=== PATIENT | female | born 1985 | race American Indian/Alaskan Native ===

== ENCOUNTER 2017-02-22 19:34 | Inpatient (IN) | payer OTHER ==
--- NOTE | 2017-02-22 19:57 | C.PDOC ---
History Of Present Illness A 31 y/o female c/o lower abdominal pain for 3 days. Pain went away, but then returned today. Patient has a hx of with her LMP on December 31. Reports dysuria, but denies fever, chills, nausea, vomiting, or diarrhea. Time Seen by Provider: 02/22/17 19:50 Chief Complaint (Nursing): Abdominal Pain History Per: Patient History/Exam Limitations: no limitations Onset/Duration Of Symptoms: Days (3) Current Symptoms Are (Timing): Still Present Severity: Mild Location Of Pain/Discomfort: RLQ, LLQ Radiation Of Pain To:: None Quality Of Discomfort: "Pain" Associated Symptoms: Urinary Symptoms (Dysuria). denies: Fever, Chills, Nausea , Vomiting, Diarrhea Exacerbating Factors: None Alleviating Factors: None Recent travel outside of the [place]: No Additional History Per: Patient Abnormal Vaginal Bleeding: No Past Medical History Reviewed: Historical Data, Nursing Documentation, Vital Signs Vital Signs: Last Vital Signs Temp 98.7 F 02/22/17 22:30 Pulse 67 02/22/17 22:30 Resp 18 02/22/17 22:30 BP 184/115 H 02/22/17 22:30 Pulse Ox 100 02/22/17 22:30 Family History: States: Unknown Family Hx Review Of Systems Except As Marked, All Systems Reviewed And Found Negative. Constitutional: Negative for: Fever, Chills Gastrointestinal: Positive for: Abdominal Pain. Negative for: Nausea, Vomiting , Diarrhea Genitourinary: Positive for: Dysuria Physical Exam - Physical Exam Appears: Non-toxic, In Acute Distress (Mild distress due to pain) Skin: Warm, Dry Head: Atraumatic, Normacephalic Oral Mucosa: Moist Cardiovascular: Rhythm Regular Respiratory: Normal Breath Sounds, No Rales, No Rhonchi, No Wheezing Gastrointestinal/Abdominal: Soft, Tenderness (Bilateral lower abdomen), No Guarding, No Rebound Back: Normal Inspection, No CVA Tenderness Pelvic: Normal External Exam, Adnexal Tenderness (left sided) Neurological/Psych: Oriented x3, Normal Speech, Normal Cognition ED Course And Treatment - Laboratory Results Result Diagrams: 02/22/17 20:34 02/22/17 20:34 Pulse Ox Interpretation: Normal Medical Decision Making Medical Decision Making: Impression: A 31 y/o female c/o lower abdominal pain for 3 days. Plans: * US pelvic * US transvaginal * Blood work up * UA * IV fluids 22:30. Spoke with Dr. 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 Disposition Discussed With .: Leonid Wakefield Doctor Will See Patient In The: Hospital Counseled Patient/Family Regarding: Diagnosis - Disposition Disposition: HOSPITALIZED Disposition Time: 22:56 Condition: STABLE Forms: [facility] (German) - Clinical Impression Clinical Impression: Abdominal pain, Ectopic - Scribe Statement The provider has reviewed the documentation as recorded by the Scribe Errol butts All medical record entries made by the Scribe were at my direction and personally dictated by me. I have reviewed the chart and agree that the record accurately reflects my personal performance of the history, physical exam, medical decision making, and the department course for this patient. I have also personally directed, reviewed, and agree with the discharge instructions and disposition.
[2017-02-22] MEDS ORDERED: Sodium Chloride 0.9% 1,000 ML IV ONE (19:58)
[2017-02-22 20:43] LABS: BASO # 0.1 K/uL (0.0-0.2); BASO % 0.6 % (0.0-2.0); HEMATOCRIT 37.9 % (34.0-47.0); LYMPH # 0.4 K/uL (1.0-4.3); LYMPH % 4.4 % (20.0-40.0); MEAN CELL VOLUME 84.1 fL (81.0-99.0); MEAN CORPUSCULAR HEMOGLOBIN 28.3 pg (27.0-31.0); MEAN CORPUSCULAR HGB CONC 33.6 g/dL (33.0-37.0); MEAN PLATELET VOLUME 9.5 fL (7.2-11.7); MONO # 0.2 K/uL (0.0-0.8); MONO % 2.4 % (0.0-10.0); PLATELET COUNT 151 K/uL (130-400); RED CELL DISTRIBUTION WIDTH 18.7 % (11.5-14.5); WHITE BLOOD COUNT 10.1 K/uL (4.8-10.8)
[2017-02-22] MEDS ORDERED: Sodium Chloride 0.9% 1,000 ML ONE (20:43)
[2017-02-22 20:49] LABS: RBC URINE 18 /hpf (0-3); URINE BACTERIA OCC (<OCC); URINE BILIRUBIN NEGATIVE (NEGATIVE); URINE COLOR Yellow (YELLOW); URINE GLUCOSE (UA) 1+ mg/dL (Normal); URINE KETONE NEGATIVE (NEGATIVE); URINE LEUKOCYTE ESTERASE TRACE Leu/uL (Negative); URINE PROTEIN 1+ mg/dL (NEGATIVE); URINE UROBILINOGEN NORMAL mg/dL (0.2-1.0); WBC URINE 3 /hpf (0-5)
[2017-02-22 20:51] LABS: URINE BLOOD 1+ (NEGATIVE)
[2017-02-22 20:53] LABS: CHLORIDE 101 mmol/L (98-107); POTASSIUM 3.6 mmol/L (3.6-5.2); SODIUM 136 mmol/L (132-148)
[2017-02-22 20:54] LABS: INR 1.1
[2017-02-22 20:55] LABS: BILIRUBIN,TOTAL 0.6 mg/dL (0.2-1.3); CARBON DIOXIDE 24 mmol/L (22-30); GFR AFRICAN-AMERICAN > 60
[2017-02-22 20:56] LABS: ALB/GLOB RATIO 1.1 (1.0-2.1); ALKALINE PHOSPHATASE 72 U/L (38-126); ALT/SGPT 29 U/L (9-52); AST/SGOT 21 U/L (14-36); BLOOD UREA NITROGEN 9 mg/dL (7-17); CALCIUM 9.6 mg/dl (8.6-10.4); GLUCOSE,RANDOM 119 mg/dL (65-105); TOTAL PROTEIN 7.4 g/dL (6.3-8.3)
[2017-02-22 21:47] LABS: NEUTROPHIL 93 % (50-75); TOTAL CELLS COUNTED 100
[2017-02-22 21:48] LABS: LARGE PLATELETS PRESENT
--- NOTE | 2017-02-22 22:11 | US ---
EXAM: US Pelvis, Transabdominal US Pelvis, Transvaginal CLINICAL HISTORY: 31 years old, female; Pain; Abdominal pain; Lower abdomen; Additional info: Lower abf pain/ spotting TECHNIQUE: Real-time transabdominal and transvaginal pelvic ultrasound (complete) with image documentation. Transvaginal imaging was used for better evaluation of the endometrium and adnexa. COMPARISON: No relevant prior studies available. FINDINGS: Uterus/cervix: Measured at 9 x 5 x 5.8 cm. Endometrial stripe measured at 1.6 cm. 3.7 cm fundal fibroid. Right ovary: Measured at 3.1 x 2.2 x 3.4 cm. Follicles. Doppler blood flow. Left ovary: 1.5 cm complex focus in the left ovary. Follicles. Doppler blood flow. Free fluid: Large amount of complex free fluid. IMPRESSION: 1.5 cm complex focus in the left ovary. Thickened endometrial stripe measuring 1.6 cm. Large amount of complex free fluid. 3.7 cm fundal fibroid. No intrauterine is identified. Appearance may represent ectopic . Differential diagnosis includes spontaneous , very early intrauterine , and ectopic . Correlate with history. Followup beta-hCG and ultrasound recommended.
--- NOTE | 2017-02-22 23:01 | CP.PCM.HP ---
History of Present Illness - History of Present Illness History of Present Illness: 31 yr lmp 01/02/17 came with c/o abdominal pain started 3 days ago , got worse today, no n/v. pt has not sen an obgyn in 1 year. preg test 1 week ago. obhhx 1 x c/s pmh htn /// psh c/s soch den sono left complex cyst. large amount of complex fluid bhcg 3800 abd soft, +tenderness on left side Present on Admission - Present on Admission Any Indicators Present on Admission: No History of DVT/PE: No History of Uncontrolled Diabetes: No Urinary Catheter: No Decubitus Ulcer Present: No Review of Systems - Gastrointestinal Gastrointestinal: Abdominal Pain Past Patient History - Infectious Disease Hx of Infectious Diseases: None - Past Social History Smoking Status: Light Smoker < 10 Cigarettes Daily - PSYCHIATRIC Hx Substance Use: No - SURGICAL HISTORY Hx Surgeries: No Meds Allergies/Adverse Reactions: Allergies Allergy/AdvReac Type Severity Reaction Status Date / Time No Known Allergies Allergy Unverified 02/22/17 19:55 Physical Exam - Constitutional Appears: Well - Respiratory Exam Respiratory Exam: Clear to Auscultation Bilateral - Cardiovascular Exam Cardiovascular Exam: REGULAR RHYTHM - Exam Speculum exam: NORMAL SPECULUM EXAM Bimanual exam: Adenexal Mass (adenxal ten), Uterine Tenderness - Extremities Exam Extremities exam: Positive for: normal inspection Results - Vital Signs Recent Vital Signs: Last Vital Signs Temp 98.7 F 02/22/17 22:30 Pulse 67 02/22/17 22:30 Resp 18 02/22/17 22:30 BP 184/115 H 02/22/17 22:30 Pulse Ox 100 02/22/17 22:30 - Labs Result Diagrams: 02/22/17 20:34 02/22/17 20:34 Labs: Laboratory Results - last 24 hr 02/22/17 02/22/17 02/22/17 20:34 20:34 20:34 WBC 10.1 RBC 4.51 Hgb 12.7 Hct 37.9 MCV 84.1 MCH 28.3 MCHC 33.6 RDW 18.7 H Plt Count 151 MPV 9.5 Neut % (Auto) 92.6 H Lymph % (Auto) 4.4 L [place] % (Auto) 2.4 Eos % (Auto) 0.0 Baso % (Auto) 0.6 Neut # 9.3 H Lymph # 0.4 L [place] # 0.2 Eos # 0.0 Baso # 0.1 Neutrophils % (Manual) 93 H Lymphocytes % (Manual) 5 L Monocytes % (Manual) 2 Platelet Estimate Normal Large Platelets Present Hypochromasia (manual) Slight Microcytosis (manual) Slight PT 11.8 INR 1.1 APTT 28 Sodium Potassium Chloride Carbon Dioxide Anion Gap BUN Creatinine Est GFR ( Amer) Est GFR (Non-Af Amer) Random Glucose Calcium Total Bilirubin AST ALT Alkaline Phosphatase Total Protein Albumin Globulin Albumin/Globulin Ratio Beta HCG, Quant Urine Color Yellow Urine Clarity Hazy Urine pH 5.0 Ur Specific [place] 1.019 Urine Protein 1+ H Urine Glucose (UA) 1+ Urine Ketones Negative Urine Blood 1+ H Urine Nitrate Negative Urine Bilirubin Negative Urine Urobilinogen Normal Ur Leukocyte Esterase Trace Urine WBC (Auto) 3 Urine RBC (Auto) 18 H Ur Squamous Epith Cells 15 H Urine Bacteria Occ H Urine HCG, Qual Positive Blood Type Antibody Screen 02/22/17 02/22/17 20:34 20:39 WBC RBC Hgb Hct MCV MCH MCHC RDW Plt Count MPV Neut % (Auto) Lymph % (Auto) [place] % (Auto) Eos % (Auto) Baso % (Auto) Neut # Lymph # [place] # Eos # Baso # Neutrophils % (Manual) Lymphocytes % (Manual) Monocytes % (Manual) Platelet Estimate Large Platelets Hypochromasia (manual) Microcytosis (manual) PT INR APTT Sodium 136 Potassium 3.6 Chloride 101 Carbon Dioxide 24 Anion Gap 15 BUN 9 Creatinine 0.8 Est GFR ( Amer) > 60 Est GFR (Non-Af Amer) > 60 Random Glucose 119 H Calcium 9.6 Total Bilirubin 0.6 AST 21 ALT 29 Alkaline Phosphatase 72 Total Protein 7.4 Albumin 3.9 Globulin 3.5 Albumin/Globulin Ratio 1.1 Beta HCG, Quant 3815.30 Urine Color Urine Clarity Urine pH Ur Specific [place] Urine Protein Urine Glucose (UA) Urine Ketones Urine Blood Urine Nitrate Urine Bilirubin Urine Urobilinogen Ur Leukocyte Esterase Urine WBC (Auto) Urine RBC (Auto) Ur Squamous Epith Cells Urine Bacteria Urine HCG, Qual Blood Type AB POSITIVE Antibody Screen Negative Assessment & Plan - Assessment and Plan (Free Text) Assessment: 31 yr at 6weeks ruptured ectopic preg Plan: plan 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
[2017-02-22] MEDS ORDERED: Midazolam 2 MG/2 ML VIAL ONE (23:49)
[2017-02-22] MEDS ORDERED: Propofol 10 mg/ml Inj (20 ML) ONE (23:49)
--- NOTE | 2017-02-22 23:49 | PCM.SURG1 ---
Surgeon's Initial Post Op Note - Surgeon's Notes Surgeon: dr cannon Paper Goods Machine Operator: DR TERAN Type of Anesthesia: General Endo Anesthesia Administered By: DR MEANS Pre-Operative Diagnosis: 31 YR WITH ABDOMINAL PAIN R/O RUPTURED ECTOPIC PREG Operative Findings: see the op report Post-Operative Diagnosis: same with right cornual preg ruptured Operation Performed: ex lap right removal of cornual preg/right slpingectomy Specimen/Specimens Removed: tube right. ectopic preg Estimated Blood Loss: EBL {In ML}: 500 Blood Products Given: N/A Drains Used: No Drains Post-Op Condition: Good Date of Surgery/Procedure: 02/23/17 Time of Surgery/Procedure: 01:00
[2017-02-22] MEDS ORDERED: Rocuronium 10 mg/ml (5 ml) ONE (23:51)
[2017-02-22] MEDS ORDERED: Succinylcholine Chloride 20 mg/ml Syr (5 ml) IV ONE (23:51)
[2017-02-22] MEDS ORDERED: ceFAZolin IV 2 gm in Dextrose 1 GM/50 ML BAG IVPB ONE (23:59)
[2017-02-23] MEDS ORDERED: Neostigmine Methylsulfate 3mg/3ml Syringe IV ONE (00:55)
[2017-02-23] MEDS: HYDROmorphone 0.5 mg/0.5 ml ISec IVP PRN ×3 (01:05→01:25)
[2017-02-23] MEDS ORDERED: Lactated Ringer's 1,000 ML IV ONE ×2 (01:05)
[2017-02-23] MEDS ORDERED: HYDROmorphone 0.5 mg/0.5 ml ISec ONE (01:08)
[2017-02-23] MEDS ORDERED: Lactated Ringer's 1,000 ML IV SCH (01:15)
[2017-02-23] MEDS: Labetalol 25mg/5ml Syringe IVP PRN ×3 (01:50→02:09)
[2017-02-23] MEDS ORDERED: DiphenhydrAMINE 50 mg/ml Inj IVP STA (06:11)
[2017-02-23 07:54] LABS: HEMATOCRIT 35.5 % (34.0-47.0); MEAN CELL VOLUME 84.6 fL (81.0-99.0); MEAN CORPUSCULAR HEMOGLOBIN 27.6 pg (27.0-31.0); MEAN CORPUSCULAR HGB CONC 32.6 g/dL (33.0-37.0); MEAN PLATELET VOLUME 9.9 fL (7.2-11.7); RED CELL DISTRIBUTION WIDTH 18.9 % (11.5-14.5); WHITE BLOOD COUNT 10.2 K/uL (4.8-10.8)
--- NOTE | 2017-02-23 09:04 | CP.PCM.PN ---
<KADI DEXTER - Last Filed: 02/23/17 09:20> Subjective - Date & Time of Evaluation Date of Evaluation: 02/23/17 Time of Evaluation: 08:45 - Subjective Subjective: Kadi Dexter PGY1 Senior Product Designer Note for Dr. Wagner Patient was seen and examined bedside. States that she is in pain but trying not to take too much pain meds. pt asking about future conceptions and the risk of further loss. Pt states that she had 3 prior abortions, and Dr. Wagner explained that she is at increased risk for future ectopics and that she should f/u with a PMD since she doesn't have one and an Ob MD as soon as she misses her period or thinks she's . Pt also states that she was on medication for htn 6 years ago but finished her course and per MD recs, has not been on meds since then. But also states she currently doesn't have PMD. Objective - Vital Signs/Intake and Output Vital Signs (last 24 hours): Temp Pulse Resp BP Pulse Ox 97.9 F 76 20 148/69 99 02/23/17 08:00 02/23/17 08:00 02/23/17 08:00 02/23/17 08:00 02/23/17 08:00 Intake and Output: 02/23/17 02/23/17 06:59 18:59 Intake Total 650 Output Total 380 Balance 270 - Medications Medications: Current Medications Docusate Sodium (Colace) 100 mg PO BID [facility] Hydralazine HCl (Apresoline) 10 mg IVP STAT [facility] Hydromorphone/Sodium Chloride (Dilaudid Associate Product Integrity Engineer) 6 mg IV Q4H PRN; Protocol PRN Reason: Pain, severe (8-10) Last Admin: 02/23/17 01:44 Dose: 6 mg Lactated Ringer's (Lactated Ringer's) 1,000 mls @ 100 mls/hr IV .Q10H [facility] Ibuprofen (Motrin Tab) 600 mg PO Q4 PRN PRN Reason: Pain, Mild (1-3) Labetalol HCl (Trandate) 5 mg IVP Q5MIN PRN PRN Reason: Systolic Blood Pressure Last Admin: 02/23/17 02:09 Dose: 5 mg Ondansetron HCl (Zofran Inj) 4 mg IVP PRN PRN PRN Reason: Nausea/Vomiting Oxycodone/Acetaminophen (Percocet 5/325 Mg Tab) 1 tab PO Q4H PRN PRN Reason: Pain, moderate (4-7) Stop: 02/25/17 23:47 Oxycodone/Acetaminophen (Percocet 5/325 Mg Tab) 2 tab PO Q4H PRN PRN Reason: Pain, severe (8-10) Stop: 02/25/17 23:47 Simethicone (Mylicon Chew Tab) 80 mg PO QID [facility] - Labs Labs: 02/23/17 07:41 PT 11.8 SECONDS (9.7-12.2) 02/22/17 20:34 INR 1.1 02/22/17 20:34 APTT 28 SECONDS (21-34) 02/22/17 20:34 - Constitutional Appears: Well - Head Exam Head Exam: ATRAUMATIC, NORMAL INSPECTION, NORMOCEPHALIC - Eye Exam Eye Exam: EOMI, Normal appearance, PERRL - ENT Exam ENT Exam: Mucous Membranes Moist - Respiratory Exam Respiratory Exam: Clear to Ausculation Bilateral, NORMAL BREATHING PATTERN. absent: Accessory Muscle Use, Rales, Rhonchi, Wheezes, Respiratory Distress - Cardiovascular Exam Cardiovascular Exam: RRR, +S1, +S2. absent: Gallop, JVD, Rubs, Murmur - GI/Abdominal Exam GI & Abdominal Exam: Soft, Tenderness (around incision site), Hypoactive Bowel Sounds Additional comments: incision site dressed and clean, dry, intact. - Exam Additional comments: Steen catheter in place - Extremities Exam Extremities Exam: absent: Calf Tenderness, Pedal Edema - Neurological Exam Neurological Exam: Alert, Awake, Oriented x3 - Psychiatric Exam Psychiatric exam: Anxious, Normal Mood - Skin Skin Exam: Normal Color, Warm Assessment and Plan - Assessment and Plan (Free Text) Assessment: 31yo LMP 01/02/17 presented with abdominal pain, s/p ex lap removal of cornual and R splingectomy on 02/22/17 for ruptured ectopic POD1 Plan: 1. Ruptured Ectopic s/p ex lap - pain mgmt: Dilaudid Pc pump, Motrin, Percocet - incision site dressed c/d/i - educated to f/u ObMelissa PEREZ at discharge for continued mgmt - LR @100 - Zofran PRN - Liquid diet tolerated 2. HTN - pt has had htn in the past and was medicated (6yrs ago) but currently doesn't take meds or f/u PMD - Labetalol PRN - medicine consulted - educated to f/u PMD at discharge for mgmt Patient was seen, discussed and evaluated with attending, Dr. Bernard Dexter PGY1 <Zyoa Wagner - Last Filed: 02/23/17 18:27> Objective - Vital Signs/Intake and Output Vital Signs (last 24 hours): Temp Pulse Resp BP Pulse Ox 97.9 F 76 18 180/100 H 99 02/23/17 09:12 02/23/17 09:12 02/23/17 09:12 02/23/17 13:29 02/23/17 09:12 Intake and Output: 02/23/17 02/23/17 06:59 18:59 Intake Total 650 Output Total 380 Balance 270 - Medications Medications: Current Medications Docusate Sodium (Colace) 100 mg PO BID [facility] Last Admin: 02/23/17 09:33 Dose: 100 mg Hydralazine HCl (Apresoline) 10 mg IVP STAT STEPHANE Hydromorphone/Sodium Chloride (Dilaudid Associate Product Integrity Engineer) 6 mg IV Q4H PRN; Protocol PRN Reason: Pain, severe (8-10) Last Admin: 02/23/17 01:44 Dose: 6 mg Lactated Ringer's (Lactated Ringer's) 1,000 mls @ 100 mls/hr IV .Q10H [facility] Ibuprofen (Motrin Tab) 600 mg PO Q4 PRN PRN Reason: Pain, Mild (1-3) Labetalol HCl (Trandate) 5 mg IVP Q5MIN PRN PRN Reason: Systolic Blood Pressure Last Admin: 02/23/17 02:09 Dose: 5 mg Metoprolol Tartrate (Lopressor) 25 mg PO BID [facility] Last Admin: 02/23/17 13:29 Dose: 25 mg Ondansetron HCl (Zofran Inj) 4 mg IVP PRN PRN PRN Reason: Nausea/Vomiting Oxycodone/Acetaminophen (Percocet 5/325 Mg Tab) 1 tab PO Q4H PRN PRN Reason: Pain, moderate (4-7) Stop: 02/25/17 23:47 Oxycodone/Acetaminophen (Percocet 5/325 Mg Tab) 2 tab PO Q4H PRN PRN Reason: Pain, severe (8-10) Stop: 02/25/17 23:47 Simethicone (Mylicon Chew Tab) 80 mg PO QID [facility] Last Admin: 02/23/17 13:40 Dose: 80 mg - Labs Labs: 02/23/17 07:41 PT 11.8 SECONDS (9.7-12.2) 02/22/17 20:34 INR 1.1 02/22/17 20:34 APTT 28 SECONDS (21-34) 02/22/17 20:34 Attending/Attestation - Attestation I have personally seen and examined this patient.: Yes I have fully participated in the care of the patient.: Yes I have reviewed all pertinent clinical information, including history, physical exam and plan: Yes Notes (Text): 02/23/17 1820: I agree with the above as documented: - 31 y.o. P1041 POD#0, S/P right salpingectomy for ruptured right (cornual) ectopic . Afebrile, vital signs noted for elevated BP. Patient with h/o BP - first diagnosed 6 years; not on any meds. Not had a complete/extensive medical evaluation in "years". As noted above. patient's questions answered as per future fertility. It was emphasized to patient, at the first sign of her menses being late, she needs to contact her electronic systems technician provider for appropriate evaluation based on increased risk of another ectopic, and the possibility of medical treatment. Patient expressed an understanding; questions answered. Patient is clinically stable. All else as above F/U Medicine consult
[2017-02-23] MEDS ORDERED: DiphenhydrAMINE 50 mg/ml Inj IVP ONE (12:00)
[2017-02-23] MEDS: Simethicone 80 mg Chewtab PO SCH ×4 (12:29→21:27)
[2017-02-23] MEDS ORDERED: HYDROmorphone 0.2 mg/ml PCA 6 MG/30 ML SOL IV ONE (17:27)
[2017-02-23] MEDS: NIFEdipine 60 mg ER Tab PO SCH (21:26)
--- NOTE | 2017-02-23 22:35 | CP.PCM.CON ---
<Emily LOPEZLa - Last Filed: 02/24/17 00:59> History of Present Illness - History of Present Illness History of Present Illness: Medicine consult for HTN Patient is a 31 year old female with PMHx of gestational HTN who presented to the hospital with complaint of abdominal pain. Patient was admitted for ruptured ectopic and is s/p ex lap removal cornual and right salpingectomy POD#1. Medicine team is consulted for HTN. Patient had elevated blood pressure of 158/110 at time of admission to the ED. Patient does report history of hypertension 7 years ago with her prior . Patient states that she did not have HTN prior to that . Patient was placed on medication during her but does not recall the name of the medication. Patient states that after delivery of her son 7 years ago she followed up with her OBGYN who slowly tapered her blood pressure medication and eventually discontinued it. Patient states that her last visit with her OBGYN was 1.5 years ago and that she did not have hypertension at that time. Patient is currently asymptomatic of hypertension. Patient denies chest pain, palpitations. Patient does report recent travel to [place] by car and reports bilateral leg swelling while she was there but it has since resolved. PMD: none OBGYN: Dr. Person PMHX:gestational HTN PSHx: 7 years ago, termination of , unilateral salpingectomy for ectopic last night FamHx: mother with HTN, diabetes, unknown bone disease SocialHx: one pack/ week smoker for 15 years- quit while with son, occasional alcohol use, denies drugs, exercises 5x/ week, currently unemployed Review of Systems - Constitutional Constitutional: absent: Chills, Fever - EENT Eyes: absent: Blurred Vision - Cardiovascular Cardiovascular: absent: Chest Pain, Diaphoresis, Dyspnea - Respiratory Respiratory: absent: Cough, Dyspnea - Gastrointestinal Gastrointestinal: Abdominal Pain - Genitourinary Genitourinary: absent: Difficulty Urinating, Dysuria - Musculoskeletal Musculoskeletal: absent: Back Pain - Neurological Neurological: absent: Dizziness, Weakness - Psychiatric Psychiatric: absent: Anxiety, Depression Past Patient History - Infectious Disease Hx of Infectious Diseases: None - Past Social History Smoking Status: Light Smoker < 10 Cigarettes Daily - PSYCHIATRIC Hx Substance Use: No - SURGICAL HISTORY Hx Surgeries: No Meds Allergies/Adverse Reactions: Allergies Allergy/AdvReac Type Severity Reaction Status Date / Time No Known Allergies Allergy Unverified 02/22/17 19:55 - Medications Medications: Current Medications Diphenhydramine HCl (Benadryl) 25 mg PO Q6 PRN PRN Reason: Itching / Pruritus Last Admin: 02/23/17 18:02 Dose: 25 mg Docusate Sodium (Colace) 100 mg PO BID [facility] Last Admin: 02/23/17 17:38 Dose: 100 mg Hydromorphone/Sodium Chloride (Dilaudid Water Supply Engineer) 6 mg IV Q4H PRN; Protocol PRN Reason: Pain, severe (8-10) Last Admin: 02/23/17 17:36 Dose: 6 mg Lactated Ringer's (Lactated Ringer's) 1,000 mls @ 100 mls/hr IV .Q10H [facility] Ibuprofen (Motrin Tab) 600 mg PO Q4 PRN PRN Reason: Pain, Mild (1-3) Metoprolol Tartrate (Lopressor) 25 mg PO BID [facility] Last Admin: 02/23/17 17:48 Dose: 25 mg Nifedipine (Procardia Xl) 60 mg PO DAILY [facility] Last Admin: 02/23/17 21:26 Dose: 60 mg Ondansetron HCl (Zofran Inj) 4 mg IVP PRN PRN PRN Reason: Nausea/Vomiting Oxycodone/Acetaminophen (Percocet 5/325 Mg Tab) 1 tab PO Q4H PRN PRN Reason: Pain, moderate (4-7) Stop: 02/25/17 23:47 Oxycodone/Acetaminophen (Percocet 5/325 Mg Tab) 2 tab PO Q4H PRN PRN Reason: Pain, severe (8-10) Stop: 02/25/17 23:47 Simethicone (Mylicon Chew Tab) 80 mg PO QID [facility] Last Admin: 02/23/17 21:27 Dose: 80 mg Physical Exam - Constitutional Appears: Non-toxic, No Acute Distress - Head Exam Head Exam: ATRAUMATIC, NORMOCEPHALIC - Eye Exam Eye Exam: EOMI - ENT Exam ENT Exam: Mucous Membranes Moist - Respiratory Exam Respiratory Exam: Clear to Auscultation Bilateral, NORMAL BREATHING PATTERN. absent: Rales, Rhonchi, Wheezes - Cardiovascular Exam Cardiovascular Exam: +S1, +S2, Systolic Murmur (radiates to left carotid) - GI/Abdominal Exam GI & Abdominal Exam: Normal Bowel Sounds, Soft, Tenderness (around surgical site ) - Extremities Exam Extremities exam: Positive for: normal inspection. Negative for: calf tenderness, pedal edema - Neurological Exam Neurological exam: Alert, Oriented x3 - Psychiatric Exam Psychiatric exam: Normal Affect - Skin Skin Exam: Dry, Warm Results - Vital Signs Recent Vital Signs: Last Vital Signs Temp 98.3 F 02/23/17 16:28 Pulse 71 02/23/17 16:28 Resp 18 02/23/17 16:28 BP 182/95 H 02/23/17 17:48 Pulse Ox 99 02/23/17 16:28 - Labs Result Diagrams: 02/23/17 07:41 02/22/17 20:34 Labs: Laboratory Results - last 24 hr 02/23/17 07:41 WBC 10.2 RBC 4.20 Hgb 11.6 Hct 35.5 MCV 84.6 MCH 27.6 MCHC 32.6 L RDW 18.9 H Plt Count 142 MPV 9.9 Assessment & Plan - Assessment and Plan (Free Text) Assessment: HTN patient's prior history of gestational HTN raises concern for preeclampsia patient's UA contaminated with epithelial cells, will get repeat, assess for proteinuria patient received IV hydralazine and labetalol, started on metoprolol 25 BID will also start nifedipine ER 60mg will repeat AM labs- CBC, CMP, coags Leg Swelling venous dopplers will reassess for proteinuria in light of concern for preeclampsia Systolic murmur will check 2D echo, carotid doppler Ectopic pt s/p unilateral salpingectomy management as per OBGYN team Plan D/W Dr. Rhodes We will continue to follow patient <Gonzalo Rhodes - Last Filed: 02/24/17 06:32> Meds - Medications Medications: Current Medications Diphenhydramine HCl (Benadryl) 25 mg PO Q6 PRN PRN Reason: Itching / Pruritus Last Admin: 02/23/17 18:02 Dose: 25 mg Docusate Sodium (Colace) 100 mg PO BID [facility] Last Admin: 02/23/17 17:38 Dose: 100 mg Lactated Ringer's (Lactated Ringer's) 1,000 mls @ 100 mls/hr IV .Q10H [facility] Ibuprofen (Motrin Tab) 600 mg PO Q4 PRN PRN Reason: Pain, Mild (1-3) Metoprolol Tartrate (Lopressor) 25 mg PO BID [facility] Last Admin: 02/23/17 17:48 Dose: 25 mg Nifedipine (Procardia Xl) 60 mg PO DAILY [facility] Last Admin: 02/23/17 21:26 Dose: 60 mg Ondansetron HCl (Zofran Inj) 4 mg IVP PRN PRN PRN Reason: Nausea/Vomiting Oxycodone/Acetaminophen (Percocet 5/325 Mg Tab) 1 tab PO Q4H PRN PRN Reason: Pain, moderate (4-7) Stop: 02/25/17 23:47 Oxycodone/Acetaminophen (Percocet 5/325 Mg Tab) 2 tab PO Q4H PRN PRN Reason: Pain, severe (8-10) Stop: 02/25/17 23:47 Last Admin: 02/24/17 05:03 Dose: 2 tab Simethicone (Mylicon Chew Tab) 80 mg PO QID [facility] Last Admin: 02/23/17 21:27 Dose: 80 mg Results - Vital Signs Recent Vital Signs: Last Vital Signs Temp 98.3 F 02/23/17 16:28 Pulse 71 02/23/17 16:28 Resp 18 02/23/17 16:28 BP 182/95 H 02/23/17 17:48 Pulse Ox 99 02/23/17 16:28 - Labs Result Diagrams: 02/23/17 07:41 02/22/17 20:34 Labs: Laboratory Results - last 24 hr 02/23/17 07:41 WBC 10.2 RBC 4.20 Hgb 11.6 Hct 35.5 MCV 84.6 MCH 27.6 MCHC 32.6 L RDW 18.9 H Plt Count 142 MPV 9.9 Assessment & Plan - Date & Time Date: 02/24/17 (I have seen and examined the patient. I agree with the findings and plan of care as documented by Dr. Diaz. Patient with hypertension. Along with leg swelling, concern for preeclampsia. Hydralazine, Labetolol, and Metoprolol ordered. Still hypertensive. Start Nifedipine and reevaluate other BP meds. Venous dopplers for LE due to recent travel history and smoking history. 2D Echo and Carotid dopplers due to auscultation of murmur and possible bruit. Monitor for acute changes.) Time: 06:30 Attending/Attestation - Attestation I have personally seen and examined this patient.: Yes I have fully participated in the care of the patient.: Yes I have reviewed all pertinent clinical information: Yes
[2017-02-23] MEDS: Oxycodone/Acetaminophen 5/325 mg Tab PO PRN (23:23)
--- NOTE | 2017-02-24 02:42 | OP ---
PROCEDURE DATE: 02/23/2017 PREOPERATIVE DIAGNOSIS: A 31-year-old, 2, para 1, at 7 weeks, rule out ruptured ectopic. POSTOPERATIVE DIAGNOSIS: A 31-year-old, 2, para 1, at 7 weeks, right cornual ruptured ectopic. PROCEDURE PERFORMED: Exploratory laparotomy; right, removal of the cornual ectopic , and right salpingectomy. SURGEON: Leonid Wakefield MD PERFORMANCE TEST ENGINEER SURGEON: Dr. Nixon who was present throughout the surgery for retraction, exposure, and helping to remove the ectopic. ANESTHESIA: General anesthesia. ANESTHESIOLOGIST: Dr. Sales. COMPLICATIONS: None. ESTIMATED BLOOD LOSS: 400 mL in the peritoneum and 100 mL blood loss. PROCEDURE IN DETAIL: After informed consent was obtained, the patient was brought to the operating room, placed on the table where general anesthesia was given. When anesthesia was found to be sufficient, she was prepped and draped in normal sterile fashion. A Steen catheter was then inserted under sterile condition. At the site of the skin incision, an incision was made with a knife, the subcutaneous cut with a Bovie. The fascia was then excised and extended on both the sides using curved Downing scissors. The fascia was first from the site of the umbilicus and then at the rectus muscle. The rectus muscle was lift up with 2 Allis and then it was cut with a knife, and the peritoneum was lifted up with Allis, which was cut with Metzenbaum scissors and went to the abdominal cavity. Too much blood started coming out. The bowel was coming. So it was packed with wet lap . Pool suction was used to suction the blood. After that, the ectopy was visualized on the right cornual. It was ruptured and bleeding. It was lift up and decision was to use the LigaSure. LigaSure was used to remove the ectopic. Then again it was held up with Allis and the ectopy was removed. The tube was removed, then lot of irrigation was done. It was found to be static. All the irrigation in the peritoneum was done to remove the blood and the blood was removed. All the laps were removed. The Surgicel was placed. After that uterus was placed inside. It was hemostatic. No bleeding. The left side ovary and tube was removed. The peritoneum was closed with 2-0 Vicryl running nonlocking fashion, muscle with 2-0 Vicryl running nonlocking fashion, and the fascia was closed with #1 Vicryl running nonlocking fashion. Subcutaneous tissue was closed with 0 Vicryl in interrupted fashion. Skin was closed using manuel. The patient tolerated the procedure well. Lap, sponge, and instrument counts were correct x2. Leonid Wakefield MD
[2017-02-24] MEDS: Oxycodone/Acetaminophen 5/325 mg Tab PO PRN ×3 (05:03→22:01)
[2017-02-24 07:40] LABS: BASO # 0.1 K/uL (0.0-0.2); BASO % 1.1 % (0.0-2.0); EOS # 0.1 K/uL (0.0-0.7); EOS % 1.4 % (0.0-4.0); LYMPH # 1.5 K/uL (1.0-4.3); LYMPH % 29.3 % (20.0-40.0); MEAN CELL VOLUME 84.9 fL (81.0-99.0); MEAN CORPUSCULAR HEMOGLOBIN 27.9 pg (27.0-31.0); MEAN CORPUSCULAR HGB CONC 32.9 g/dL (33.0-37.0); MEAN PLATELET VOLUME 9.9 fL (7.2-11.7); MONO # 0.5 K/uL (0.0-0.8); MONO % 9.5 % (0.0-10.0); RED CELL DISTRIBUTION WIDTH 18.7 % (11.5-14.5); WHITE BLOOD COUNT 5.2 K/uL (4.8-10.8)
[2017-02-24 07:46] LABS: INR 1.1
[2017-02-24 08:18] LABS: CHLORIDE 102 mmol/L (98-107); POTASSIUM 3.2 mmol/L (3.6-5.2); SODIUM 135 mmol/L (132-148)
[2017-02-24 08:20] LABS: AST/SGOT 34 U/L (14-36); BILIRUBIN,TOTAL 0.6 mg/dL (0.2-1.3); CARBON DIOXIDE 26 mmol/L (22-30); GFR AFRICAN-AMERICAN > 60; TOTAL PROTEIN 5.9 g/dL (6.3-8.3)
[2017-02-24 08:21] LABS: ALKALINE PHOSPHATASE 63 U/L (38-126); ALT/SGPT 30 U/L (9-52); BLOOD UREA NITROGEN 6 mg/dL (7-17); CALCIUM 8.7 mg/dl (8.6-10.4); GLUCOSE,RANDOM 79 mg/dL (65-105); MAGNESIUM 1.6 mg/dL (1.6-2.3); PHOSPHOROUS 3.4 mg/dL (2.5-4.5)
[2017-02-24 08:43] LABS: THYROID STIMULATING HORMONE 3.16 mIU/L (0.46-4.68)
[2017-02-24] MEDS: NIFEdipine 60 mg ER Tab PO SCH (10:24)
[2017-02-24] MEDS: Simethicone 80 mg Chewtab PO SCH ×4 (11:00→21:17)
--- NOTE | 2017-02-24 11:53 | CP.PCM.PN ---
Subjective - Date & Time of Evaluation Date of Evaluation: 02/24/17 Time of Evaluation: 08:05 - Subjective Subjective: Delayed entry: Pt seen and examined and denies any headache, blurry vision, epigsair pain, cp, sob, dizzyness, lightheandd, abodminal pain, heavy bleeding. pt reports ambulating out of bed, tolerating regular diet wihtout nause and vomiting. Pt denies any fatigue and feels fine despite blood pressure being signifacnlty elevated Objective - Vital Signs/Intake and Output Vital Signs (last 24 hours): Temp Pulse Resp BP Pulse Ox 97.7 F 71 20 205/125 H 98 02/24/17 07:23 02/24/17 07:23 02/24/17 07:23 02/24/17 09:51 02/24/17 07:23 - Medications Medications: Current Medications Diphenhydramine HCl (Benadryl) 25 mg PO Q6 PRN PRN Reason: Itching / Pruritus Last Admin: 02/23/17 18:02 Dose: 25 mg Docusate Sodium (Colace) 100 mg PO BID [facility] Last Admin: 02/24/17 10:24 Dose: 100 mg Hydralazine HCl (Apresoline) 100 mg PO BID [facility] Last Admin: 02/24/17 11:00 Dose: 100 mg Ibuprofen (Motrin Tab) 600 mg PO Q4 PRN PRN Reason: Pain, Mild (1-3) Metoprolol Tartrate (Lopressor) 25 mg PO BID [facility] Last Admin: 02/24/17 09:51 Dose: 25 mg Nifedipine (Procardia Xl) 60 mg PO DAILY [facility] Last Admin: 02/24/17 10:24 Dose: 60 mg Ondansetron HCl (Zofran Inj) 4 mg IVP PRN PRN PRN Reason: Nausea/Vomiting Oxycodone/Acetaminophen (Percocet 5/325 Mg Tab) 1 tab PO Q4H PRN PRN Reason: Pain, moderate (4-7) Stop: 02/25/17 23:47 Oxycodone/Acetaminophen (Percocet 5/325 Mg Tab) 2 tab PO Q4H PRN PRN Reason: Pain, severe (8-10) Stop: 02/25/17 23:47 Last Admin: 02/24/17 10:23 Dose: 2 tab Simethicone (Mylicon Chew Tab) 80 mg PO QID [facility] Last Admin: 02/24/17 11:00 Dose: 80 mg - Labs Labs: 02/24/17 07:33 02/24/17 07:33 PT 12.4 SECONDS (9.7-12.2) H 02/24/17 07:33 INR 1.1 02/24/17 07:33 APTT 29 SECONDS (21-34) 02/24/17 07:33 - Head Exam Head Exam: ATRAUMATIC, NORMAL INSPECTION - Eye Exam Eye Exam: EOMI, Normal appearance, PERRL Pupil Exam: NORMAL ACCOMODATION - ENT Exam ENT Exam: Mucous Membranes Moist - Neck Exam Neck Exam: Full ROM, Normal Inspection - Respiratory Exam Respiratory Exam: Clear to Ausculation Bilateral - Cardiovascular Exam Cardiovascular Exam: REGULAR RHYTHM, +S1, +S2 - GI/Abdominal Exam GI & Abdominal Exam: Soft, Normal Bowel Sounds Additional comments: NT/ND, no guarding , no rebound tenderness, no rigidity INcsion C?D/I healing well no vaignal bleeding - Back Exam Back Exam: NORMAL INSPECTION - Neurological Exam Neurological Exam: Awake, CN II-XII Intact, Oriented x3 - Psychiatric Exam Psychiatric exam: Normal Affect, Normal Mood - Skin Skin Exam: Dry, Intact, Normal Color Assessment and Plan (1) Ectopic Assessment & Plan: s/p Ex Lap for ruptured ectopic POD #1 with htn urgency , currently asympomatic 1. Elevated BPS : Medicine Dr Gregg consulted. possible transfer to telemetry 2. Pain manamgnet; percocet/ motrin 3. AM labs 4. Regular diet 5. Encouarge ambuation Status: Acute
[2017-02-24] MEDS ORDERED: Potassium Chloride 20 mEq ER Tab PO ONE (12:15)
--- NOTE | 2017-02-24 13:20 | CARD ---
APPROVED REPORT EXAM: Two-dimensional and M-mode echocardiogram with Doppler and color Doppler. Other Information Quality : GoodRhythm : NSR INDICATION Murmur Ruptured Ectopic RISK FACTORS Hypertension 2D DIMENSIONS IVSd1.6 (0.7-1.1cm)LVDd5.5 (3.9-5.9cm) PWd1.5 (0.7-1.1cm)LVDs3.7 (2.5-4.0cm) FS (%) 31.9 %LVEF (%)59.4 (>50%) M-Mode DIMENSIONS Left Atrium (MM)4.23 (2.5-4.0cm)Aortic Root3.39 (2.2-3.7cm) Aortic Cusp Exc.2.02 (1.5-2.0cm) Aortic Valve AI P 1/2 [id number] Mitral Valve MV E Tdkhjnuq78.8cm/sMV A Iyngpsjv10.0cm/sE/A ratio1.1 TDI E/Lateral E'0.0E/Medial E'0.0 Tricuspid Valve TR Peak [id number]/sTR Peak Gr.[id number] LEFT VENTRICLE The left ventricle is normal size. There is moderate concentric left ventricular hypertrophy. The left ventricular function is normal. The left ventricular ejection fraction is within the normal range. There is normal LV segmental wall motion. The left ventricular diastolic function is normal. No left ventricle thrombus noted on this study. There is no ventricular septal defect visualized. There is no left ventricular aneurysm. There is no mass noted in the left ventricle. RIGHT VENTRICLE The right ventricle is normal size. There is normal right ventricular wall thickness. The right ventricular systolic function is normal. ATRIA The left atrium is mildly dilated. The right atrium size is normal. The interatrial septum is intact with no evidence for an atrial septal defect. AORTIC VALVE The aortic valve is normal in structure. There is mild to moderate aortic regurgitation. There is no aortic valvular stenosis. There is no aortic valvular vegetation. MITRAL VALVE The mitral valve is normal in structure. There is no mitral valve stenosis. Mitral regurgitation is trace. TRICUSPID VALVE The tricuspid valve is normal in structure. There is no tricuspid valve regurgitation noted. PULMONIC VALVE The pulmonary valve is normal in structure. There is no pulmonic valvular regurgitation. GREAT VESSELS The aortic root is normal in size. The ascending aorta is normal in size. The pulmonary artery is normal. The IVC is normal in size and collapses >50% with inspiration. PERICARDIAL EFFUSION There is no pericardial effusion. <Conclusion> There is moderate concentric left ventricular hypertrophy. The left atrium is mildly dilated. There is mild to moderate aortic regurgitation. LVEF IS 60%.
--- NOTE | 2017-02-24 14:36 | CP.PCM.PN ---
<Chandler Mills - Last Filed: 02/24/17 14:31> Subjective - Date & Time of Evaluation Date of Evaluation: 02/24/17 Time of Evaluation: 14:31 - Subjective Subjective: PGY1 Note for Dr. Gregg HPI: Patient seen and examined at bedside. Multiple family members present. Doing well with no complaints at this time. Patient states she has had the abdominal binder in place all day and the dressing was changed this am. No CAMPBELL or change in vision. She denies chest pain, palpitations, syncope or dizziness. Objective - Vital Signs/Intake and Output Vital Signs (last 24 hours): Temp Pulse Resp BP Pulse Ox 97.7 F 78 18 138/79 97 02/24/17 07:23 02/24/17 11:59 02/24/17 11:59 02/24/17 11:59 02/24/17 11:59 - Medications Medications: Current Medications Diphenhydramine HCl (Benadryl) 25 mg PO Q6 PRN PRN Reason: Itching / Pruritus Last Admin: 02/23/17 18:02 Dose: 25 mg Docusate Sodium (Colace) 100 mg PO BID [facility] Last Admin: 02/24/17 10:24 Dose: 100 mg Hydralazine HCl (Apresoline) 100 mg PO BID [facility] Last Admin: 02/24/17 11:00 Dose: 100 mg Ibuprofen (Motrin Tab) 600 mg PO Q4 PRN PRN Reason: Pain, Mild (1-3) Metoprolol Tartrate (Lopressor) 25 mg PO BID [facility] Last Admin: 02/24/17 09:51 Dose: 25 mg Nifedipine (Procardia Xl) 60 mg PO DAILY [facility] Last Admin: 02/24/17 10:24 Dose: 60 mg Ondansetron HCl (Zofran Inj) 4 mg IVP PRN PRN PRN Reason: Nausea/Vomiting Oxycodone/Acetaminophen (Percocet 5/325 Mg Tab) 1 tab PO Q4H PRN PRN Reason: Pain, moderate (4-7) Stop: 02/25/17 23:47 Oxycodone/Acetaminophen (Percocet 5/325 Mg Tab) 2 tab PO Q4H PRN PRN Reason: Pain, severe (8-10) Stop: 02/25/17 23:47 Last Admin: 02/24/17 10:23 Dose: 2 tab Simethicone (Mylicon Chew Tab) 80 mg PO QID [facility] Last Admin: 02/24/17 13:08 Dose: 80 mg - Labs Labs: 02/24/17 07:33 02/24/17 07:33 PT 12.4 SECONDS (9.7-12.2) H 02/24/17 07:33 INR 1.1 02/24/17 07:33 APTT 29 SECONDS (21-34) 02/24/17 07:33 - Constitutional Appears: Well, Non-toxic, No Acute Distress - Head Exam Head Exam: ATRAUMATIC, NORMAL INSPECTION, NORMOCEPHALIC - Eye Exam Eye Exam: EOMI Pupil Exam: NORMAL ACCOMODATION - ENT Exam ENT Exam: Mucous Membranes Moist - Respiratory Exam Respiratory Exam: Clear to Ausculation Bilateral, NORMAL BREATHING PATTERN - Cardiovascular Exam Cardiovascular Exam: Murmur (systolic) - GI/Abdominal Exam GI & Abdominal Exam: Soft, Tenderness (moderate tenderness at incision site, abdominal binder in place, dressing c/d/i), Normal Bowel Sounds. absent: Distended - Neurological Exam Neurological Exam: Alert, Awake, Oriented x3 - Psychiatric Exam Psychiatric exam: Normal Affect, Normal Mood - Skin Skin Exam: Dry, Intact, Normal Color, Warm Assessment and Plan - Assessment and Plan (Free Text) Assessment: HTN * Metoprolol 25mg BID * Hydralazine 100mg BID * Nicardipine 60mg QD * BP controlled today, if stable tomorrow will sign off Leg Swelling * venous dopplers negative for DVT Systolic murmur * Echo - concentric hypertrophy 2/2 murmur since childhood * EKG - LVH Ectopic * unilateral salpingectomy POD 1 <Sidney Gregg - Last Filed: 02/24/17 18:41> Objective - Vital Signs/Intake and Output Vital Signs (last 24 hours): Temp Pulse Resp BP Pulse Ox 98.1 F 88 20 147/95 H 97 02/24/17 15:41 02/24/17 16:00 02/24/17 15:41 02/24/17 18:00 02/24/17 15:41 Intake and Output: 02/24/17 02/24/17 06:59 18:59 Intake Total 300 Balance 300 - Medications Medications: Current Medications Diphenhydramine HCl (Benadryl) 25 mg PO Q6 PRN PRN Reason: Itching / Pruritus Last Admin: 02/23/17 18:02 Dose: 25 mg Docusate Sodium (Colace) 100 mg PO BID [facility] Last Admin: 02/24/17 18:00 Dose: 100 mg Hydralazine HCl (Apresoline) 100 mg PO BID [facility] Last Admin: 02/24/17 18:01 Dose: 100 mg Ibuprofen (Motrin Tab) 600 mg PO Q4 PRN PRN Reason: Pain, Mild (1-3) Metoprolol Tartrate (Lopressor) 25 mg PO BID [facility] Last Admin: 02/24/17 18:00 Dose: 25 mg Nifedipine (Procardia Xl) 60 mg PO DAILY [facility] Last Admin: 02/24/17 10:24 Dose: 60 mg Ondansetron HCl (Zofran Inj) 4 mg IVP PRN PRN PRN Reason: Nausea/Vomiting Oxycodone/Acetaminophen (Percocet 5/325 Mg Tab) 1 tab PO Q4H PRN PRN Reason: Pain, moderate (4-7) Stop: 02/25/17 23:47 Oxycodone/Acetaminophen (Percocet 5/325 Mg Tab) 2 tab PO Q4H PRN PRN Reason: Pain, severe (8-10) Stop: 02/25/17 23:47 Last Admin: 02/24/17 10:23 Dose: 2 tab Simethicone (Mylicon Chew Tab) 80 mg PO QID [facility] Last Admin: 02/24/17 18:00 Dose: 80 mg - Labs Labs: 02/24/17 07:33 02/24/17 07:33 PT 12.4 SECONDS (9.7-12.2) H 02/24/17 07:33 INR 1.1 02/24/17 07:33 APTT 29 SECONDS (21-34) 02/24/17 07:33 Attending/Attestation - Attestation I have personally seen and examined this patient.: Yes I have fully participated in the care of the patient.: Yes I have reviewed all pertinent clinical information, including history, physical exam and plan: Yes Notes (Text): 02/24/17 18:41 Patient was seen and examined at 1 PM 02/24/17 Exam, assessment and plan were thoroughly gone over with the resident. Sidney Gregg D.O.
[2017-02-24 15:42] VITALS: RESP 20
[2017-02-25] MEDS: Oxycodone/Acetaminophen 5/325 mg Tab PO PRN ×2 (03:16→05:37)
[2017-02-25 08:02] VITALS: TEMP 98.2; O2SAT 100
--- NOTE | 2017-02-25 08:11 | CP.PCM.CON ---
History of Present Illness - History of Present Illness History of Present Illness: Hospitalist Consult Note Patient was seen and examined at 7:40 AM 02/25/17 563 B Very pleasant 31 year old female who is s/p ex lap removal cornual and right salpingectomy POD#3. Hospitalist Medicine Team was consulted for control of her blood pressure. Currently upon FULL ROS: Has not moved her bowels since her admission although there has been no nausea/ vomiting and she has been tolerating her meals. Soreness at abdominal surgical site. NO chest pain/palpitations NO SOB/cough/wheezing NO headaches NO visual changes NO paresthesias NO other complaints upon FULL ROS Exam: HEENT: NCA, EOMI, PERRLA, NO pharygeal erythema/exudate, NO cervical/ supraclavicular/submandibular lymphadenopathy, NO thyromegaly Cardio: Systolic Ejection Murmur heard in all of the auscultatory nicole Resp: CTA B/L, NO R/R/W GI: BSx4, Soft, Liver and Spleen could not be palpated, NO guarding/rebound tenderness Ext: NO edema, Capillary refill is 2 seconds, NO cyanosis, Warm, Pulses are strong and equal Neuro: CN II through XII are grossly intact Assessment and Plan: 1). HTN Better controlled on Metoprolol, Nifedipine ER, and Hydralazine 2). Bilateral leg edema s/p ex lap removal cornual and right salpingectomy Resolved Venous Dopplers of legs negative for DVT 3). Systolic Ejection Murmur 2D Echocardiogram and EKG showed evidence of left ventricular hypertrophy Carotid Dopplers were negative for significant stenosis Recommendations that were explained to patient this morning and should be again provided to her upon discharge by the primary Florist Designer Team: 1). Have the following prescriptions filled at your pharmacy and use as directed : Metoprolol 25 mg, 1 tablet by mouth 2x/day (9AM and 9 PM), Disp: #60, NO refills Nifedipine ER 60 mg, 1 tablet by mouth 1x/day (7 AM), Disp #30, NO refills Hydralazine 100 mg, 1 tablet by mouth 2x/day (9 AM and 9 PM), Disp #60, NO refills Colace 100 mg, 1 tablet by mouth 2x/day until bowel movement, Disp #15, NO refills These prescriptions were left in the front of the patient's chart to be given to her when she is ready for discharge from Florist Designer Team perspective 2). You have an enlarged heart and this likely due to the high blood pressure and the long history of the heart murmur. You will need to have close monitoring of your blood pressure. As you do not have a primary care physician, please make sure to schedule follow up with [facility] located on [address] of [address] in [place], [place]. Please call [phone] on Monday02/27/17 after 9 AM to schedule an appointment to take place in the next 7 to 10 days. They will be your primary care physicians and help to coordinate your care. They will also be the ones to provide you with refills on your prescriptions. Medicine Team will be signing off on this very pleasant patient. If Florist Designer Team has any questions please page the hospitalist service. Sidney Gregg D.O. Past Patient History - Infectious Disease Hx of Infectious Diseases: None - Past Social History Smoking Status: Light Smoker < 10 Cigarettes Daily - PSYCHIATRIC Hx Substance Use: No - SURGICAL HISTORY Hx Surgeries: No Meds Allergies/Adverse Reactions: Allergies Allergy/AdvReac Type Severity Reaction Status Date / Time No Known Allergies Allergy Unverified 02/22/17 19:55 - Medications Medications: Current Medications Diphenhydramine HCl (Benadryl) 25 mg PO Q6 PRN PRN Reason: Itching / Pruritus Last Admin: 02/23/17 18:02 Dose: 25 mg Docusate Sodium (Colace) 100 mg PO BID [facility] Last Admin: 02/24/17 18:00 Dose: 100 mg Hydralazine HCl (Apresoline) 100 mg PO BID [facility] Last Admin: 02/24/17 18:01 Dose: 100 mg Ibuprofen (Motrin Tab) 600 mg PO Q4 PRN PRN Reason: Pain, Mild (1-3) Metoprolol Tartrate (Lopressor) 25 mg PO BID [facility] Last Admin: 02/24/17 18:00 Dose: 25 mg Nifedipine (Procardia Xl) 60 mg PO DAILY [facility] Last Admin: 02/24/17 10:24 Dose: 60 mg Ondansetron HCl (Zofran Inj) 4 mg IVP PRN PRN PRN Reason: Nausea/Vomiting Oxycodone/Acetaminophen (Percocet 5/325 Mg Tab) 1 tab PO Q4H PRN PRN Reason: Pain, moderate (4-7) Stop: 02/25/17 23:47 Last Admin: 02/25/17 05:37 Dose: 1 tab Oxycodone/Acetaminophen (Percocet 5/325 Mg Tab) 2 tab PO Q4H PRN PRN Reason: Pain, severe (8-10) Stop: 02/25/17 23:47 Last Admin: 02/24/17 22:01 Dose: 2 tab Simethicone (Mylicon Chew Tab) 80 mg PO QID [facility] Last Admin: 02/24/17 21:17 Dose: 80 mg Results - Vital Signs Recent Vital Signs: Last Vital Signs Temp 98.4 F 02/24/17 23:15 Pulse 76 02/24/17 23:40 Resp 20 02/24/17 23:15 BP 143/89 02/24/17 23:15 Pulse Ox 96 02/24/17 23:15 - Labs Result Diagrams: 02/24/17 07:33 02/24/17 07:33 Labs: Laboratory Results - last 24 hr 02/24/17 02/24/17 02/24/17 07:33 07:33 07:33 Differential Comment Sodium 135 Potassium 3.2 L Chloride 102 Carbon Dioxide 26 Anion Gap 10 BUN 6 L Creatinine 0.7 Est GFR ( Amer) > 60 Est GFR (Non-Af Amer) > 60 Random Glucose 79 Hemoglobin A1c 5.1 Calcium 8.7 Phosphorus 3.4 Magnesium 1.6 Total Bilirubin 0.6 AST 34 ALT 30 Alkaline Phosphatase 63 Total Protein 5.9 L Albumin 2.9 L D Globulin 2.9 Albumin/Globulin Ratio 1.0 TSH 3rd Generation 3.16
[2017-02-25 08:34] VITALS: PULSE 73
[2017-02-25 09:30] VITALS: BP 157/95
[2017-02-25] MEDS: Simethicone 80 mg Chewtab PO SCH (09:30)
[2017-02-25] MEDS: NIFEdipine 60 mg ER Tab PO SCH (09:30)
--- NOTE | 2017-02-25 10:54 | CP.PCM.PN ---
Subjective - Date & Time of Evaluation Date of Evaluation: 02/25/17 Time of Evaluation: 10:25 - Subjective Subjective: Patient received in bed, room 563B, in very good spirits. (+) incisional pain, relieved with pain medications. Denies nausea, vomiting, lightheadedness or dizziness. Ambulating and voiding without difficulty. (+) flatus; (-) BM Objective - Vital Signs/Intake and Output Vital Signs (last 24 hours): Temp Pulse Resp BP Pulse Ox 98.2 F 73 20 157/95 H 100 02/25/17 07:56 02/25/17 08:34 02/25/17 07:56 02/25/17 09:30 02/25/17 07:56 Intake and Output: 02/25/17 02/25/17 06:59 18:59 Intake Total 500 Balance 500 - Medications Medications: Current Medications Diphenhydramine HCl (Benadryl) 25 mg PO Q6 PRN PRN Reason: Itching / Pruritus Last Admin: 02/23/17 18:02 Dose: 25 mg Docusate Sodium (Colace) 100 mg PO BID [facility] Last Admin: 02/25/17 09:30 Dose: 100 mg Hydralazine HCl (Apresoline) 100 mg PO BID [facility] Last Admin: 02/25/17 09:29 Dose: 100 mg Ibuprofen (Motrin Tab) 600 mg PO Q4 PRN PRN Reason: Pain, Mild (1-3) Metoprolol Tartrate (Lopressor) 25 mg PO BID [facility] Last Admin: 02/25/17 09:30 Dose: 25 mg Nifedipine (Procardia Xl) 60 mg PO DAILY [facility] Last Admin: 02/25/17 09:30 Dose: 60 mg Ondansetron HCl (Zofran Inj) 4 mg IVP PRN PRN PRN Reason: Nausea/Vomiting Oxycodone/Acetaminophen (Percocet 5/325 Mg Tab) 1 tab PO Q4H PRN PRN Reason: Pain, moderate (4-7) Stop: 02/25/17 23:47 Last Admin: 02/25/17 05:37 Dose: 1 tab Oxycodone/Acetaminophen (Percocet 5/325 Mg Tab) 2 tab PO Q4H PRN PRN Reason: Pain, severe (8-10) Stop: 02/25/17 23:47 Last Admin: 02/24/17 22:01 Dose: 2 tab Simethicone (Mylicon Chew Tab) 80 mg PO QID [facility] Last Admin: 02/25/17 09:30 Dose: 80 mg - Labs Labs: 02/24/17 07:33 02/24/17 07:33 PT 12.4 SECONDS (9.7-12.2) H 02/24/17 07:33 INR 1.1 02/24/17 07:33 APTT 29 SECONDS (21-34) 02/24/17 07:33 - Constitutional Appears: Well, No Acute Distress - Head Exam Head Exam: NORMAL INSPECTION - Eye Exam Eye Exam: Normal appearance - ENT Exam ENT Exam: Mucous Membranes Moist - Neck Exam Neck Exam: Full ROM - Respiratory Exam Respiratory Exam: NORMAL BREATHING PATTERN - Cardiovascular Exam Cardiovascular Exam: REGULAR RHYTHM - GI/Abdominal Exam GI & Abdominal Exam: Normal Bowel Sounds Additional comments: Soft, non distended, non tender. Low transverse incision with manuel, clean, dry and intact. - Exam Additional comments: deferred - Neurological Exam Neurological Exam: Alert, Awake, Oriented x3 - Psychiatric Exam Psychiatric exam: Normal Affect, Normal Mood - Skin Skin Exam: Dry, Intact, Normal Color, Warm Assessment and Plan (1) Ruptured ectopic Assessment & Plan: S/P expl lap with right salpingectomy - stable. Returning GI and functions - contraception discussed with patient: especially in light of recent exacerbation of elevated blood pressures, and newly prescribed and taking of anti-hypertensives - patient expressed an understanding and agrees. Patient is a smoker; OCs not recommended. Other options were discussed oincluding but not limted to Nexplanon, depoProvera and the IUD (Mirena versus Paragard). Patient is clinically stable. Status: Resolved (2) Chronic hypertension Assessment & Plan: Progress notes read and appreciated; today's note in particular noted - all recommendations noted and very much appreciated I have reviewed with patient all of the recommendations. Patient expressed an understanding and agrees to comply with medications and follow-up and all recommendations. Patient is clinically stable. Status: Chronic (3) Post-operative pain Assessment & Plan: Well controlled with narcotics Explained to patient, also taking NSAIs can perpetuate and hence improve pain relief for a longer duration with this synergistic approach Status: Chronic - Assessment and Plan (Free Text) Assessment: POD#2, 31 y.o. P1041, S/P expl lap with right salpingectomy for ruptured ( cornual) ectopic . Afebrile; vital signs stable; returned GI and functions. Chronic HTN exacerbation - work up performed and noted; BP now well controlled. Patient is clinically stable. Plan: 1) Discharge home 2) F/U, [facility], 02/27 8:30 am 3) F/U, [facility] - 7 to 10 days (patient to call for appointment: see today's consult note from Medicine Consult) 4) Rx: Percocet (5/325 mg) 1 tab p.o. every 4 hours, PRN (Severe pain) #12 5) Rx: Motrin 600 mg 1 tab p.o. every 6 hours, PRN ( Modereate pain) #30 5) Rx: Yola-Sequels (100-150mg) 1 tab by p.o. daily #30
--- NOTE | 2017-02-25 13:06 | CP.PCM.DIS ---
Provider - Provider Date of Admission: 02/22/17 23:04 Attending physician: Sidney Gregg MD Consults: Frank Genao Time Spent in preparation of Discharge (in minutes): 25 Diagnosis - Discharge Diagnosis (1) Ruptured ectopic Status: Resolved Priority: High Onset Date: ~02/22/17 (2) Chronic hypertension Status: Chronic Priority: High Onset Date: 2010 (3) Post-operative pain Status: Chronic Priority: Medium Hospital Course - Lab Results Lab Results: Most Recent Lab Values WBC 5.2 K/uL (4.8-10.8) 02/24/17 07:33 RBC 3.77 Mil/uL (3.80-5.20) L 02/24/17 07:33 Hgb 10.5 g/dL (11.0-16.0) L 02/24/17 07:33 Hct 32.0 % (34.0-47.0) L 02/24/17 07:33 MCV 84.9 fL (81.0-99.0) 02/24/17 07:33 MCH 27.9 pg (27.0-31.0) 02/24/17 07:33 MCHC 32.9 g/dL (33.0-37.0) L 02/24/17 07:33 RDW 18.7 % (11.5-14.5) H 02/24/17 07:33 Plt Count 122 K/uL (130-400) L D 02/24/17 07:33 MPV 9.9 fL (7.2-11.7) 02/24/17 07:33 Neut % (Auto) 58.7 % (50.0-75.0) 02/24/17 07:33 Lymph % (Auto) 29.3 % (20.0-40.0) 02/24/17 07:33 Brown % (Auto) 9.5 % (0.0-10.0) 02/24/17 07:33 Eos % (Auto) 1.4 % (0.0-4.0) 02/24/17 07:33 Baso % (Auto) 1.1 % (0.0-2.0) 02/24/17 07:33 Neut # 3.0 K/uL (1.8-7.0) 02/24/17 07:33 Lymph # 1.5 K/uL (1.0-4.3) 02/24/17 07:33 Brown # 0.5 K/uL (0.0-0.8) 02/24/17 07:33 Eos # 0.1 K/uL (0.0-0.7) 02/24/17 07:33 Baso # 0.1 K/uL (0.0-0.2) 02/24/17 07:33 Neutrophils % (Manual) 93 % (50-75) H 02/22/17 20:34 Lymphocytes % (Manual) 5 % (20-40) L 02/22/17 20:34 Monocytes % (Manual) 2 % (0-10) 02/22/17 20:34 Differential Comment 02/24/17 07:33 Platelet Estimate Normal (NORMAL) 02/22/17 20:34 Large Platelets Present 02/22/17 20:34 Hypochromasia (manual) Slight 02/22/17 20:34 Microcytosis (manual) Slight 02/22/17 20:34 PT 12.4 SECONDS (9.7-12.2) H 02/24/17 07:33 INR 1.1 02/24/17 07:33 APTT 29 SECONDS (21-34) 02/24/17 07:33 Sodium 135 mmol/L (132-148) 02/24/17 07:33 Potassium 3.2 mmol/L (3.6-5.2) L 02/24/17 07:33 Chloride 102 mmol/L (98-107) 02/24/17 07:33 Carbon Dioxide 26 mmol/L (22-30) 02/24/17 07:33 Anion Gap 10 (10-20) 02/24/17 07:33 BUN 6 mg/dL (7-17) L 02/24/17 07:33 Creatinine 0.7 MG/DL (0.7-1.2) 02/24/17 07:33 Est GFR ( Amer) > 60 02/24/17 07:33 Est GFR (Non-Af Amer) > 60 02/24/17 07:33 Random Glucose 79 mg/dL (65-105) 02/24/17 07:33 Hemoglobin A1c 5.1 % (4.2-6.5) 02/24/17 07:33 Calcium 8.7 mg/dl (8.6-10.4) 02/24/17 07:33 Phosphorus 3.4 mg/dL (2.5-4.5) 02/24/17 07:33 Magnesium 1.6 mg/dL (1.6-2.3) 02/24/17 07:33 Total Bilirubin 0.6 mg/dL (0.2-1.3) 02/24/17 07:33 AST 34 U/L (14-36) 02/24/17 07:33 ALT 30 U/L (9-52) 02/24/17 07:33 Alkaline Phosphatase 63 U/L (38-126) 02/24/17 07:33 Total Protein 5.9 g/dL (6.3-8.3) L 02/24/17 07:33 Albumin 2.9 g/dL (3.5-5.0) L D 02/24/17 07:33 Globulin 2.9 gm/dL (2.2-3.9) 02/24/17 07:33 Albumin/Globulin Ratio 1.0 (1.0-2.1) 02/24/17 07:33 TSH 3rd Generation 3.16 mIU/L (0.46-4.68) 02/24/17 07:33 Beta HCG, Quant 3815.30 mIU/ML 02/22/17 20:34 Urine Color Yellow (YELLOW) 02/22/17 20:34 Urine Clarity Hazy (Clear) 02/22/17 20:34 Urine pH 5.0 (5.0-8.0) 02/22/17 20:34 Ur Specific [place] 1.019 (1.003-1.030) 02/22/17 20:34 Urine Protein 1+ mg/dL (NEGATIVE) H 02/22/17 20:34 Urine Glucose (UA) 1+ mg/dL (Normal) 02/22/17 20:34 Urine Ketones Negative mg/dL (NEGATIVE) 02/22/17 20:34 Urine Blood 1+ (NEGATIVE) H 02/22/17 20:34 Urine Nitrate Negative (NEGATIVE) 02/22/17 20:34 Urine Bilirubin Negative (NEGATIVE) 02/22/17 20:34 Urine Urobilinogen Normal mg/dL (0.2-1.0) 02/22/17 20:34 Ur Leukocyte Esterase Trace Terry/uL (Negative) 02/22/17 20:34 Urine WBC (Auto) 3 /hpf (0-5) 02/22/17 20:34 Urine RBC (Auto) 18 /hpf (0-3) H 02/22/17 20:34 Ur Squamous Epith Cells 15 /hpf (0-5) H 02/22/17 20:34 Urine Bacteria Occ (<OCC) H 02/22/17 20:34 Urine HCG, Qual Positive (NEGATIVE) 02/22/17 20:34 Blood Type A POSITIVE 02/22/17 20:39 Blood Type Confirm A POSITIVE 02/22/17 20:39 Antibody Screen Negative 02/22/17 20:39 - Hospital Course Hospital Course: See progress note, 02/25/17 - Date & Time of H&P Date of H&P: 02/22/17 Time of H&P: 22:59 Discharge Exam - Head Exam Head Exam: NORMAL INSPECTION Discharge Plan - Follow Up Plan Condition: STABLE Disposition: HOME/ ROUTINE Instructions: Metoprolol (By mouth), Nifedipine (By mouth), Laxative, Stool Softeners (By mouth), Hydralazine (By mouth), Ectopic (GEN), Salpingectomy (GEN) Additional Instructions: Patient stable for discharged, cleared by medicine & [facility]. Please follow up in the medical clinic, as recommended by medical team. Take antihypertensive medications are instructed. Pain medications should be taken only when needed and as ordered. Please follow up at [facility] clinic on Tuesday 02/27 at 830AM. Motrin 600mg 1 tab by mouth every 6 hours for MODERATE pain. Percocet 1 tab by mouth every 4 hours for SEVERE pain. If symptoms return or worsen please visit the ER immediately. [address] [phone]
--- NOTE | 2017-02-28 10:38 | VASCLAB ---
PROCEDURE: HISTORY: carotid bruit COMPARISON: None available. TECHNIQUE: Grayscale and duplex Doppler evaluation of the cervical carotid and vertebral arteries were performed. The common carotid, carotid bifurcations and cervical Internal Carotid Artery (ICA) and proximal External Carotid Artery (ECA) were evaluated. The vertebral arteries were evaluated for gross patency and flow direction. Report prepared by Cam Dale, BS, RVT FINDINGS: RIGHT CAROTID ARTERIES: 1. Common Carotid Artery: No significant focal plaque formation of the right common carotid artery. Maximum Peak Systolic velocity: 72 cm/sec: End-diastolic velocity 23 cm/sec. 2. Carotid Bifurcation: plaque formation. Maximum Peak Systolic velocity: 74 cm/sec: End-diastolic velocity 19 cm/sec. 3. Internal Carotid Artery: Plaque description: 3.1. Proximal Segment: Peak systolic velocity 90 cm/sec: End-diastolic velocity 34 cm/sec - % stenosis 0-15% 3.2. Middle Segment: Peak systolic velocity 90 cm/sec: End-diastolic velocity 37 cm/sec - % stenosis 0-15% 3.3. Distal Segment: Peak systolic velocity 82 cm/sec: End-diastolic velocity 31 cm/sec - % stenosis 0-15% 4. External Carotid Artery: No significant focal plaque formation. Peak systolic velocity 130 cm/sec 5. ICA/CCA Ratio: 1.2 LEFT CAROTID ARTERIES: 1. Common Carotid Artery: No significant focal plaque formation of the left common carotid artery. Maximum Peak Systolic velocity: 83 cm/sec: End-diastolic velocity 20 cm/sec. 2. Carotid Bifurcation: plaque formation. Maximum Peak Systolic velocity: 82 cm/sec: End-diastolic velocity 17 cm/sec. 3. Internal Carotid Artery: Plaque description: 3.1. Proximal Segment: Peak systolic velocity 73 cm/sec: End-diastolic velocity 34 cm/sec - % stenosis 0-15% 3.2. Middle Segment: Peak systolic velocity 59 cm/sec: End-diastolic velocity 32 cm/sec - % stenosis 0-15% 3.3. Distal Segment: Peak systolic velocity 103 cm/sec: End-diastolic velocity 37 cm/sec - % stenosis 0-15% 4. External Carotid Artery: No significant focal plaque formation. Peak systolic velocity 125 cm/sec 5. ICA/CCA Ratio: 1.2 VERTEBRAL ARTERIES: 1. Right Vertebral Artery: The right vertebral artery flow direction is antegrade. 2. Left Vertebral Artery: The left vertebral artery flow direction is antegrade. OTHER FINDINGS: 1. Right Brachial Blood pressure: 196 mmHg. 2. Left Brachial Blood pressure: 190 mmHg. IMPRESSION: RIGHT: Duplex scan does not suggest hemodynamically significant stenosis of the right extracranial carotid arteries. LEFT: Duplex scan does not suggest hemodynamically significant stenosis of the left extracranial carotid arteries.
--- NOTE | 2017-02-28 10:41 | VASCLAB ---
PROCEDURE: Lower Extremity Venous Duplex Exam. HISTORY: leg swelling s/p long car trip PRIORS: None. TECHNIQUE: Bilateral common femoral, femoral, popliteal and posterior tibial, peroneal and great saphenous veins were evaluated. Flow was assessed with color Doppler, compressibility, assessment of phasic flow and augmentation response. Report prepared by KARLI Arevalo, RVT FINDINGS: RIGHT: 1. Common Femoral Vein: 1.1. Compressibility - Fully compressible: Thrombus - None : Flow - Phasic: Augmentation -Normal: Reflux - None. 2. Femoral Vein: 2.1. Compressibility - Fully compressible: Thrombus - None : Flow - Phasic: Augmentation -Normal: Reflux - None. 3. Popliteal Vein: 3.1. Compressibility - Fully compressible: Thrombus - None : Flow - Phasic: Augmentation -Normal: Reflux - None. 4. Posterior Tibial Vein: 4.1. Compressibility - Fully compressible: Thrombus - None: Flow - Phasic: Augmentation -Normal: Reflux - None. 5. Peroneal Vein: 5.1. Compressibility - Fully compressible: Thrombus - None: Flow - Phasic: Augmentation -Normal: Reflux - None. 6. Great Saphenous Vein: 6.1. Compressibility - Fully compressible: Thrombus - None: Flow - Phasic: Augmentation - Normal: Reflux - None. LEFT: 1. Common Femoral Vein: 1.1. Compressibility - Fully compressible: Thrombus - None: Flow - Phasic: Augmentation -Normal: Reflux - None. 2. Femoral Vein: 2.1. Compressibility - Fully compressible: Thrombus - None: Flow - Phasic: Augmentation -Normal: Reflux - None. 3. Popliteal Vein: 3.1. Compressibility - Fully compressible: Thrombus - None : Flow - Phasic: Augmentation -Normal: Reflux - None. 4. Posterior Tibial Vein: 4.1. Compressibility - Fully compressible: Thrombus - None: Flow - Phasic: Augmentation -Normal: Reflux - None. 5. Peroneal Vein: 5.1. Compressibility - Fully compressible: Thrombus - None: Flow - Phasic: Augmentation -Normal: Reflux - None. 6. Great Saphenous Vein: 6.1. Compressibility - Fully compressible: Thrombus - None: Flow - Phasic: Augmentation - Normal: Reflux - None. OTHER FINDINGS: Right: None significant. Left: None significant. IMPRESSION: Right: No evidence of deep or superficial vein thrombosis of the right lower extremity. Normal valve function noted of the right side. Left: No evidence of deep or superficial vein thrombosis of the left lower extremity. Normal valve function noted of the left side.
--- NOTE | 2017-03-08 00:46 | CARD ---
APPROVED REPORT EKG Measurement Heart [id number] <Conclusion> Normal sinus rhythm Voltage criteria for left ventricular hypertrophy Nonspecific T wave abnormality Abnormal ECG
== END 2017-02-25 14:02 | disposition home or self-care (01) | DRG 378 ==
LOC: C.ER 19:34 → C.4M 23:04 → C.5T 02-24 10:02
PROVIDERS: ADMIT Family Medicine; ATTEND Family Medicine
PROC: 10T20ZZ Resection of Products of Conception, Ectopic, Open Approach (ICD-10-PCS; principal; 2017-02-22)
PROC: 0UT50ZZ Resection of Right Fallopian Tube, Open Approach (ICD-10-PCS; 2017-02-22)
DX: O00.10 Tubal pregnancy without intrauterine pregnancy (principal); I11.9 Hypertensive heart disease without heart failure; F17.210 Nicotine dependence, cigarettes, uncomplicated; O99.331 Smoking (tobacco) complicating pregnancy, first trimester; O16.5 Unspecified maternal hypertension, complicating the puerperium; Z82.49 Family history of ischemic heart disease and other diseases of the circulatory system; Z83.3 Family history of diabetes mellitus; Z79.899 Other long term (current) drug therapy; Z3A.00 Weeks of gestation of pregnancy not specified

== ENCOUNTER 2017-03-01 09:27 | Emergency (ER) | payer OTHER ==
[2017-03-01 09:49] VITALS: TEMP 98
--- NOTE | 2017-03-01 10:22 | C.PDOC ---
History Of Present Illness 31 yo female , hx of 3 abortions and recent hx of ectopic , sent to ER from the OB clinic this morning after she was found to have elevated blood pressure at triage. Patient was admitted on 02/22/17 to OB floor for ruptured ectopic and is s/p ex lap removal cornual and right salpingectomy and went to the clinic today as scheduled for staple removal today. Pt reports, Medicine team was consulted her inpatient for HTN. Pt admits, was discharged from hospital with RX: metoprolol, hydralazine, and nifedipine. Patient reports she took her blood pressure medications this morning. At present, patient denies any active physical complaints. Denies headache, fever, chills, chest pain, palpitations, shortness of breath, nausea, vomiting, extremity swelling, or other associated symptoms. FYI Info from previous pt's visits: Patient had elevated blood pressure during Hospital stay 02/22-02/24/17. Patient does report history of hypertension 7 years ago with her prior . Patient states that she did not have HTN prior to that . Patient was placed on medication during her but does not recall the name of the medication. Patient states that after delivery of her son 7 years ago she followed up with her OBGYN who slowly tapered her blood pressure medication and eventually discontinued it. Time Seen by Provider: 03/01/17 09:50 Chief Complaint (Nursing): High Blood Pressure History Per: Patient History/Exam Limitations: no limitations Onset/Duration Of Symptoms: Hrs Current Symptoms Are (Timing): Gone Associated Symptoms: denies: Chest Pain, Blurred Vision, Focal Weakness, Headache Quality Of Symptoms: Asymptomatic Recent travel outside of the [place]: No Past Medical History Reviewed: Historical Data, Nursing Documentation, Vital Signs Vital Signs: Last Vital Signs Temp 98.0 F 03/01/17 12:32 Pulse 72 03/01/17 12:32 Resp 16 03/01/17 12:32 BP 178/107 H 03/01/17 12:32 Pulse Ox 100 03/01/17 12:32 - Medical History PMH: HTN (Gestational Hypertension) - [facility] Procedures RESECTION OF PRODUCTS OF CONCEPTION, ECTOPIC, OPEN APPROACH (02/22/17) RESECTION OF RIGHT FALLOPIAN TUBE, OPEN APPROACH (02/22/17) Family History: States: Unknown Family Hx - Social History Hx Alcohol Use: Yes Hx Substance Use: No - Immunization History Hx Tetanus Toxoid Vaccination: No Hx Influenza Vaccination: No Hx Pneumococcal Vaccination: No Review Of Systems Except As Marked, All Systems Reviewed And Found Negative. Constitutional: Negative for: Fever, Chills Cardiovascular: Negative for: Chest Pain, Palpitations, Edema Respiratory: Negative for: Shortness of Breath Gastrointestinal: Negative for: Nausea, Vomiting Skin: Negative for: Rash Neurological: Negative for: Headache, Dizziness Physical Exam - Physical Exam Appears: Well, Non-toxic, No Acute Distress Skin: Normal Color, Warm, Dry, No Rash, No Ecchymosis Head: Atraumatic, Normacephalic Eye(s): bilateral: PERRL Nose: No Discharge Oral Mucosa: Moist, No Drooling Tongue: Normal Appearing Lips: Normal Appearing Throat: No Erythema, No Exudate Neck: Trachea Midline, No Midline Cervical Tenderness, No Paracervical Tenderness, No Step Off Deformity, Supple Chest: Symmetrical Cardiovascular: Rhythm Regular, No Edema, No Friction Rub, No Murmur, No JVD Respiratory: No Rales, No Rhonchi, No Stridor, No Wheezing, Other ((-) carotid bruits) Gastrointestinal/Abdominal: Soft, No Tenderness, No Guarding, No Rebound, Other (manuel intact suprapubic area, no signs of infection) Back: No CVA Tenderness Extremity: No Tenderness, No Pedal Edema, Capillary Refill (< 2 sec.), No Deformity, No Swelling, Other (no peripheral edema) Neurological/Psych: Oriented x3, Normal Speech, Normal Cognition, Normal Motor, Normal Sensation, Normal Reflexes ED Course And Treatment - Laboratory Results Result Diagrams: 03/01/17 10:21 03/01/17 10:21 Lab Interpretation: No Acute Changes ECG: Interpreted By Me ECG Rhythm: Sinus Rhythm ECG Interpretation: No Changes From Prior Interpretation Of ECG: left axis, T wave inversion aVL, no specific ST changes Rate From EC (bpm) O2 Sat by Pulse Oximetry: 99 (RA) Pulse Ox Interpretation: Normal - Other Rad CXR X-Ray: Read By Radiologist Interpretation: COMPARISON: None available. TECHNIQUE: Chest PA and lateral. FINDINGS: Examination limited by habitus. LUNGS: No focal consolidation. Please note that chest x-ray has limited sensitivity for the detection of pulmonary masses. PLEURA: No significant pleural effusion identified. No definite pneumothorax . CARDIOVASCULAR: Cardiomegaly. OSSEOUS STRUCTURES: No acute osseous abnormality identified. VISUALIZED UPPER ABDOMEN: Unremarkable. OTHER FINDINGS: None. IMPRESSION: Cardiomegaly. Progress Note: EKG, CXR, labs ordered and reviewed. Pt was OBS in ED for 2 hours and remianed asymptomatic. On re-evaluation, pt is afebrile, hemodynamicaly stable. Non-toxic. PulsEOx 100% RA. neck: Supple, (-) JVD, (- ) carotid bruits. ENT: no acute findings. Lungs: CTA B/L, BS equal B/L. CVS: (+)S1S2, reg., (-) murmur. Abd: benign, (-) guarding, (-) rebound. Back: (-) CVA tenderness. Neuorlogicaly intact. Skin: lower abdominal isicion site cleaned, manuel removed without difficulty, no cellulitis, no wound draining. Diagnostics review and appears without acute abormalities. Pt has clinical findings c/w HTN, chronic, under clinic care. Pt ompliant with HTNmedictaion. Pt has next PMD re-eval at clinic next week. Case discussed with ED attending, diagnostics review. Discharge with outpt f/u recommend at present time. Pt advised. ref. to f/u with PMD in 1-2 days for re-eavl. Return to ED at any time if any worsening or new changes. Pt udnerstand, stable for discharge now. Disposition Counseled Patient/Family Regarding: Diagnosis, Need For Followup - Disposition Referrals: [facility] [Outside] Disposition: HOME/ ROUTINE Disposition Time: 11:36 Condition: STABLE Additional Instructions: TAKE BLOOD PRESSURE MEDICATION PRESCRIBED FOLLOW UP WITH PMD, CARDIOLOGY IN 1-2 DAYS FOR RE-EVALUATION. RETURN TO ED IF ANY WORSENING OR NEW CHANGES. 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 - Scribe Statement The provider has reviewed the documentation as recorded by the Scribe SM All medical record entries made by the Scribe were at my direction and personally dictated by me. I have reviewed the chart and agree that the record accurately reflects my personal performance of the history, physical exam, medical decision making, and the department course for this patient. I have also personally directed, reviewed, and agree with the discharge instructions and disposition.
[2017-03-01 10:30] LABS: BASO # 0.1 K/uL (0.0-0.2); BASO % 1.4 % (0.0-2.0); EOS # 0.2 K/uL (0.0-0.7); EOS % 3.3 % (0.0-4.0); HEMATOCRIT 34.7 % (34.0-47.0); LYMPH # 1.2 K/uL (1.0-4.3); MEAN CELL VOLUME 86.6 fL (81.0-99.0); MEAN CORPUSCULAR HEMOGLOBIN 28.3 pg (27.0-31.0); MEAN CORPUSCULAR HGB CONC 32.7 g/dL (33.0-37.0); MEAN PLATELET VOLUME 9.1 fL (7.2-11.7); MONO # 0.4 K/uL (0.0-0.8); MONO % 7.5 % (0.0-10.0); NRBC % 0.1 % (0.0-2.0); RED CELL DISTRIBUTION WIDTH 17.6 % (11.5-14.5); WHITE BLOOD COUNT 5.3 K/uL (4.8-10.8)
[2017-03-01 10:36] LABS: CHLORIDE 103 mmol/L (98-107)
[2017-03-01 10:37] LABS: POTASSIUM 3.8 mmol/L (3.6-5.2); SODIUM 138 mmol/L (132-148)
[2017-03-01 10:39] LABS: GFR AFRICAN-AMERICAN > 60
[2017-03-01 10:40] LABS: BLOOD UREA NITROGEN 11 mg/dL (7-17); CALCIUM 9.4 mg/dl (8.6-10.4); CARBON DIOXIDE 21 mmol/L (22-30); GLUCOSE,RANDOM 77 mg/dL (65-105)
[2017-03-01 10:46] LABS: INR 1.1
--- NOTE | 2017-03-01 10:46 | RAD ---
HISTORY: SOB COMPARISON: None available. TECHNIQUE: Chest PA and lateral FINDINGS: Examination limited by habitus. LUNGS: No focal consolidation. Please note that chest x-ray has limited sensitivity for the detection of pulmonary masses. PLEURA: No significant pleural effusion identified. No definite pneumothorax . CARDIOVASCULAR: Cardiomegaly. OSSEOUS STRUCTURES: No acute osseous abnormality identified. VISUALIZED UPPER ABDOMEN: Unremarkable. OTHER FINDINGS: None. IMPRESSION: Cardiomegaly.
[2017-03-01 11:11] LABS: THYROID STIMULATING HORMONE 0.12 mIU/L (0.46-4.68)
[2017-03-01 12:33] VITALS: BP 178/107; PULSE 72; RESP 16
--- NOTE | 2017-03-01 20:18 | CARD ---
APPROVED REPORT EKG Measurement Heart [id number] <Conclusion> Normal sinus rhythm Voltage criteria for left ventricular hypertrophy T wave abnormality, consider lateral ischemia Abnormal ECG
[2017-03-02 10:09] VITALS: O2SAT 99
== END 2017-03-01 12:33 | disposition home or self-care (01) ==
LOC: C.ER 09:27
DX: O16.9 Unspecified maternal hypertension, unspecified trimester (principal)
CPT/HCPCS: 71020; 80048; 84443; 84484; 84702; 85025; 85610; 85730; 93005; 96374; 99284; J0360

== ENCOUNTER 2017-07-21 23:41 | Emergency (ER) | payer OTHER ==
[2017-07-21 23:42] VITALS: BMI 27.3
--- NOTE | 2017-07-22 00:26 | C.PDOC ---
History Of Present Illness patient presents with 2 days of nausea, vomiting and some abdominal pain. Has had 3-5 episodes of emesis today. Not tolerating po. Ate some fish today and had vomited the food. Time Seen by Provider: 07/22/17 00:26 Chief Complaint (Nursing): Abdominal Pain History Per: Patient History/Exam Limitations: no limitations Onset/Duration Of Symptoms: Days (2) Current Symptoms Are (Timing): Still Present Context: Food Severity: Moderate Pain Scale Rating Of: 4 Location Of Pain/Discomfort: Diffuse Radiation Of Pain To:: None Quality Of Discomfort: Dull, Cramping Associated Symptoms: Nausea, Vomiting. denies: Fever, Chills Exacerbating Factors: Food Alleviating Factors: None Last Bowel Movement: Today Recent travel outside of the [place]: No Additional History Per: Patient Past Medical History Reviewed: Historical Data, Nursing Documentation, Vital Signs Vital Signs: Last Vital Signs Temp 98.8 F 07/22/17 05:00 Pulse 63 07/22/17 05:00 Resp 16 07/22/17 05:00 BP 177/104 H 07/22/17 05:00 Pulse Ox 98 07/22/17 05:01 - Medical History PMH: HTN (Gestational Hypertension) - [facility] Procedures RESECTION OF PRODUCTS OF CONCEPTION, ECTOPIC, OPEN APPROACH (02/22/17) RESECTION OF RIGHT FALLOPIAN TUBE, OPEN APPROACH (02/22/17) Family History: States: No Known Family Hx - Social History Hx Alcohol Use: Yes Hx Substance Use: No - Immunization History Hx Tetanus Toxoid Vaccination: No Hx Influenza Vaccination: No Hx Pneumococcal Vaccination: No Review Of Systems Constitutional: Negative for: Fever, Chills Eyes: Negative for: Redness ENT: Negative for: Throat Pain Cardiovascular: Negative for: Chest Pain Respiratory: Negative for: Shortness of Breath Gastrointestinal: Positive for: Nausea, Vomiting, Abdominal Pain. Negative for : Diarrhea, Constipation Genitourinary: Negative for: Dysuria Musculoskeletal: Negative for: Back Pain Skin: Negative for: Rash Neurological: Negative for: Weakness Psych: Negative for: Anxiety Physical Exam - Physical Exam Appears: Non-toxic Skin: Warm, Dry Eye(s): bilateral: Normal Inspection Oral Mucosa: Dry Neck: Supple Chest: Symmetrical Cardiovascular: Rhythm Regular Respiratory: No Rales, No Rhonchi, No Wheezing Gastrointestinal/Abdominal: Soft, Tenderness (mild , diffuse), No Distention, No Guarding, No Rebound Back: Normal Inspection Extremity: Normal ROM Extremity: Bilateral: Atraumatic Pulses: Left Dorsalis Pedis: Normal, Right Dorsalis Pedis: Normal Neurological/Psych: Oriented x3, Normal Speech, Normal Cognition Gait: Steady ED Course And Treatment - Laboratory Results Result Diagrams: 07/22/17 01:04 07/22/17 01:04 O2 Sat by Pulse Oximetry: 98 Pulse Ox Interpretation: Normal Progress Note: pt states that she has not been taking her blood pressure medication because of the nause and vomiting Reevaluation Time: 04:49 Reassessment Condition: Improved Disposition Counseled Patient/Family Regarding: Studies Performed, Diagnosis, Need For Followup, Rx Given - Disposition Referrals: Clinic,Med Surg [Primary Care Provider] - Disposition: HOME/ ROUTINE Disposition Time: 00:26 Condition: FAIR Additional Instructions: Please return if symptoms recur or have heavy vaginal bleeding. Do return in about 3-5 days for a repeat HCG level and ultrasound Prescriptions: Nitrofurantoin Macrocrystals [Macrobid] 1 cap PO BID #14 cap Ondansetron ODT [Zofran ODT] 1 odt PO BID PRN #6 odt PRN Reason: Nausea/Vomiting Instructions: (ED), Preeclampsia (ED), Acute Nausea and Vomiting (ED) , Urinary Tract Infection in (ED) Forms: [facility] (Wallisian) - Clinical Impression Clinical Impression: Nausea, Vomiting, , UTI (urinary tract infection) during , Pre-eclampsia
[2017-07-22] MEDS ORDERED: Sodium Chloride 0.9% 1,000 ML IV ONE (00:33)
[2017-07-22] MEDS ORDERED: Sodium Chloride 0.9% 1,000 ML ONE (00:45)
[2017-07-22 01:02] LABS: HCG,QUALITATIVE URINE POSITIVE (NEGATIVE)
[2017-07-22 01:08] LABS: SQUAMOUS EPITHIAL 17 /hpf (0-5); URINE BILIRUBIN NEGATIVE (NEGATIVE); URINE BLOOD NEGATIVE (NEGATIVE); URINE CLARITY Hazy (Clear); URINE COLOR Yellow (YELLOW); URINE GLUCOSE (UA) 1+ mg/dL (Normal); URINE LEUKOCYTE ESTERASE 3+ Leu/uL (Negative); URINE NITRATE NEGATIVE (NEGATIVE); URINE PROTEIN NEGATIVE (NEGATIVE); URINE UROBILINOGEN NORMAL mg/dL (0.2-1.0)
[2017-07-22 01:18] LABS: BASO % 0.7 % (0.0-2.0); EOS # 0.1 K/uL (0.0-0.7); EOS % 1.6 % (0.0-4.0); HEMOGLOBIN 10.5 g/dL (11.0-16.0); LYMPH # 1.3 K/uL (1.0-4.3); LYMPH % 28.5 % (20.0-40.0); MEAN CELL VOLUME 78.2 fL (81.0-99.0); MEAN CORPUSCULAR HEMOGLOBIN 25.2 pg (27.0-31.0); MEAN CORPUSCULAR HGB CONC 32.3 g/dL (33.0-37.0); MEAN PLATELET VOLUME 9.5 fL (7.2-11.7); MONO # 0.3 K/uL (0.0-0.8); MONO % 7.8 % (0.0-10.0); NEUT # 2.7 K/uL (1.8-7.0); NEUT % 61.4 % (50.0-75.0); RBC 4.14 Mil/uL (3.80-5.20); RED CELL DISTRIBUTION WIDTH 18.1 % (11.5-14.5); WHITE BLOOD COUNT 4.4 K/uL (4.8-10.8)
[2017-07-22 01:33] LABS: ALB/GLOB RATIO 1.1 (1.0-2.1); ALBUMIN 3.6 g/dL (3.5-5.0); ALT/SGPT 20 U/L (9-52); AST/SGOT 18 U/L (14-36); BLOOD UREA NITROGEN 8 mg/dL (7-17); GFR AFRICAN-AMERICAN > 60; GFR NON-AFRICAN AMERICAN > 60; LIPASE 66 U/L (23-300)
--- NOTE | 2017-07-22 04:11 | US ---
EXAM: US First Trimester, Transabdominal CLINICAL HISTORY: 32 years old, female; Pain; complicated by abdominal or pelvic pain; Lower; First trimester; Gestational age or lmp: 1-5-18; ; Prior surgery; Surgery date: 1-6 months; Surgery type: Ectopic, one of the tube was removed january 2017; Additional info: Abdominal pain TECHNIQUE: Real-time transabdominal obstetrical ultrasound of the maternal pelvis and a first trimester with image documentation. COMPARISON: No relevant prior studies available. FINDINGS: Gestation: Gestational sac. Yolk sac. No pole. Mean sac diameter of 1.1 cm, correlating with gestational age of 5 weeks 2 days. Uterus/cervix: No subchorionic hemorrhage. No cervical dilatation or effacement. Ovaries: RIGHT ovary: Normal. LEFT ovary: 1.7 x 1.5 x 1.6 cm complex hypoechoic lesion with internal echoes. LEFT ovary: 1.7 x 1.3 x 1.5 cm hypoechoic lesion. No adnexal masses. Free fluid: No significant free fluid. IMPRESSION: 1. Intrauterine , of uncertain viability. Recommend followup. 2. Complex LEFT ovarian lesion. DDX: Hemorrhagic cyst, neoplasm, ectopic . 3. Probable LEFT ovarian cyst. EXAM: US , Transvaginal CLINICAL HISTORY: 32 years old, female; Pain; complicated by abdominal or pelvic pain; Lower; First trimester; Gestational age or lmp: 1-5-18; ; Prior surgery; Surgery date: 1-6 months; Surgery type: Ectopic, one of the tube was removed january 2017; Additional info: Abdominal pain TECHNIQUE: Real-time transvaginal obstetrical ultrasound of the maternal pelvis and a first trimester with image documentation. Transvaginal imaging was used for better evaluation of the fetus and adnexa. COMPARISON: No relevant prior studies available. FINDINGS: Gestation: Gestational sac. Yolk sac. No pole. Mean sac diameter of 1.1 cm, correlating with gestational age of 5 weeks 2 days. Uterus/cervix: No subchorionic hemorrhage. No cervical dilatation or effacement. Ovaries: RIGHT ovary: Normal. LEFT ovary: 1.7 x 1.5 x 1.6 cm complex hypoechoic lesion with internal echoes. LEFT ovary: 1.7 x 1.3 x 1.5 cm hypoechoic lesion. No adnexal masses. Free fluid: No significant free fluid.
[2017-07-22 05:00] VITALS: BP 177/104; PULSE 63; RESP 16; TEMP 98.8
[2017-07-22 05:01] VITALS: O2SAT 98
== END 2017-07-22 05:20 | disposition home or self-care (01) ==
LOC: C.ER 23:41 → SUPCPDRO 23:41 → C.ER 07-22 05:20
DX: O23.40 Unspecified infection of urinary tract in pregnancy, unspecified trimester (principal); O14.90 Unspecified pre-eclampsia, unspecified trimester; O21.9 Vomiting of pregnancy, unspecified; Z3A.00 Weeks of gestation of pregnancy not specified
CPT/HCPCS: 76805; 76817; 80053; 81001; 83690; 84702; 84703; 85025; 96374; 96375; 99285; J2405; J7040

== ENCOUNTER 2017-07-28 20:53 | Inpatient (IN) | payer OTHER ==
[2017-07-28 20:53] VITALS: BMI 27.3
--- NOTE | 2017-07-28 22:04 | C.PDOC ---
History Of Present Illness Patient is a 30 y/o female, with a Hx of HTN and ruptured ectopic , presents to the ED with a complaint of abdominal pain. Patient was seen in ED 5 days ago and received a US revealing a gestational sac, yolk sac, and left adnexal lesion; patient returns to ED today with same symptoms. Patient admits to not being compliant with medication. Denies fever or any other physical complaints at this time. Time Seen by Provider: 07/28/17 21:53 Chief Complaint (Nursing): Abdominal Pain History Per: Patient History/Exam Limitations: no limitations Onset/Duration Of Symptoms: Days Current Symptoms Are (Timing): Still Present Associated Symptoms: denies: Fever Recent travel outside of the [place]: No Past Medical History Reviewed: Historical Data, Nursing Documentation, Vital Signs Vital Signs: Last Vital Signs Temp 99 F 07/30/17 16:00 Pulse 82 07/30/17 16:00 Resp 20 07/30/17 16:00 BP 170/108 H 07/30/17 16:00 Pulse Ox 100 07/31/17 08:40 - Medical History PMH: HTN (Gestational Hypertension) Other PMH: ruptured ectopic Other Surgeries: RESECTION OF PRODUCTS OF CONCEPTION, ECTOPIC, OPEN APPROACH (). RESECTION OF RIGHT FALLOPIAN TUBE, OPEN APPROACH (02/22/17) - [facility] Procedures RESECTION OF PRODUCTS OF CONCEPTION, ECTOPIC, OPEN APPROACH (02/22/17) RESECTION OF RIGHT FALLOPIAN TUBE, OPEN APPROACH (02/22/17) Family History: States: Unknown Family Hx - Social History Hx Tobacco Use: No (former smoker) Hx Alcohol Use: No Hx Substance Use: No - Immunization History Hx Tetanus Toxoid Vaccination: No Hx Influenza Vaccination: No Hx Pneumococcal Vaccination: No Review Of Systems Except As Marked, All Systems Reviewed And Found Negative. Gastrointestinal: Positive for: Abdominal Pain Physical Exam - Physical Exam Appears: Well, Non-toxic, No Acute Distress Skin: Normal Color, Warm, Dry Head: Atraumatic, Normacephalic Oral Mucosa: Moist Chest: Symmetrical Cardiovascular: Rhythm Regular, No Murmur Respiratory: Normal Breath Sounds, No Rales, No Rhonchi, No Wheezing Gastrointestinal/Abdominal: Soft, Tenderness (LLQ and RUQ tenderness) Extremity: Normal ROM Neurological/Psych: Oriented x3, Normal Speech, Normal Cognition, Other (no focal deficits) ED Course And Treatment - Laboratory Results Result Diagrams: 07/30/17 20:02 07/30/17 20:02 O2 Sat by Pulse Oximetry: 100 - CT Scan/US US Transvaginal Other Rad Studies (CT/US): Interpreted By Me, Read By Radiologist CT/US Interpretation: EXAM: US , Transvaginal. EXAM DATE/TIME: 2017 10:02 PM. CLINICAL HISTORY: 32 years old, female; Pain; complicated by abdominal or pelvic pain; Lower; First. trimester; Gestational age or lmp: 1-5-18; ; Additional info: Abd pain and . TECHNIQUE : Real-time transvaginal obstetrical ultrasound of the maternal pelvis and a first trimester . with image documentation. Transvaginal imaging was used for better evaluation of the fetus and. adnexa. COMPARISON: PELVIS/ TRANSVAG US 2017-07-22 02:47. FINDINGS: Gestation: There is a single intrauterine gestation.Gestational sac has mean diameter 17.6 mm.A. yolk sac is present, internal diameter measures 2 mm. With pole 5.5 mm. There is embryonic. heart rate of 124 beats per minute. Uterus: Uterus measures approximately 9.8 x 5.4 x 6.3 cm. Cervix is closed, 3.6 mm in length. Ovaries: Left ovary measures approximately 4.1 x 2.7 x 3.3 cm. There is a complex cyst. There is a. corpus luteum. There is expected blood flow on Doppler imaging right ovary measures approximately. 2.8 x 2.1 x 1.6 cm.There is expected blood flow on Doppler imaging. Free fluid: There is a small amount of free fluid in the cul-de-sac. IMPRESSION: 6 week 2 day single living intrauterine gestation, estimated date of delivery 03/21/18;. interval development of a pole; complex left ovarian cyst and left corpus luteum; small amount of. free fluid in the cul-de-sac, physiologic versus cyst rupture. Thank you for allowing us to participate in the care of your patient. US Gallbladder Other Rad Studies (CT/US): Interpreted By Me, Read By Radiologist CT/US Interpretation: EXAM: US Abdomen Limited, Right Upper Quadrant. EXAM DATE/TIME: 07/28/2017 10:02 PM. CLINICAL HISTORY: 32 years old, female; Pain; Abdominal pain; Generalized; ; Additional info: Ruq pain. TECHNIQUE: Real-time ultrasound of the right upper quadrant with image documentation. COMPARISON: There are no prior studies for comparison. FINDINGS: Liver: No focal lesions are seen in the liver. Liver appears mildly enlarged. There is hepatopedal. flow in the main portal vein. Gallbladder: Gallbladder is distended with no stones, sludge or wall thickening. Common bile duct: Common bile duct measures 5 mm in diameter. Pancreas: Pancreas is partially obscured by bowel gas. Visualized portions is unremarkable. Right kidney: Right kidney is normal in size.There is no pelvocaliectasis.Corticomedullary. differentiation is maintained. There is a 3 x 3 x 7 mm peripheral cyst. Aorta: Visualized portions of the aorta and inferior vena cava are unremarkable. IMPRESSION: No gallstones or ductal dilatation. Patient was not tender over the gallbladder. Medical Decision Making Medical Decision Making: Plan: * blood work * UA * HCG test * Gallbladder US * Transvaginal US * Tylenol Disposition - Disposition Disposition: HOSPITALIZED Disposition Time: 11:00 Condition: STABLE - Clinical Impression Clinical Impression: Hyperemesis gravidarum, Hypokalemia - Scribe Statement The provider has reviewed the documentation as recorded by the Scribe Evelia Price All medical record entries made by the Scribe were at my direction and personally dictated by me. I have reviewed the chart and agree that the record accurately reflects my personal performance of the history, physical exam, medical decision making, and the department course for this patient. I have also personally directed, reviewed, and agree with the discharge instructions and disposition. Decision To Admit - Pt Status Changed To: Hospital Disposition Of: Inpatient - Admit Certification Admit to Inpatient:: After my assessment, the patient will require hospitalization for at least two midnights. This is because of the severity of symptoms shown, intensity of services needed, and/or the medical risk in this patient being treated as an outpatient. - InPatient: Physician Admission Certification:: hyperemesis, hypok, needs ivf and replensishement. - . Bed Request Type: MIDWIFE PRACTITIONER Admitting Physician: Zoya A Bernard Patient Diagnosis: Hyperemesis gravidarum, Hypokalemia
[2017-07-28 22:27] LABS: BASO # 0.1 K/uL (0.0-0.2); BASO % 1.2 % (0.0-2.0); EOS # 0.1 K/uL (0.0-0.7); EOS % 2.8 % (0.0-4.0); HEMOGLOBIN 10.7 g/dL (11.0-16.0); LYMPH # 1.4 K/uL (1.0-4.3); LYMPH % 27.7 % (20.0-40.0); MEAN CELL VOLUME 76.3 fL (81.0-99.0); MEAN CORPUSCULAR HEMOGLOBIN 25.5 pg (27.0-31.0); MEAN CORPUSCULAR HGB CONC 33.5 g/dL (33.0-37.0); MEAN PLATELET VOLUME 9.2 fL (7.2-11.7); MONO # 0.4 K/uL (0.0-0.8); MONO % 8.8 % (0.0-10.0); NEUT % 59.5 % (50.0-75.0); NRBC % 0.1 % (0.0-2.0); RBC 4.18 Mil/uL (3.80-5.20); RED CELL DISTRIBUTION WIDTH 18.5 % (11.5-14.5); WHITE BLOOD COUNT 5.1 K/uL (4.8-10.8)
[2017-07-28 22:30] LABS: SQUAMOUS EPITHIAL 23 /hpf (0-5); URINE BACTERIA FEW (<OCC); URINE BILIRUBIN NEGATIVE (NEGATIVE); URINE BLOOD NEGATIVE (NEGATIVE); URINE CLARITY Hazy (Clear); URINE COLOR Amber (YELLOW); URINE GLUCOSE (UA) NORMAL (Normal); URINE LEUKOCYTE ESTERASE 2+ Leu/uL (Negative); URINE NITRATE NEGATIVE (NEGATIVE); URINE PROTEIN 2+ mg/dL (NEGATIVE)
[2017-07-28 22:32] LABS: INR 1.2; PROTHROMBIN TIME 12.9 SECONDS (9.7-12.2)
[2017-07-28 22:43] LABS: ALB/GLOB RATIO 1.1 (1.0-2.1); ALBUMIN 3.6 g/dL (3.5-5.0); ALT/SGPT 12 U/L (9-52); AST/SGOT 14 U/L (14-36); BILIRUBIN,DIRECT 0.3 mg/dL (0.0-0.4); BLOOD UREA NITROGEN 11 mg/dL (7-17); CALCIUM 9.1 mg/dl (8.6-10.4); GFR AFRICAN-AMERICAN > 60; GFR NON-AFRICAN AMERICAN > 60; LIPASE 104 U/L (23-300)
[2017-07-28] MEDS ORDERED: Potassium Chloride 20 mEq ER Tab PO STA (22:44)
[2017-07-28] MEDS ORDERED: Potassium Chloride 20 mEq ER Tab PO ONE (23:34)
--- NOTE | 2017-07-29 00:04 | US ---
EXAM: US , Transvaginal EXAM DATE/TIME: 07/28/2017 10:02 PM CLINICAL HISTORY: 32 years old, female; Pain; complicated by abdominal or pelvic pain; Lower; First trimester; Gestational age or lmp: 1-5-18; ; Additional info: Abd pain and TECHNIQUE: Real-time transvaginal obstetrical ultrasound of the maternal pelvis and a first trimester with image documentation. Transvaginal imaging was used for better evaluation of the fetus and adnexa. COMPARISON: PELVIS/TRANSVAG US 2017-07-22 02:47 FINDINGS: Gestation: There is a single intrauterine gestation.Gestational sac has mean diameter 17.6 mm.A yolk sac is present, internal diameter measures 2 mm. With pole 5.5 mm. There is embryonic heart rate of 124 beats per minute. Uterus: Uterus measures approximately 9.8 x 5.4 x 6.3 cm. Cervix is closed, 3.6 mm in length. Ovaries: Left ovary measures approximately 4.1 x 2.7 x 3.3 cm. There is a complex cyst. There is a corpus luteum. There is expected blood flow on Doppler imaging right ovary measures approximately 2.8 x 2.1 x 1.6 cm.There is expected blood flow on Doppler imaging. Free fluid: There is a small amount of free fluid in the cul-de-sac. IMPRESSION: 6 week 2 day single living intrauterine gestation, estimated date of delivery 03/21/18; interval development of a pole; complex left ovarian cyst and left corpus luteum; small amount of free fluid in the cul-de-sac, physiologic versus cyst rupture
--- NOTE | 2017-07-29 00:07 | US ---
EXAM: US Abdomen Limited, Right Upper Quadrant EXAM DATE/TIME: 07/28/2017 10:02 PM CLINICAL HISTORY: 32 years old, female; Pain; Abdominal pain; Generalized; ; Additional info: Ruq pain TECHNIQUE: Real-time ultrasound of the right upper quadrant with image documentation. COMPARISON: There are no prior studies for comparison. FINDINGS: Liver: No focal lesions are seen in the liver. Liver appears mildly enlarged. There is hepatopedal flow in the main portal vein. Gallbladder: Gallbladder is distended with no stones, sludge or wall thickening. Common bile duct: Common bile duct measures 5 mm in diameter. Pancreas: Pancreas is partially obscured by bowel gas. Visualized portions is unremarkable. Right kidney: Right kidney is normal in size.There is no pelvocaliectasis.Corticomedullary differentiation is maintained. There is a 3 x 3 x 7 mm peripheral cyst Aorta: Visualized portions of the aorta and inferior vena cava are unremarkable. IMPRESSION: No gallstones or ductal dilatation Patient was not tender over the gallbladder
[2017-07-29] MEDS ORDERED: Potassium Ch 20mEq in D5W 20 ML in Dextrose 5%/0.9% NS 1,000 ML IV ONE (00:53)
[2017-07-29] MEDS ORDERED: Pyridoxine HCl 100 mg/ml Inj IV SCH (01:00)
--- NOTE | 2017-07-29 02:22 | CP.PCM.HP ---
History of Present Illness - History of Present Illness History of Present Illness: 32 y.o. , 6w 2d by susanne 07/28/17 admitted for managemnt of hyperemesis gravidarum. HPI: S/P E.D. visit 07/22 17 c/o upper abdominal pain. Incidental finding of then. Discharged home on p.o. antibiotics for UTI, which she has not been able to complete due to onset of nausea and vomiting soon after that E.D. visit. Patient reports "all day vomiting" prompting visit to [facility]. Denies dizziness, lightheadedness, chest pain, shortness of breath. Upper abdominal pain still present. Patient is also a chronic hypertensive; last took antihypertensives 07/24/17. In E.D. BPs treated with hydralazine push x 2: prior to transfer to , BP 160/103. Denies headaches, blurred vision. Patient is hungry; (+) nausea. Has not vomited since receiving anti- emetics in E.D. P Ob: 2010, C/S, male, 7lb 12oz, NRFHRT; pre-eclampsia - [facility] [place]. 01/2017, ectopic - [facility]. 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 (+)GC, early 20s. Denies abnormal Pap; last one 05/2017 ( Dr. Cevallos). Denies h/o fibroids or ovarian cysts PMH: 2009, pre-eclampsia. early 2016, HTN. PSH: C/S, D&C x 4; ex lap with salpingectomy Meds: Nifedipine ER 60 mg p.o. QD; metoprolol 25 mg p.o. BID; hydralazine 100 mg p.o. BID - last took 07/22/17 NKDA Food allergies: coconut = throat closes Soc Hx: h/o tobacco use: 1 pack per week x 18 years; stopped 2 months ago. Denies illicit drug use. Soc EtOH, prior to . Works for [employer]. Lives with her son. FOB involved; together x 16 years Fam Hx: Mother alive 73 - HTN. Father alive 64 - HTN. No known fam h/o cancer Present on Admission - Present on Admission Any Indicators Present on Admission: No Review of Systems - Review of Systems All systems: reviewed and no additional remarkable complaints except - Gastrointestinal Gastrointestinal: Abdominal Pain Past Patient History - Infectious Disease Hx of Infectious Diseases: None - Past Medical History & Family History Past Medical History?: Yes Pertinent Family History: Mother and Father - both, HTN - Past Social History Smoking Status: Former Smoker Alcohol: Social Drugs: Denies Home Situation {Lives}: With Family Domestic Violence: Negative - CARDIAC Hx Hypertension: Yes (Gestational Hypertension, and chronic) - PULMONARY Hx Respiratory Disorders: No - NEUROLOGICAL Hx Neurological Disorder: No - HEENT Hx HEENT Problems: No - RENAL Hx Chronic Kidney Disease: No - ENDOCRINE/METABOLIC Hx Endocrine Disorders: No - HEMATOLOGICAL/ONCOLOGICAL Hx Blood Disorders: No - INTEGUMENTARY Hx Dermatological Problems: No - MUSCULOSKELETAL/RHEUMATOLOGICAL Hx Musculoskeletal Disorders: No - GASTROINTESTINAL Hx Gastrointestinal Disorders: No - GENITOURINARY/GYNECOLOGICAL Hx Genitourinary Disorders: No - PSYCHIATRIC Hx Psychophysiologic Disorder: No Hx Substance Use: No - SURGICAL HISTORY Hx Surgeries: Yes Hx Section: Yes (x1) Other/Comment: 02/22/17, Exploratory laparotomy with salpingectomy - ANESTHESIA Hx Anesthesia: Yes Hx Anesthesia Reactions: No Meds Allergies/Adverse Reactions: Allergies Allergy/AdvReac Type Severity Reaction Status Date / Time coconuts Allergy Uncoded 07/28/17 21:19 Physical Exam - Constitutional Appears: Well, No Acute Distress - Head Exam Head Exam: NORMAL INSPECTION - ENT Exam ENT Exam: Mucous Membranes Moist - Neck Exam Neck exam: Positive for: Full Rom - Respiratory Exam Respiratory Exam: NORMAL BREATHING PATTERN - Cardiovascular Exam Cardiovascular Exam: REGULAR RHYTHM - GI/Abdominal Exam GI & Abdominal Exam: Normal Bowel Sounds - Extremities Exam Extremities exam: Positive for: full ROM, normal inspection - Neurological Exam Neurological exam: Alert, Oriented x3 - Psychiatric Exam Psychiatric exam: Normal Affect, Normal Mood - Skin Skin Exam: Dry, Intact, Normal Color, Warm Results - Vital Signs Recent Vital Signs: Last Vital Signs Temp 98.9 F 07/28/17 21:11 Pulse 73 07/29/17 01:13 Resp 18 07/29/17 01:13 BP 160/103 H 07/29/17 01:13 Pulse Ox 100 07/29/17 01:13 - Labs Result Diagrams: 07/30/17 20:02 07/31/17 08:18 Labs: Laboratory Results - last 24 hr 07/28/17 07/28/17 07/28/17 22:13 22:13 22:13 WBC 5.1 RBC 4.18 Hgb 10.7 L Hct 31.9 L MCV 76.3 L MCH 25.5 L MCHC 33.5 RDW 18.5 H Plt Count 209 MPV 9.2 Neut % (Auto) 59.5 Lymph % (Auto) 27.7 [place] % (Auto) 8.8 Eos % (Auto) 2.8 Baso % (Auto) 1.2 Neut # 3.0 Lymph # 1.4 Livingston # 0.4 Eos # 0.1 Baso # 0.1 PT INR APTT Sodium 130 L Potassium 2.8 L Chloride 94 L Carbon Dioxide 26 Anion Gap 12 BUN 11 Creatinine 0.9 Est GFR ( Amer) > 60 Est GFR (Non-Af Amer) > 60 Random Glucose 95 Calcium 9.1 Total Bilirubin 0.3 Direct Bilirubin 0.3 AST 14 D ALT 12 Alkaline Phosphatase 68 Total Protein 6.7 Albumin 3.6 Globulin 3.1 Albumin/Globulin Ratio 1.1 Lipase 104 Beta HCG, Quant Urine Color [place] Urine Clarity Hazy Urine pH 5.0 Ur Specific Phyllis 1.031 H Urine Protein 2+ H Urine Glucose (UA) Normal Urine Ketones Trace Urine Blood Negative Urine Nitrate Negative Urine Bilirubin Negative Urine Urobilinogen 4.0 H Ur Leukocyte Esterase 2+ H Urine WBC (Auto) 11 H Urine RBC (Auto) 5 H Ur Squamous Epith Cells 23 H Urine Bacteria Few H Urine HCG, Qual Blood Type Antibody Screen 07/28/17 07/28/17 07/28/17 22:13 22:13 22:18 WBC RBC Hgb Hct MCV MCH MCHC RDW Plt Count MPV Neut % (Auto) Lymph % (Auto) [place] % (Auto) Eos % (Auto) Baso % (Auto) Neut # Lymph # [place] # Eos # Baso # PT 12.9 H INR 1.2 APTT 30 Sodium Potassium Chloride Carbon Dioxide Anion Gap BUN Creatinine Est GFR ( Amer) Est GFR (Non-Af Amer) Random Glucose Calcium Total Bilirubin Direct Bilirubin AST ALT Alkaline Phosphatase Total Protein Albumin Globulin Albumin/Globulin Ratio Lipase Beta HCG, Quant 09305.00 Urine Color Urine Clarity Urine pH Ur Specific Phyllis Urine Protein Urine Glucose (UA) Urine Ketones Urine Blood Urine Nitrate Urine Bilirubin Urine Urobilinogen Ur Leukocyte Esterase Urine WBC (Auto) Urine RBC (Auto) Ur Squamous Epith Cells Urine Bacteria Urine HCG, Qual Positive Blood Type Antibody Screen 07/28/17 22:18 WBC RBC Hgb Hct MCV MCH MCHC RDW Plt Count MPV Neut % (Auto) Lymph % (Auto) Living[place] % (Auto) Eos % (Auto) Baso % (Auto) Neut # Lymph # [place] # Eos # Baso # PT INR APTT Sodium Potassium Chloride Carbon Dioxide Anion Gap BUN Creatinine Est GFR ( Amer) Est GFR (Non-Af Amer) Random Glucose Calcium Total Bilirubin Direct Bilirubin AST ALT Alkaline Phosphatase Total Protein Albumin Globulin Albumin/Globulin Ratio Lipase Beta HCG, Quant Urine Color Urine Clarity Urine pH Ur Specific Phyllis Urine Protein Urine Glucose (UA) Urine Ketones Urine Blood Urine Nitrate Urine Bilirubin Urine Urobilinogen Ur Leukocyte Esterase Urine WBC (Auto) Urine RBC (Auto) Ur Squamous Epith Cells Urine Bacteria Urine HCG, Qual Blood Type A POSITIVE Antibody Screen Negative Assessment & Plan - Assessment and Plan (Free Text) Assessment: Labs and ultrasound report reviewed by me: SIUP, 6w 2d, cardiac activity at 124 bpm; and complex left ovarian cyst and corpus luteal cyst. Sodium 128, potassium 2.8. U/A noted for leuk esterase 3+ 32 y.o. [id number], 6w 2d, hyperemesis gravidarum, chronic HTN - latter apparently poorly controlled primarily due to patient's inability to keep down anything, including her antihypertensive meds, x 6 days. D/W patient, plan for NPO and slow progression of p.o. intake; primary goal = no vomiting so that anti- hypertensives can be administered and work. Second order of business, stop vomiting so that food can be ingested and nutrients absorbed. Patient expressed an understanding and agrees. No questions offered. Patient is clinically sable. Also, need to address partially treated UTI. Plan: Admit NPO except medications IVFs: D5NS with KCL Antiemetics Pyroxidine 50 mg IVP daily Start labetalol 100 mg p.o. BID Protonix Anceg 1 gram IVPB Q8hr x 3 doses, anticiapte switch to P.O. meds after 3rd dose SCD - Date & Time Date: 07/30/17 Time: 02:55
[2017-07-29] MEDS: Potassium Chloride 20 MEQ in Dextrose 5%/0.9% NS 1,000 ML IV ONE ×2 (02:29→11:16)
[2017-07-29 09:10] LABS: BLOOD UREA NITROGEN 8 mg/dL (7-17); CALCIUM 8.9 mg/dl (8.6-10.4); GFR AFRICAN-AMERICAN > 60; GFR NON-AFRICAN AMERICAN > 60
[2017-07-29] MEDS: ceFAZolin IV 1 gm in Dextrose 1 GM/50 ML BAG IVPB SCH ×2 (11:15→19:40)
[2017-07-30] MEDS: Potassium Ch 20mEq in D5-1/2NS 1,000 ML IV SCH ×2 (01:22→07:19)
[2017-07-30] MEDS ORDERED: Pyridoxine HCl 100 mg/ml Inj IV SCH (02:30)
[2017-07-30] MEDS ORDERED: ceFAZolin IV 1 gm in Dextrose 1 GM/50 ML BAG IVPB ONE (03:30)
--- NOTE | 2017-07-30 08:39 | CP.PCM.PN ---
Subjective - Date & Time of Evaluation Date of Evaluation: 07/29/17 Time of Evaluation: 09:30 - Subjective Subjective: 32yo female with an early and admitted for hyperemesis and elevated BPs. She reports this morning that the nausea and vomiting had been reduced. She however feels weak. Potassium levels improves to 3.4. On antibiotics for UTI. Pt has been having elevated temperatures and would therefore continue with IV antibiotics. Objective - Vital Signs/Intake and Output Vital Signs (last 24 hours): Temp Pulse Resp BP Pulse Ox 100.1 F H 81 18 148/93 H 100 07/30/17 08:12 07/30/17 08:12 07/30/17 08:12 07/30/17 08:12 07/29/17 16:00 - Medications Medications: Current Medications Acetaminophen (Tylenol 325mg Tab) 650 mg PO Q6 PRN PRN Reason: fever Last Admin: 07/30/17 07:13 Dose: 650 mg Potassium Chloride/Dextrose/Sod Cl (Potassium Chl 20 Meq In D5-1/2ns) 1,000 mls @ 125 mls/hr IV .Q8H [facility] Last Admin: 07/30/17 07:19 Dose: 125 mls/hr Labetalol HCl (Trandate) 100 mg PO BID [facility] Last Admin: 07/29/17 18:09 Dose: 100 mg Metoclopramide HCl (Reglan) 10 mg IVP Q6H [facility] Last Admin: 07/30/17 07:22 Dose: Not Given Ondansetron HCl (Zofran Inj) 4 mg IVP Q8H PRN PRN Reason: Nausea/Vomiting Pantoprazole Sodium (Protonix Inj) 40 mg IVP Q12H [facility] Last Admin: 07/30/17 02:42 Dose: 40 mg Pyridoxine HCl (Pyridoxine Hcl) 50 mg IV Q24H [facility] Last Admin: 07/30/17 02:34 Dose: 50 mg - Labs Labs: 07/28/17 22:13 07/29/17 08:37 PT 12.9 SECONDS (9.7-12.2) H 07/28/17 22:18 INR 1.2 07/28/17 22:18 APTT 30 SECONDS (21-34) 07/28/17 22:18 - Constitutional Appears: No Acute Distress - Eye Exam Eye Exam: Normal appearance - ENT Exam ENT Exam: Mucous Membranes Moist - Respiratory Exam Respiratory Exam: Clear to Ausculation Bilateral - Cardiovascular Exam Cardiovascular Exam: REGULAR RHYTHM, RRR - GI/Abdominal Exam GI & Abdominal Exam: Normal Bowel Sounds - Exam External exam: NORMAL EXTERNAL EXAM - Extremities Exam Extremities Exam: Normal Inspection - Neurological Exam Neurological Exam: Oriented x3 Assessment and Plan (1) Hypertension Status: Acute (2) Nausea Status: Acute (3) UTI (urinary tract infection) during Status: Acute - Assessment and Plan (Free Text) Plan: -Continue with antibiotics -Advance to regular diet Encourage ambulation.
--- NOTE | 2017-07-30 09:31 | CP.PCM.PN ---
Subjective - Date & Time of Evaluation Date of Evaluation: 07/30/17 Time of Evaluation: 09:26 - Subjective Subjective: Admitted with early , hypertension and urinary tract infection. Pt reports that the vomiting has stopped and is tolerating po. Pt has been having elevated temps a day ago. She reports feeling better this morning and has been getting out of bed. CBC, BMP and switch to oral meds would be done today whilst monitoring patient. Once she is stabilized on Po meds patient would be re evaluated. Objective - Vital Signs/Intake and Output Vital Signs (last 24 hours): Temp Pulse Resp BP Pulse Ox 100.1 F H 81 18 148/93 H 100 07/30/17 08:12 07/30/17 08:12 07/30/17 08:12 07/30/17 08:12 07/30/17 08:00 - Medications Medications: Current Medications Acetaminophen (Tylenol 325mg Tab) 650 mg PO Q6 PRN PRN Reason: fever Last Admin: 07/30/17 07:13 Dose: 650 mg Labetalol HCl (Trandate) 100 mg PO BID [facility] Last Admin: 07/29/17 18:09 Dose: 100 mg Nitrofurantoin Macrocrystals (Macrobid) 100 mg PO Q12H [facility] Stop: 08/06/17 09:31 Pantoprazole Sodium (Protonix Inj) 40 mg IVP Q12H [facility] Last Admin: 07/30/17 02:42 Dose: 40 mg Pyridoxine HCl (Pyridoxine Hcl) 50 mg IV Q24H [facility] Last Admin: 07/30/17 02:34 Dose: 50 mg Pyridoxine HCl (Vitamin B6 50 Mg Tab) 50 mg PO DAILY [facility] - Labs Labs: 07/28/17 22:13 07/29/17 08:37 PT 12.9 SECONDS (9.7-12.2) H 07/28/17 22:18 INR 1.2 07/28/17 22:18 APTT 30 SECONDS (21-34) 07/28/17 22:18 - Constitutional Appears: Well - Eye Exam Eye Exam: Normal appearance - Respiratory Exam Respiratory Exam: Clear to Ausculation Bilateral, NORMAL BREATHING PATTERN - Cardiovascular Exam Cardiovascular Exam: REGULAR RHYTHM, RRR - GI/Abdominal Exam GI & Abdominal Exam: Normal Bowel Sounds - Exam External exam: NORMAL EXTERNAL EXAM - Extremities Exam Extremities Exam: Full ROM - Neurological Exam Neurological Exam: CN II-XII Intact - Psychiatric Exam Psychiatric exam: Normal Mood Assessment and Plan (1) Hypertension Status: Acute (2) Nausea Status: Acute (3) UTI (urinary tract infection) during Status: Acute - Assessment and Plan (Free Text) Plan: Stop IV Fluids Advance to regular diet Stop IV meds, switch to orl meds Encourage ambulation. CBC, BMP, Macrobid 100mg po BID Re evaluate.
[2017-07-30] MEDS: Pantoprazole 20 mg EC Tab PO SCH (10:18)
[2017-07-30 11:20] LABS: EOS % 0.5 % (0.0-4.0); MONO # 0.5 K/uL (0.0-0.8); NEUT # 1.1 K/uL (1.8-7.0)
[2017-07-30 11:38] LABS: BASO % 1.7 % (0.0-2.0); LYMPH # 0.5 K/uL (1.0-4.3); LYMPH % 21.9 % (20.0-40.0); MEAN CELL VOLUME 78.2 fL (81.0-99.0); MEAN CORPUSCULAR HEMOGLOBIN 25.3 pg (27.0-31.0); MEAN CORPUSCULAR HGB CONC 32.4 g/dL (33.0-37.0); MONO % 22.7 % (0.0-10.0); NEUT % 53.2 % (50.0-75.0); RBC 3.42 Mil/uL (3.80-5.20)
[2017-07-30 11:40] LABS: HEMOGLOBIN 8.7 g/dL (11.0-16.0); PLATELET COUNT 127 K/uL (130-400); WHITE BLOOD COUNT 2.1 K/uL (4.8-10.8)
[2017-07-30 11:42] LABS: ALBUMIN 2.7 g/dL (3.5-5.0); ALT/SGPT 17 U/L (9-52); AST/SGOT 11 U/L (14-36); BLOOD UREA NITROGEN 4 mg/dL (7-17); CALCIUM 8.4 mg/dl (8.6-10.4); GFR AFRICAN-AMERICAN > 60; GFR NON-AFRICAN AMERICAN > 60
[2017-07-30 12:03] LABS: BANDS 1 % (0-2); BASOPHIL 2 % (0-2); LYMPHOCYTE 20 % (20-40); MONOCYTE 19 % (0-10); NEUTROPHIL 58 % (50-75); PLATELET ESTIMATE SLIGHTLY DECREASED (NORMAL); TOTAL CELLS COUNTED 100
[2017-07-30 12:04] LABS: ANISOCYTOSIS MODERATE; HYPOCHROMIC SLIGHT; LARGE PLATELETS PRESENT; MICROCYTOSIS SLIGHT; POIKILOCYTOSIS SLIGHT
[2017-07-30 12:07] LABS: BURR CELLS SLIGHT
[2017-07-30 12:08] LABS: OVALOCYTES SLIGHT
[2017-07-30 12:09] LABS: SCHISTOCYTES SLIGHT
[2017-07-30 12:10] LABS: GIANT PLATELETS PRESENT
--- NOTE | 2017-07-30 20:08 | CP.PCM.CON ---
<Nicki Frank E - Last Filed: 07/30/17 23:28> History of Present Illness - History of Present Illness History of Present Illness: Medicine Consult HPI: Patient is a 32 year old , 6weeks 3day by sonogram 07/28/17, who initially presents to the ED on 07/29/17 with complaints of abdominal pain and hyperemesis. Patient admitted to continuos vomiting that has been going for awhile, therefore she has been non-complaint with her hypertensive medications. Medicine consultation was placed for chronic HTN in . During the encounter, patient denies headache, visual disturbances, nausea, vomiting, chest pain, palpitations, SOB or vaginal bleeding. Patient does admit to very mild abdominal pressure. PMD: [facility] PMHx: HTN PSHx: (2009), D&C x4; ex-lap with salpingectomy (due to ectopic 5 months ago) FHx: Mother, alive, age 73, HTN. Father, age 64, alive, HTN Allergies: Coconut: cough and upper airway spasm Medications: Hydralazine 100mg PO BID, Nifidepine ER 60mg PO daily, Metoprolol Tartrate 25mg PO BID OB Hx: G1, G2, G3: Elective G4: 2009, male , 7 lbs 12 oz, due to pre-eclampsia[place] 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 absent: Cramping, Diarrhea, Hematemesis, Nausea, Vomiting - Genitourinary Genitourinary: absent: Dysuria - Neurological Neurological: absent: Headaches, Paresthesias, Weakness - Endocrine Endocrine: Fatigue. absent: Palpitations Past Patient History - Infectious Disease Hx of Infectious Diseases: None - Past Medical History & Family History Past Medical History?: Yes - Past Social History Smoking Status: Former Smoker Alcohol: Social Drugs: Denies Home Situation {Lives}: With Family Domestic Violence: Negative - CARDIAC Hx Hypertension: Yes (Gestational Hypertension, and chronic) - PULMONARY Hx Respiratory Disorders: No - NEUROLOGICAL Hx Neurological Disorder: No - HEENT Hx HEENT Problems: No - RENAL Hx Chronic Kidney Disease: No - ENDOCRINE/METABOLIC Hx Endocrine Disorders: No - HEMATOLOGICAL/ONCOLOGICAL Hx Blood Disorders: No - INTEGUMENTARY Hx Dermatological Problems: No - MUSCULOSKELETAL/RHEUMATOLOGICAL Hx Musculoskeletal Disorders: No - GASTROINTESTINAL Hx Gastrointestinal Disorders: No - GENITOURINARY/GYNECOLOGICAL Hx Genitourinary Disorders: No - PSYCHIATRIC Hx Psychophysiologic Disorder: No Hx Substance Use: No - SURGICAL HISTORY Hx Surgeries: Yes Hx Section: Yes (x1) Other/Comment: 02/22/17, Exploratory laparotomy with salpingectomy - ANESTHESIA Hx Anesthesia: Yes Hx Anesthesia Reactions: No Meds Allergies/Adverse Reactions: Allergies Allergy/AdvReac Type Severity Reaction Status Date / Time coconuts Allergy Uncoded 07/28/17 21:19 - Medications Medications: Current Medications Acetaminophen (Tylenol 325mg Tab) 650 mg PO Q6 PRN PRN Reason: fever Last Admin: 07/30/17 17:19 Dose: 650 mg Docusate Sodium (Colace) 100 mg PO BID [facility] Labetalol HCl (Trandate) 100 mg PO Q8 [facility] Last Admin: 07/30/17 14:07 Dose: 100 mg Nitrofurantoin Macrocrystals (Macrobid) 100 mg PO Q12H [facility] Stop: 08/06/17 10:31 Last Admin: 07/30/17 10:22 Dose: Not Given Pantoprazole Sodium (Protonix Ec Tab) 20 mg PO DAILY [facility] Last Admin: 07/30/17 10:18 Dose: 20 mg Pyridoxine HCl (Vitamin B6 50 Mg Tab) 50 mg PO DAILY [facility] Last Admin: 07/30/17 10:18 Dose: 50 mg Physical Exam - Constitutional Appears: No Acute Distress - Head Exam Head Exam: ATRAUMATIC, NORMAL INSPECTION - Eye Exam Eye Exam: EOMI, Normal appearance - Respiratory Exam Respiratory Exam: Clear to Auscultation Bilateral, NORMAL BREATHING PATTERN - Cardiovascular Exam Cardiovascular Exam: Diastolic murmur, REGULAR RHYTHM, +S1, +S2 - GI/Abdominal Exam GI & Abdominal Exam: Normal Bowel Sounds, Soft. absent: Distended, Guarding, Tenderness - Extremities Exam Extremities exam: Positive for: normal inspection. Negative for: joint swelling , pedal edema - Neurological Exam Neurological exam: Alert, Normal Gait, Oriented x3 - Psychiatric Exam Psychiatric exam: Normal Affect, Normal Mood - Skin Skin Exam: Normal Color Results - Vital Signs Recent Vital Signs: Last Vital Signs Temp 99 F 07/30/17 16:00 Pulse 82 07/30/17 16:00 Resp 20 07/30/17 16:00 BP 170/108 H 07/30/17 16:00 Pulse Ox 100 07/30/17 16:00 - Labs Result Diagrams: 07/30/17 20:02 07/30/17 20:02 Labs: Laboratory Results - last 24 hr 07/30/17 07/30/17 11:10 11:10 WBC 2.1 L D RBC 3.42 L Hgb 8.7 L D Hct 26.8 L MCV 78.2 L MCH 25.3 L MCHC 32.4 L RDW 19.0 H Plt Count 127 L D MPV 10.0 Neut % (Auto) 53.2 Lymph % (Auto) 21.9 [place] % (Auto) 22.7 H Eos % (Auto) 0.5 Baso % (Auto) 1.7 Neut # 1.1 L Lymph # 0.5 L [place] # 0.5 Eos # 0.0 Baso # 0.0 Neutrophils % (Manual) 58 Band Neutrophils % 1 Lymphocytes % (Manual) 20 Monocytes % (Manual) 19 H Basophils % (Manual) 2 Platelet Estimate Slightly decreased L Large Platelets Present Giant Platelets Present Hypochromasia (manual) Slight Poikilocytosis (manual Slight Anisocytosis (manual) Moderate Microcytosis (manual) Slight Ovalocytes Slight [place] Cells Slight Schistocytes Slight Sodium 126 L Potassium 3.8 Chloride 100 Carbon Dioxide 23 Anion Gap 7 L BUN 4 L Creatinine 0.8 Est GFR ( Amer) > 60 Est GFR (Non-Af Amer) > 60 Random Glucose 87 Calcium 8.4 L Total Bilirubin < 0.1 L AST 11 L D ALT 17 Alkaline Phosphatase 45 Total Protein 5.4 L Albumin 2.7 L D Globulin 2.7 Albumin/Globulin Ratio 1.0 Assessment & Plan (1) Chronic hypertension during Assessment and Plan: Inpatient medications: * Tranduate 100mg PO Q8H---> Switched to 200mg PO BID ( Starting 07/31/17) * Nifedipine ER 60mg PO daily ( Starting 07/31/17) Continue to monitor BP Work up: * f/u Renal US * f/u Renal duplex scan * f/u random urine protein and creatinine * f/u plasma aldosterone and renin Status: Acute (2) Urinary tract infection Assessment and Plan: Inpatient medication: * Macrobid 100mg PO Q12H UA (07/28/17): * Nitrate: negative * LE: 2+ * Bacteria: Few Status: Acute (3) Hyperemesis arising during Assessment and Plan: Resolved Status: Acute (4) Hx of aortic valve insufficiency Assessment and Plan: Echo (02/23/17): Ejection fraction: 60% Moderate concentric LVH, Left atrium mildly dilated, mild to moderate aortic regurgitation Status: Acute (5) History of hypertension Assessment and Plan: Home medications: * Hydralazine 100mg PO BID * Nifidepine ER 60mg PO daily * Metoprolol Tartrate 25mg PO BID Plans discussed with attending, Dr. Joshi Status: Acute <Edilson Joshi P - Last Filed: 07/31/17 06:26> Meds - Medications Medications: Current Medications Acetaminophen (Tylenol 325mg Tab) 650 mg PO Q6 PRN PRN Reason: fever Last Admin: 07/30/17 17:19 Dose: 650 mg Docusate Sodium (Colace) 100 mg PO BID [facility] Last Admin: 07/30/17 20:19 Dose: 100 mg Labetalol HCl (Trandate) 200 mg PO BID [facility] Nifedipine (Procardia Xl) 60 mg PO DAILY [facility] Nitrofurantoin Macrocrystals (Macrobid) 100 mg PO Q12H [facility] Stop: 08/06/17 10:31 Last Admin: 07/30/17 22:45 Dose: 100 mg Pantoprazole Sodium (Protonix Ec Tab) 20 mg PO DAILY [facility] Last Admin: 07/30/17 10:18 Dose: 20 mg Pyridoxine HCl (Vitamin B6 50 Mg Tab) 50 mg PO DAILY [facility] Last Admin: 07/30/17 10:18 Dose: 50 mg Results - Vital Signs Recent Vital Signs: Last Vital Signs Temp 99 F 07/30/17 16:00 Pulse 82 07/30/17 16:00 Resp 20 07/30/17 16:00 BP 170/108 H 07/30/17 16:00 Pulse Ox 100 07/30/17 16:00 - Labs Result Diagrams: 07/30/17 20:02 07/30/17 20:02 Labs: Laboratory Results - last 24 hr 07/30/17 07/30/17 07/30/17 11:10 11:10 20:02 WBC 2.1 L D 2.6 L RBC 3.42 L 3.58 L Hgb 8.7 L D 8.9 L Hct 26.8 L 27.9 L MCV 78.2 L 77.9 L MCH 25.3 L 24.9 L MCHC 32.4 L 32.0 L RDW 19.0 H 19.1 H Plt Count 127 L D 149 MPV 10.0 10.0 Neut % (Auto) 53.2 64.8 Lymph % (Auto) 21.9 17.7 L [place] % (Auto) 22.7 H 15.2 H Eos % (Auto) 0.5 0.4 Baso % (Auto) 1.7 1.9 Neut # 1.1 L 1.7 L Lymph # 0.5 L 0.5 L [place] # 0.5 0.4 Eos # 0.0 0.0 Baso # 0.0 0.0 Neutrophils % (Manual) 58 Band Neutrophils % 1 Lymphocytes % (Manual) 20 Monocytes % (Manual) 19 H Basophils % (Manual) 2 Platelet Estimate Slightly decreased L Large Platelets Present Giant Platelets Present Hypochromasia (manual) Slight Poikilocytosis (manual Slight Anisocytosis (manual) Moderate Microcytosis (manual) Slight Ovalocytes Slight [place] Cells Slight Schistocytes Slight Sodium 126 L Potassium 3.8 Chloride 100 Carbon Dioxide 23 Anion Gap 7 L BUN 4 L Creatinine 0.8 Est GFR ( Amer) > 60 Est GFR (Non-Af Amer) > 60 Random Glucose 87 Calcium 8.4 L Total Bilirubin < 0.1 L AST 11 L D ALT 17 Alkaline Phosphatase 45 Total Protein 5.4 L Albumin 2.7 L D Globulin 2.7 Albumin/Globulin Ratio 1.0 Urine Color Urine Clarity Urine pH Ur Specific [place] Urine Protein Urine Glucose (UA) Urine Ketones Urine Blood Urine Nitrate Urine Bilirubin Urine Urobilinogen Ur Leukocyte Esterase Urine WBC (Auto) Ur Squamous Epith Cells Urine Bacteria Ur Random Creatinine 07/30/17 07/31/17 07/31/17 20:02 00:17 00:17 WBC RBC Hgb Hct MCV MCH MCHC RDW Plt Count MPV Neut % (Auto) Lymph % (Auto) [place] % (Auto) Eos % (Auto) Baso % (Auto) Neut # Lymph # [place] # Eos # Baso # Neutrophils % (Manual) Band Neutrophils % Lymphocytes % (Manual) Monocytes % (Manual) Basophils % (Manual) Platelet Estimate Large Platelets Giant Platelets Hypochromasia (manual) Poikilocytosis (manual Anisocytosis (manual) Microcytosis (manual) Ovalocytes [place]e Cells Schistocytes Sodium 127 L Potassium 3.6 Chloride 100 Carbon Dioxide 20 L Anion Gap 11 BUN 5 L Creatinine 0.8 Est GFR ( Amer) > 60 Est GFR (Non-Af Amer) > 60 Random Glucose 80 Calcium 8.4 L Total Bilirubin AST ALT Alkaline Phosphatase Total Protein Albumin Globulin Albumin/Globulin Ratio Urine Color Straw Urine Clarity Hazy Urine pH 6.0 Ur Specific [place] 1.002 L Urine Protein Negative Urine Glucose (UA) Normal Urine Ketones Negative Urine Blood Negative Urine Nitrate Negative Urine Bilirubin Negative Urine Urobilinogen Normal Ur Leukocyte Esterase 2+ H Urine WBC (Auto) 3 Ur Squamous Epith Cells 1 Urine Bacteria Rare Ur Random Creatinine 18.3 Attending/Attestation - Attestation I have personally seen and examined this patient.: Yes I have fully participated in the care of the patient.: Yes I have reviewed all pertinent clinical information: Yes Notes (Text): Assessment * HTN at young age needing 3 meds would need assessment for secondary htn, as adjusting meds effect expected in few days rather everyday * Microcytic anemia will check Iron levels likely from chronic menstrual loss will need early and more iron replacement * LVH and AR on the 2017 echo, lvh could be form AR vs htn or both, patient would be high risk should be monitored in the more frequently * Proteinuria Plan * W/u renal usg, renal art doppler, aldosterone/renin ratio, random prot/creat ration, urinalysis * Iron studies * Since bp during preg is dynamic, control will be more frequent monitoring with goals of sbp < 140, dbp<90 but over period of wks, more acute changes will be symptomatic Labetalol changed to 200mg bid max dose could be 2400/day, adjusted not more than 200mg increase/day, added nifedinpne 60mg, daily, control and adjustment doesn't need to inpatient. * f/u echo * See orders for detail.
[2017-07-30 20:15] LABS: BASO % 1.9 % (0.0-2.0); EOS % 0.4 % (0.0-4.0); HEMOGLOBIN 8.9 g/dL (11.0-16.0); LYMPH # 0.5 K/uL (1.0-4.3); LYMPH % 17.7 % (20.0-40.0); MEAN CELL VOLUME 77.9 fL (81.0-99.0); MEAN CORPUSCULAR HEMOGLOBIN 24.9 pg (27.0-31.0); MONO # 0.4 K/uL (0.0-0.8); MONO % 15.2 % (0.0-10.0); NEUT # 1.7 K/uL (1.8-7.0); NEUT % 64.8 % (50.0-75.0); NRBC % 0.1 % (0.0-2.0); RBC 3.58 Mil/uL (3.80-5.20); RED CELL DISTRIBUTION WIDTH 19.1 % (11.5-14.5); WHITE BLOOD COUNT 2.6 K/uL (4.8-10.8)
[2017-07-30 20:22] LABS: BLOOD UREA NITROGEN 5 mg/dL (7-17); CALCIUM 8.4 mg/dl (8.6-10.4); GFR AFRICAN-AMERICAN > 60; GFR NON-AFRICAN AMERICAN > 60
[2017-07-31 00:27] LABS: SQUAMOUS EPITHIAL 1 /hpf (0-5); URINE BACTERIA RARE (<OCC); URINE BILIRUBIN NEGATIVE (NEGATIVE); URINE BLOOD NEGATIVE (NEGATIVE); URINE CLARITY Hazy (Clear); URINE COLOR Straw (YELLOW); URINE GLUCOSE (UA) NORMAL (Normal); URINE LEUKOCYTE ESTERASE 2+ Leu/uL (Negative); URINE NITRATE NEGATIVE (NEGATIVE); URINE PROTEIN NEGATIVE (NEGATIVE); URINE UROBILINOGEN NORMAL mg/dL (0.2-1.0)
[2017-07-31 08:57] LABS: IRON 12 ug/dL (37-170)
[2017-07-31 09:05] LABS: BLOOD UREA NITROGEN 5 mg/dL (7-17); CALCIUM 8.4 mg/dl (8.6-10.4); GFR AFRICAN-AMERICAN > 60; GFR NON-AFRICAN AMERICAN > 60
[2017-07-31 09:06] LABS: % IRON SATURATION 4 (20-55); TOTAL IRON BINDING CAPACITY 336 ug/dL (250-450)
[2017-07-31] MEDS: NIFEdipine 60 mg ER Tab PO SCH (09:07)
[2017-07-31] MEDS: Pantoprazole 20 mg EC Tab PO SCH (09:08)
--- NOTE | 2017-07-31 09:10 | CP.PCM.PN ---
<AntionetteAnabella L. - Last Filed: 07/31/17 09:47> Subjective - Date & Time of Evaluation Date of Evaluation: 07/31/17 Time of Evaluation: 07:00 - Subjective Subjective: PGY1 Progress Note Patient seen and examined at bedside in no acute distress. Patient has not had any more episodes of vomiting since her admission, and is able to tolerate food. Patient is having some cough today with sputum and denies fevers or chills. Patient denies lethargy, headache, nausea, vomiting, abdominal pain, constipation or diarrhea. Objective - Vital Signs/Intake and Output Vital Signs (last 24 hours): Temp Pulse Resp BP Pulse Ox 99 F 82 20 170/108 H 100 07/30/17 16:00 07/30/17 16:00 07/30/17 16:00 07/30/17 16:00 07/31/17 08:40 - Medications Medications: Current Medications Acetaminophen (Tylenol 325mg Tab) 650 mg PO Q6 PRN PRN Reason: fever Last Admin: 07/30/17 17:19 Dose: 650 mg Docusate Sodium (Colace) 100 mg PO BID [facility] Last Admin: 07/30/17 20:19 Dose: 100 mg Guaifenesin/Dextromethorphan (Robitussin Dm) 10 ml PO Q4H PRN PRN Reason: Cough and congestion Labetalol HCl (Trandate) 200 mg PO BID [facility] Nifedipine (Procardia Xl) 60 mg PO DAILY [facility] Nitrofurantoin Macrocrystals (Macrobid) 100 mg PO Q12H [facility] Stop: 08/06/17 10:31 Last Admin: 07/30/17 22:45 Dose: 100 mg Pantoprazole Sodium (Protonix Ec Tab) 20 mg PO DAILY [facility] Last Admin: 07/30/17 10:18 Dose: 20 mg Pyridoxine HCl (Vitamin B6 50 Mg Tab) 50 mg PO DAILY [facility] Last Admin: 07/30/17 10:18 Dose: 50 mg - Labs Labs: 07/30/17 20:02 07/31/17 08:18 PT 12.9 SECONDS (9.7-12.2) H 07/28/17 22:18 INR 1.2 07/28/17 22:18 APTT 30 SECONDS (21-34) 07/28/17 22:18 - Constitutional Appears: Non-toxic, No Acute Distress - Head Exam Head Exam: ATRAUMATIC, NORMAL INSPECTION, NORMOCEPHALIC - Eye Exam Eye Exam: EOMI, Normal appearance - ENT Exam ENT Exam: Mucous Membranes Moist - Respiratory Exam Respiratory Exam: Clear to Ausculation Bilateral, NORMAL BREATHING PATTERN - Cardiovascular Exam Cardiovascular Exam: REGULAR RHYTHM, RRR, +S1, +S2 - GI/Abdominal Exam GI & Abdominal Exam: Soft, Normal Bowel Sounds. absent: Tenderness - Extremities Exam Extremities Exam: Normal Inspection. absent: Pedal Edema - Neurological Exam Neurological Exam: Alert, Awake, Oriented x3 - Psychiatric Exam Psychiatric exam: Normal Affect, Normal Mood - Skin Skin Exam: Intact, Normal Color, Warm Assessment and Plan - Assessment and Plan (Free Text) Assessment: 32 year old , 6weeks 4day by sonogram 07/28/17, with hyperemesis gravidarum and chronic hypertension Hyperemesis gravidarum -patient's N/V resolved -continue slow progression of PO intake -Vit B6 50mg po daily HTN -Labetalol 200 mg po BID -Nifedipine 60 mg po daily (started today) -Medicine consulted, follow recommendations -f/u Aldosterone, Plasma Renin -f/u Renal artery duplex Anemia -H/H: 8.9/27.9 -Iron: 12, TIBC: 336 %Sat: 4, Transferrin: 255.77, Ferritin 8 -Feosol 325mg po BID (started on 07/31) - vitamin 1 tab po daily -Continue to monitor UTI -Macrobid 100mg po q12h Cough -Robitussin DM Prophylaxis -Protonix 20 mg po daily -Colace 100mg po BID <Zoya Wagner A - Last Filed: 07/31/17 17:53> Objective - Vital Signs/Intake and Output Vital Signs (last 24 hours): Temp Pulse Resp BP Pulse Ox 97.0 F L 72 18 177/111 H 100 07/31/17 16:07 07/31/17 16:07 07/31/17 16:07 07/31/17 16:07 07/31/17 16:07 - Medications Medications: Current Medications Acetaminophen (Tylenol 325mg Tab) 650 mg PO Q6 PRN PRN Reason: fever Last Admin: 07/30/17 17:19 Dose: 650 mg Docusate Sodium (Colace) 100 mg PO BID [facility] Last Admin: 07/31/17 17:29 Dose: 100 mg Ferrous Sulfate (Feosol) 325 mg PO BID [facility] Last Admin: 07/31/17 17:29 Dose: 325 mg Guaifenesin/Dextromethorphan (Robitussin Dm) 10 ml PO Q4H PRN PRN Reason: Cough and congestion Last Admin: 07/31/17 09:13 Dose: 10 ml Labetalol HCl (Trandate) 400 mg PO BID [facility] Last Admin: 07/31/17 17:29 Dose: 400 mg Nifedipine (Procardia Xl) 60 mg PO DAILY [facility] Last Admin: 07/31/17 09:07 Dose: 60 mg Nitrofurantoin Macrocrystals (Macrobid) 100 mg PO Q12H [facility] Stop: 08/06/17 10:31 Last Admin: 07/31/17 16:14 Dose: 100 mg Pantoprazole Sodium (Protonix Ec Tab) 20 mg PO DAILY [facility] Last Admin: 07/31/17 09:08 Dose: 20 mg Multivit/Folic Acid/Iron () 1 tab PO DAILY [facility] Last Admin: 07/31/17 17:29 Dose: 1 tab Pyridoxine HCl (Vitamin B6 50 Mg Tab) 50 mg PO DAILY [facility] Last Admin: 07/31/17 09:16 Dose: 50 mg - Labs Labs: 07/30/17 20:02 07/31/17 08:18 PT 12.9 SECONDS (9.7-12.2) H 07/28/17 22:18 INR 1.2 07/28/17 22:18 APTT 30 SECONDS (21-34) 07/28/17 22:18 Attending/Attestation - Attestation I have personally seen and examined this patient.: Yes I have fully participated in the care of the patient.: Yes I have reviewed all pertinent clinical information, including history, physical exam and plan: Yes Notes (Text): 07/31/17 17:41 Patient seen and evaluated by me with the Resident earlier today and now. I agree with the above as recorded. Patient seen ambulating in the hallway in good spirits. Has no complaints of headache, visual changes, shortness of breath, fatigue, palpitations. Summarry of assessment/plan 1) Hyperemesis gravidarum - resolved. 2) Chronic HTN: Medicine's input much appreciated. Most recent BP 177/111 at 1600 hours. Labetalol has been increased to 400 mg p.o. BID - STAT dose given at 1730 hours; monitor BP in approx 2 hours. Patient also on nifedipine 60 mg QD. If BP remains >= 160/95-100, consider adding a third agent. Imaging studies : a) renal ultrasound = small renal cyst - nothing to do; follow up as outpatient; b) renal artery duplex - no evidence of renal artery stenosis. All has been discussed with Dr. Reyes. 3) Anemia - on iron BID 4) Patient currently clinically stable. Will discharge home when BP better controlled, on the recommendation of Medicine.
[2017-07-31] MEDS: guaiFENesin DM 200 mg-20 mg/10 ml UD PO PRN ×2 (09:13→20:17)
[2017-07-31] MEDS: Prenatal Multivit/Folic Acid/Iron Tab PO SCH ×2 (10:00→17:29)
--- NOTE | 2017-07-31 14:21 | CP.PCM.PN ---
<Benson Baez - Last Filed: 07/31/17 21:13> Subjective - Date & Time of Evaluation Date of Evaluation: 07/31/17 Time of Evaluation: 09:00 - Subjective Subjective: Medicine progress note for Dr. Reyes Patient seen and examined. Patient reports no acute complaints at this time. Patient denies changes in vision, headache, chest pain, dyspnea, abdominal pain , dysuria. Objective - Vital Signs/Intake and Output Vital Signs (last 24 hours): Temp Pulse Resp BP Pulse Ox 98.6 F 77 18 178/103 H 100 07/31/17 08:00 07/31/17 08:00 07/31/17 08:00 07/31/17 08:00 07/31/17 08:40 - Medications Medications: Current Medications Acetaminophen (Tylenol 325mg Tab) 650 mg PO Q6 PRN PRN Reason: fever Last Admin: 07/30/17 17:19 Dose: 650 mg Docusate Sodium (Colace) 100 mg PO BID [facility] Last Admin: 07/31/17 09:08 Dose: 100 mg Ferrous Sulfate (Feosol) 325 mg PO BID [facility] Last Admin: 07/31/17 10:00 Dose: Not Given Guaifenesin/Dextromethorphan (Robitussin Dm) 10 ml PO Q4H PRN PRN Reason: Cough and congestion Last Admin: 07/31/17 09:13 Dose: 10 ml Labetalol HCl (Trandate) 200 mg PO BID [facility] Last Admin: 07/31/17 09:13 Dose: 200 mg Nifedipine (Procardia Xl) 60 mg PO DAILY [facility] Last Admin: 07/31/17 09:07 Dose: 60 mg Nitrofurantoin Macrocrystals (Macrobid) 100 mg PO Q12H [facility] Stop: 08/06/17 10:31 Last Admin: 07/31/17 10:30 Dose: Not Given Pantoprazole Sodium (Protonix Ec Tab) 20 mg PO DAILY [facility] Last Admin: 07/31/17 09:08 Dose: 20 mg Multivit/Folic Acid/Iron () 1 tab PO DAILY [facility] Pyridoxine HCl (Vitamin B6 50 Mg Tab) 50 mg PO DAILY [facility] Last Admin: 07/31/17 09:16 Dose: 50 mg - Labs Labs: 07/30/17 20:02 07/31/17 08:18 PT 12.9 SECONDS (9.7-12.2) H 07/28/17 22:18 INR 1.2 07/28/17 22:18 APTT 30 SECONDS (21-34) 07/28/17 22:18 - Constitutional Appears: No Acute Distress - Head Exam Head Exam: ATRAUMATIC, NORMOCEPHALIC - Eye Exam Eye Exam: EOMI, Normal appearance - ENT Exam ENT Exam: Mucous Membranes Moist - Respiratory Exam Respiratory Exam: Clear to Ausculation Bilateral, NORMAL BREATHING PATTERN. absent: Rales, Rhonchi, Wheezes - Cardiovascular Exam Cardiovascular Exam: REGULAR RHYTHM, +S1, +S2 - GI/Abdominal Exam GI & Abdominal Exam: Soft, Normal Bowel Sounds. absent: Guarding, Tenderness - Extremities Exam Extremities Exam: absent: Pedal Edema, Tenderness - Neurological Exam Neurological Exam: Alert, Awake, Oriented x3 - Psychiatric Exam Psychiatric exam: Normal Affect, Normal Mood - Skin Skin Exam: Dry, Intact, Normal Color, Warm Assessment and Plan - Assessment and Plan (Free Text) Plan: Chronic hypertension during Labetolol 200mg PO BID increased to 400 mg PO BID this evening Nifedipine ER 60mg PO daily started today Continue to monitor BP. If needed, Hydralazine 10 mg PO Q6 may be started, however note, that Labetolol has not been maxed out. It may be possible to increase daily but not at more than 200 mg more per day. Work up: * Renal US--5 mm mid right renal cortical cyst * Renal duplex scan--no artery stenosis seen * Random urine protein elevated (15) and random urine creatinine 18.3 * f/u plasma aldosterone and renin Urinary tract infection Macrobid 100mg PO Q12H UA (07/28/17): * Nitrate: negative * LE: 2+ * Bacteria: Few Hyperemesis arising during Resolved Hx of aortic valve insufficiency Echo (02/23/17): Ejection fraction: 60% Moderate concentric LVH, Left atrium mildly dilated, mild to moderate aortic regurgitation Disposition: Patient will need high-risk ACCOUNTING PROFESSOR referral as an outpatient. Case DW Dr. Eric Baez PGY-1 <Pari Reyes V - Last Filed: 08/01/17 07:36> Objective - Vital Signs/Intake and Output Vital Signs (last 24 hours): Temp Pulse Resp BP Pulse Ox 98.2 F 66 20 130/82 99 08/01/17 06:00 08/01/17 06:00 08/01/17 06:00 08/01/17 06:00 08/01/17 06:00 - Medications Medications: Current Medications Acetaminophen (Tylenol 325mg Tab) 650 mg PO Q6 PRN PRN Reason: fever Last Admin: 07/31/17 20:14 Dose: 650 mg Docusate Sodium (Colace) 100 mg PO BID [facility] Last Admin: 07/31/17 17:29 Dose: 100 mg Ferrous Sulfate (Feosol) 325 mg PO BID [facility] Last Admin: 07/31/17 17:29 Dose: 325 mg Guaifenesin/Dextromethorphan (Robitussin Dm) 10 ml PO Q4H PRN PRN Reason: Cough and congestion Last Admin: 07/31/17 20:17 Dose: 10 ml Labetalol HCl (Trandate) 400 mg PO BID [facility] Last Admin: 07/31/17 17:29 Dose: 400 mg Nifedipine (Procardia Xl) 60 mg PO DAILY [facility] Last Admin: 07/31/17 09:07 Dose: 60 mg Nitrofurantoin Macrocrystals (Macrobid) 100 mg PO Q12H [facility] Stop: 08/06/17 10:31 Last Admin: 07/31/17 22:47 Dose: 100 mg Pantoprazole Sodium (Protonix Ec Tab) 20 mg PO DAILY [facility] Last Admin: 07/31/17 09:08 Dose: 20 mg Multivit/Folic Acid/Iron () 1 tab PO DAILY [facility] Last Admin: 07/31/17 17:29 Dose: 1 tab Pyridoxine HCl (Vitamin B6 50 Mg Tab) 50 mg PO DAILY [facility] Last Admin: 07/31/17 09:16 Dose: 50 mg - Labs Labs: 07/30/17 20:02 07/31/17 08:18 PT 12.9 SECONDS (9.7-12.2) H 07/28/17 22:18 INR 1.2 07/28/17 22:18 APTT 30 SECONDS (21-34) 07/28/17 22:18 Attending/Attestation - Attestation I have personally seen and examined this patient.: Yes I have fully participated in the care of the patient.: Yes I have reviewed all pertinent clinical information, including history, physical exam and plan: Yes Notes (Text): This is a late computer entry for 07/31/2017. Medicine on consult for chronic uncontrolled hypertension. Patient is a G6 para 1 wherein 3 elective abortions, one with prior a preeclampsia status post at [facility], miscarriage, and is currently at 6-1/2 weeks per ultrasound. Patient was admitted to ACCOUNTING PROFESSOR service for hyperemesis gravidarum. Patient seen this morning reports no further episodes of nausea, no vomiting, denies abdominal pain, denies fever denies chills denies urinary tract infection including dysuria, hematuria, frequency as well as denies constipation and denies diarrhea. Patient reports she once in a while goes to the clinic but denies any discussion with in regards to uncontrolled high blood pressure. Patient reports diet of kale, spinach, healthy foods. Patient does report she eats things like fries but does not add salt to her diet. Patient educated bedside in regards to taking daily blood pressure at home to help optimize her blood pressure control. Patient recommended to either get her blood pressure checked at her local pharmacy and recorded in the diary or to get a blood pressure cuff and to check her blood pressure at the same time daily and recorded in the diary to help titrate her medications when she visits her doctor. Patient has completed a renal ultrasound and renal duplex. Renal duplex does not support nor show renal artery stenosis. Renal ultrasound is relatively benign does not show any chronic changes but does note renal cyst that does need to be followed up as an outpatient. Patient is awaiting renin and aldosterone that can be followed up as outpatient as well. Patient is aware that she is high risk given her prior history of preeclampsia, history of uncontrolled hypertension, as well as aortic insufficiency and she has been advised by ACCOUNTING PROFESSOR hospitalist to follow up at a high risk facility as well as a high credit risk modeler in regards to her . Assessment/Plan 1) Chronic hypertension, uncontrolled History of prior preclampsia with prior - Labetolol 200mg PO BID increased to 400 mg PO BID this evening; recheck blood pressure at 8PM - Nifedipine ER 60mg PO daily started today - Continue to monitor BP. If needed, Hydralazine 10 mg PO Q6 may be started, however note, that Labetolol has not been maxed out. It may be possible to increase daily but not at more than 200 mg more per day. Work up: Renal US--5 mm mid right renal cortical cyst-->monitor as outpatient Renal duplex scan--no artery stenosis seen Random urine protein elevated (15) and random urine creatinine 18.3 f/u plasma aldosterone and renin followup as outpatient Echo (02/23/17): Ejection fraction: 60% Moderate concentric LVH, Left atrium mildly dilated, mild to moderate aortic regurgitation Discussed with the director of medical services and as well as ACCOUNTING PROFESSOR hospitalist 2) Urinary tract infection Management per ACCOUNTING PROFESSOR Macrobid 100mg PO Q12H UA (07/28/17): Nitrate: negative LE: 2+ Bacteria: Few 3) Hyperemesis arising during Management per ACCOUNTING PROFESSOR Resolved 4) Anemia Confirmed with ACCOUNTING PROFESSOR, prior anemia. Patient does have low iron stores. Has already been started by ACCOUNTING PROFESSOR on iron supplementation. 5) Hx of aortic valve insufficiency Echo (02/23/17): Ejection fraction: 60% Moderate concentric LVH, Left atrium mildly dilated, mild to moderate aortic regurgitation Disposition: Patient will need high-risk ACCOUNTING PROFESSOR referral as an outpatient and will need to monitor her blood pressure. Ideally, blood pressure should be below 140/90 prior to discharge patient was uncontrolled yesterday but we did increase labetalol in the meantime and suspect she will be controlled given she does have prior blood pressure where she was.
--- NOTE | 2017-07-31 15:25 | VASCLAB ---
PROCEDURE: Ultrasonography renal arterial evaluation HISTORY: Chronic HTN in COMPARISON: None available. TECHNIQUE: Real-time ultrasonography evaluation of the renal arteries were performed. Comparison is made to the aorta. Report prepared by KARLI Arevalo, RVT FINDINGS: AORTA: Patent. Peak systolic velocity 140 centimeters/second RIGHT RENAL ARTERY: Renal artery to aorta ratio: 1.3 * Proximal segment: Patent. Peak systolic velocity 141 centimeters/second * Mid segment: Patent. Peak systolic velocity 159 centimeters/second * Distal segment: Patent. Peak systolic velocity 176 centimeters/second Other findings: Right Kidney measures approximately 12.87 centimeters. LEFT RENAL ARTERY: Renal artery to aorta ratio: 1.0 * Proximal segment: Patent. Peak systolic velocity 105 centimeters/second * Mid segment: Patent. Peak systolic velocity 118 centimeters/second * Distal segment: Patent. Peak systolic velocity 134 centimeters/second Other findings: Left Kidney measures approximately 12.19 centimeters. IMPRESSION: No definite hemodynamically significant stenosis involving the renal arteries as visualized.
--- NOTE | 2017-07-31 15:55 | US ---
PROCEDURE: Ultrasound of the Kidneys HISTORY: Chronic HTN in COMPARISON: None available. TECHNIQUE: Sonogram of the kidneys. FINDINGS: RIGHT KIDNEY: Measures: 11.9 cm. Normal in size, contour and echogenicity. Simple cortical cyst mid kidney, 5 mm. No solid mass. No calculus or hydronephrosis. LEFT KIDNEY: Measures: 11.5 cm. Normal in size, contour and echogenicity. No stone, solid mass lesion or hydronephrosis visualized. OTHER FINDINGS: None. IMPRESSION: 5 mm mid right renal cortical cyst. Otherwise unremarkable examination
--- NOTE | 2017-08-01 07:35 | CP.PCM.PN ---
Subjective - Date & Time of Evaluation Date of Evaluation: 08/01/17 Time of Evaluation: 09:10 - Subjective Subjective: Medicine progress note for Dr. Reyes Patient seen and examined. Patient denies changes in vision, headache, chest pain, dyspnea, abdominal pain, dysuria. Patient was spoken with about the importance of follow up after discharge. Objective - Vital Signs/Intake and Output Vital Signs (last 24 hours): Temp Pulse Resp BP Pulse Ox 98.2 F 66 20 130/82 99 08/01/17 06:00 08/01/17 06:00 08/01/17 06:00 08/01/17 06:00 08/01/17 06:00 - Medications Medications: Current Medications Acetaminophen (Tylenol 325mg Tab) 650 mg PO Q6 PRN PRN Reason: fever Last Admin: 07/31/17 20:14 Dose: 650 mg Docusate Sodium (Colace) 100 mg PO BID [facility] Last Admin: 07/31/17 17:29 Dose: 100 mg Ferrous Sulfate (Feosol) 325 mg PO BID [facility] Last Admin: 07/31/17 17:29 Dose: 325 mg Guaifenesin/Dextromethorphan (Robitussin Dm) 10 ml PO Q4H PRN PRN Reason: Cough and congestion Last Admin: 07/31/17 20:17 Dose: 10 ml Labetalol HCl (Trandate) 400 mg PO BID [facility] Last Admin: 07/31/17 17:29 Dose: 400 mg Nifedipine (Procardia Xl) 60 mg PO DAILY [facility] Last Admin: 07/31/17 09:07 Dose: 60 mg Nitrofurantoin Macrocrystals (Macrobid) 100 mg PO Q12H [facility] Stop: 08/06/17 10:31 Last Admin: 07/31/17 22:47 Dose: 100 mg Pantoprazole Sodium (Protonix Ec Tab) 20 mg PO DAILY [facility] Last Admin: 07/31/17 09:08 Dose: 20 mg Multivit/Folic Acid/Iron () 1 tab PO DAILY [facility] Last Admin: 07/31/17 17:29 Dose: 1 tab Pyridoxine HCl (Vitamin B6 50 Mg Tab) 50 mg PO DAILY [facility] Last Admin: 07/31/17 09:16 Dose: 50 mg - Labs Labs: 07/30/17 20:02 07/31/17 08:18 PT 12.9 SECONDS (9.7-12.2) H 07/28/17 22:18 INR 1.2 07/28/17 22:18 APTT 30 SECONDS (21-34) 07/28/17 22:18 - Additional Findings Additional findings: - Constitutional Appears: No Acute Distress - Head Exam Head Exam: ATRAUMATIC, NORMOCEPHALIC - Eye Exam Eye Exam: EOMI, Normal appearance - ENT Exam ENT Exam: Mucous Membranes Moist - Respiratory Exam Respiratory Exam: Clear to Ausculation Bilateral, NORMAL BREATHING PATTERN. absent: Rales, Rhonchi, Wheezes - Cardiovascular Exam Cardiovascular Exam: REGULAR RHYTHM, +S1, +S2 - GI/Abdominal Exam GI & Abdominal Exam: Soft, Normal Bowel Sounds. absent: Guarding, Tenderness - Extremities Exam Extremities Exam: absent: Pedal Edema, Tenderness - Neurological Exam Neurological Exam: Alert, Awake, Oriented x3 - Psychiatric Exam Psychiatric exam: Normal Affect, Normal Mood - Skin Skin Exam: Dry, Intact, Normal Color, Warm Assessment and Plan - Assessment and Plan (Free Text) Plan: Chronic hypertension during Medications as follows: * Labetolol 400 mg PO BID * Nifedipine ER 60 mg PO daily * Hydralazine 50 mg PO BID Work up: * Renal US--5 mm mid right renal cortical cyst * Renal duplex scan--no artery stenosis seen * Random urine protein elevated (15) and random urine creatinine 18.3 Urinary tract infection Macrobid 100mg PO Q12H UA (07/28/17): * Nitrate: negative * LE: 2+ * Bacteria: Few Hyperemesis arising during Resolved Hx of aortic valve insufficiency Echo (02/23/17): Ejection fraction: 60% Moderate concentric LVH, Left atrium mildly dilated, mild to moderate aortic regurgitation Disposition: Patient is medically stable at this time and can be followed as an outpatient. Patient can be discharged on the 3 antihypertensive medications listed above. Patient will need high-risk WEARING APPAREL ASSEMBLER referral as an outpatient. Medicine team will sign off. Please re-consult if necessary. Case DW Dr. Eric Baez PGY-1
[2017-08-01] MEDS: guaiFENesin DM 200 mg-20 mg/10 ml UD PO PRN ×2 (10:07→15:57)
[2017-08-01] MEDS: Prenatal Multivit/Folic Acid/Iron Tab PO SCH (10:08)
[2017-08-01] MEDS: Pantoprazole 20 mg EC Tab PO SCH (10:10)
[2017-08-01] MEDS: NIFEdipine 60 mg ER Tab PO SCH (10:10)
--- NOTE | 2017-08-01 12:48 | CP.PCM.PN ---
Subjective - Date & Time of Evaluation Date of Evaluation: 08/01/17 Time of Evaluation: 07:00 - Subjective Subjective: PGY-1 Progress Note Patient seen and examined at bedside and has no complaints. Patient says she is feeling well. Patient denies headache, dizziness, shortness of breath, chest pain, abdominal pain, nausea, vomiting, constipation, or diarrhea. Objective - Vital Signs/Intake and Output Vital Signs (last 24 hours): Temp Pulse Resp BP Pulse Ox 98.2 F 74 20 153/100 H 99 08/01/17 08:00 08/01/17 10:00 08/01/17 10:00 08/01/17 10:00 08/01/17 10:00 - Medications Medications: Current Medications Acetaminophen (Tylenol 325mg Tab) 650 mg PO Q6 PRN PRN Reason: fever Last Admin: 07/31/17 20:14 Dose: 650 mg Docusate Sodium (Colace) 100 mg PO BID [facility] Last Admin: 08/01/17 10:07 Dose: 100 mg Ferrous Sulfate (Feosol) 325 mg PO BID [facility] Last Admin: 08/01/17 10:08 Dose: 325 mg Guaifenesin/Dextromethorphan (Robitussin Dm) 10 ml PO Q4H PRN PRN Reason: Cough and congestion Last Admin: 08/01/17 10:07 Dose: 10 ml Hydralazine HCl (Apresoline) 50 mg PO BID [facility] Labetalol HCl (Trandate) 400 mg PO BID [facility] Last Admin: 08/01/17 10:09 Dose: 400 mg Nifedipine (Procardia Xl) 60 mg PO DAILY [facility] Last Admin: 08/01/17 10:10 Dose: 60 mg Nitrofurantoin Macrocrystals (Macrobid) 100 mg PO Q12H [facility] Stop: 08/06/17 10:31 Last Admin: 08/01/17 10:10 Dose: 100 mg Pantoprazole Sodium (Protonix Ec Tab) 20 mg PO DAILY [facility] Last Admin: 08/01/17 10:10 Dose: 20 mg Multivit/Folic Acid/Iron () 1 tab PO DAILY [facility] Last Admin: 08/01/17 10:08 Dose: 1 tab Pyridoxine HCl (Vitamin B6 50 Mg Tab) 50 mg PO DAILY [facility] Last Admin: 08/01/17 10:12 Dose: 50 mg - Labs Labs: 07/30/17 20:02 07/31/17 08:18 PT 12.9 SECONDS (9.7-12.2) H 07/28/17 22:18 INR 1.2 07/28/17 22:18 APTT 30 SECONDS (21-34) 07/28/17 22:18 - Constitutional Appears: Non-toxic, No Acute Distress - Head Exam Head Exam: ATRAUMATIC, NORMAL INSPECTION, NORMOCEPHALIC - Eye Exam Eye Exam: EOMI, Normal appearance - Respiratory Exam Respiratory Exam: Clear to Ausculation Bilateral, NORMAL BREATHING PATTERN. absent: Rales, Rhonchi, Wheezes, Respiratory Distress, Stridor - Cardiovascular Exam Cardiovascular Exam: REGULAR RHYTHM, RRR, +S1, +S2 - GI/Abdominal Exam GI & Abdominal Exam: Soft, Normal Bowel Sounds. absent: Distended, Guarding - Extremities Exam Extremities Exam: Normal Inspection. absent: Pedal Edema - Neurological Exam Neurological Exam: Alert, Awake, Oriented x3 - Psychiatric Exam Psychiatric exam: Normal Affect, Normal Mood - Skin Skin Exam: Intact, Normal Color, Warm Assessment and Plan - Assessment and Plan (Free Text) Assessment: 32 year old , 6weeks 5days by sonogram 07/28/17, with hyperemesis gravidarum and chronic hypertension Hyperemesis gravidarum -patient's N/V resolved -continue slow progression of PO intake -Vit B6 50mg po daily HTN -Labetalol 400 mg po BID (changed on 08/01) -Nifedipine 60 mg po daily (started on 07/31) -Hydralazine 50mg po BID (started on 08/01) -Medicine consulted, follow recommendations -f/u Aldosterone, Plasma Renin -Renal US--5 mm mid right renal cortical cyst -Renal duplex scan--no artery stenosis seen -Random urine protein elevated (15) and random urine creatinine 18.3 Anemia -H/H: 8.9/27.9 -Iron: 12, TIBC: 336 %Sat: 4, Transferrin: 255.77, Ferritin 8 -Feosol 325mg po BID (started on 07/31) - vitamin 1 tab po daily -Continue to monitor UTI -Macrobid 100mg po q12h Cough -Robitussin DM Hx of aortic valve insufficiency -Echo (02/23/17): Ejection fraction: 60%, Moderate concentric LVH, Left atrium mildly dilated, mild to moderate aortic regurgitation Prophylaxis -Protonix 20 mg po daily -Colace 100mg po TID discussed with Dr. Dowell
[2017-08-02] MEDS: Prenatal Multivit/Folic Acid/Iron Tab PO SCH (10:04)
[2017-08-02] MEDS: Pantoprazole 20 mg EC Tab PO SCH (10:55)
[2017-08-02] MEDS: NIFEdipine 60 mg ER Tab PO SCH (10:55)
[2017-08-02] MEDS: guaiFENesin DM 200 mg-20 mg/10 ml UD PO PRN (11:03)
--- NOTE | 2017-08-02 18:26 | CP.PCM.PN ---
Subjective - Date & Time of Evaluation Date of Evaluation: 08/02/17 Time of Evaluation: 16:00 - Subjective Subjective: pt was seen at bed side. vomited x 1, c/o nsusea, no hedache or dizziness Objective - Vital Signs/Intake and Output Vital Signs (last 24 hours): Temp Pulse Resp BP Pulse Ox 97.5 F L 70 20 134/81 99 08/02/17 16:00 08/02/17 16:00 08/02/17 16:00 08/02/17 16:00 08/02/17 16:00 Intake and Output: 08/02/17 08/02/17 06:59 18:59 Intake Total 460 Output Total 0 Balance 460 - Medications Medications: Current Medications Acetaminophen (Tylenol 325mg Tab) 650 mg PO Q6 PRN PRN Reason: fever Last Admin: 07/31/17 20:14 Dose: 650 mg Docusate Sodium (Colace) 100 mg PO TID [facility] Last Admin: 08/02/17 14:00 Dose: Not Given Ferrous Sulfate (Feosol) 325 mg PO BID [facility] Last Admin: 08/02/17 10:04 Dose: 325 mg Guaifenesin/Dextromethorphan (Robitussin Dm) 10 ml PO Q4H PRN PRN Reason: Cough and congestion Last Admin: 08/02/17 11:03 Dose: 10 ml Hydralazine HCl (Apresoline) 50 mg PO BID [facility] Last Admin: 08/02/17 10:04 Dose: 50 mg Labetalol HCl (Trandate) 400 mg PO BID [facility] Last Admin: 08/02/17 10:55 Dose: 400 mg Nifedipine (Procardia Xl) 60 mg PO DAILY [facility] Last Admin: 08/02/17 10:55 Dose: 60 mg Nitrofurantoin Macrocrystals (Macrobid) 100 mg PO Q12H [facility] Stop: 08/06/17 10:31 Last Admin: 08/02/17 10:04 Dose: 100 mg Pantoprazole Sodium (Protonix Ec Tab) 20 mg PO DAILY [facility] Last Admin: 08/02/17 10:55 Dose: 20 mg Multivit/Folic Acid/Iron () 1 tab PO DAILY [facility] Last Admin: 08/02/17 10:04 Dose: 1 tab Pyridoxine HCl (Vitamin B6 50 Mg Tab) 50 mg PO DAILY [facility] Last Admin: 08/02/17 10:55 Dose: 50 mg - Labs Labs: 07/30/17 20:02 07/31/17 08:18 PT 12.9 SECONDS (9.7-12.2) H 07/28/17 22:18 INR 1.2 07/28/17 22:18 APTT 30 SECONDS (21-34) 07/28/17 22:18 Assessment and Plan - Assessment and Plan (Free Text) Assessment: 32 yr with hyperemesis gravidarum/ch htn Plan: plan cont zofram cont bp meds possible dc tomorrow
[2017-08-03 08:40] VITALS: BP 117/74; PULSE 60; RESP 18; TEMP 98.2; O2SAT 100
[2017-08-03] MEDS: Prenatal Multivit/Folic Acid/Iron Tab PO SCH (10:16)
[2017-08-03] MEDS: Pantoprazole 20 mg EC Tab PO SCH (10:17)
[2017-08-03] MEDS: NIFEdipine 60 mg ER Tab PO SCH (10:21)
--- NOTE | 2017-08-03 13:28 | CP.PCM.DIS ---
<Anabella Adan - Last Filed: 08/03/17 13:28> Provider - Provider Date of Admission: 07/29/17 00:15 Attending physician: Zoya Wagner MD Consults: Dr. Joshi/Eric (medicine consult) Time Spent in preparation of Discharge (in minutes): 40 Diagnosis - Discharge Diagnosis (1) Chronic hypertension during Status: Chronic (2) Hyperemesis arising during Status: Acute (3) Urinary tract infection Status: Resolved Hospital Course - Lab Results Lab Results: Most Recent Lab Values WBC 2.6 K/uL (4.8-10.8) L 07/30/17 20:02 RBC 3.58 Mil/uL (3.80-5.20) L 07/30/17 20:02 Hgb 8.9 g/dL (11.0-16.0) L 07/30/17 20:02 Hct 27.9 % (34.0-47.0) L 07/30/17 20:02 MCV 77.9 fL (81.0-99.0) L 07/30/17 20:02 MCH 24.9 pg (27.0-31.0) L 07/30/17 20:02 MCHC 32.0 g/dL (33.0-37.0) L 07/30/17 20:02 RDW 19.1 % (11.5-14.5) H 07/30/17 20:02 Plt Count 149 K/uL (130-400) 07/30/17 20:02 MPV 10.0 fL (7.2-11.7) 07/30/17 20:02 Neut % (Auto) 64.8 % (50.0-75.0) 07/30/17 20:02 Lymph % (Auto) 17.7 % (20.0-40.0) L 07/30/17 20:02 [place] % (Auto) 15.2 % (0.0-10.0) H 07/30/17 20:02 Eos % (Auto) 0.4 % (0.0-4.0) 07/30/17 20:02 Baso % (Auto) 1.9 % (0.0-2.0) 07/30/17 20:02 Neut # 1.7 K/uL (1.8-7.0) L 07/30/17 20:02 Lymph # 0.5 K/uL (1.0-4.3) L 07/30/17 20:02 [place] # 0.4 K/uL (0.0-0.8) 07/30/17 20:02 Eos # 0.0 K/uL (0.0-0.7) 07/30/17 20:02 Baso # 0.0 K/uL (0.0-0.2) 07/30/17 20:02 Neutrophils % (Manual) 58 % (50-75) 07/30/17 11:10 Band Neutrophils % 1 % (0-2) 07/30/17 11:10 Lymphocytes % (Manual) 20 % (20-40) 07/30/17 11:10 Monocytes % (Manual) 19 % (0-10) H 07/30/17 11:10 Basophils % (Manual) 2 % (0-2) 07/30/17 11:10 Platelet Estimate Slightly decreased (NORMAL) L 07/30/17 11:10 Large Platelets Present 07/30/17 11:10 Giant Platelets Present 07/30/17 11:10 Hypochromasia (manual) Slight 07/30/17 11:10 Poikilocytosis (manual Slight 07/30/17 11:10 Anisocytosis (manual) Moderate 07/30/17 11:10 Microcytosis (manual) Slight 07/30/17 11:10 Ovalocytes Slight 07/30/17 11:10 [place] Cells Slight 07/30/17 11:10 Schistocytes Slight 07/30/17 11:10 Retic Count 0.8 % (0.5-1.5) 07/31/17 08:18 PT 12.9 SECONDS (9.7-12.2) H 07/28/17 22:18 INR 1.2 07/28/17 22:18 APTT 30 SECONDS (21-34) 07/28/17 22:18 Sodium 129 mmol/L (132-148) L 07/31/17 08:18 Potassium 3.8 mmol/L (3.6-5.2) 07/31/17 08:18 Chloride 101 mmol/L (98-107) 07/31/17 08:18 Carbon Dioxide 20 mmol/L (22-30) L 07/31/17 08:18 Anion Gap 12 (10-20) 07/31/17 08:18 BUN 5 mg/dL (7-17) L 07/31/17 08:18 Creatinine 0.6 mg/dL (0.7-1.2) L 07/31/17 08:18 Est GFR ( Amer) > 60 07/31/17 08:18 Est GFR (Non-Af Amer) > 60 07/31/17 08:18 Random Glucose 101 mg/dL (65-105) 07/31/17 08:18 Calcium 8.4 mg/dl (8.6-10.4) L 07/31/17 08:18 Iron 12 ug/dL (37-170) L 07/31/17 08:18 TIBC 336 ug/dL (250-450) 07/31/17 08:18 % Saturation 4 (20-55) L 07/31/17 08:18 Transferrin 255.77 mg/dL (206-381) 07/31/17 08:18 Ferritin 8.0 ng/mL 07/31/17 08:18 Total Bilirubin < 0.1 mg/dL (0.2-1.3) L 07/30/17 11:10 Direct Bilirubin 0.3 mg/dL (0.0-0.4) 07/28/17 22:13 AST 11 U/L (14-36) L D 07/30/17 11:10 ALT 17 U/L (9-52) 07/30/17 11:10 Alkaline Phosphatase 45 U/L (38-126) 07/30/17 11:10 Total Protein 5.4 g/dL (6.3-8.3) L 07/30/17 11:10 Albumin 2.7 g/dL (3.5-5.0) L D 07/30/17 11:10 Globulin 2.7 gm/dL (2.2-3.9) 07/30/17 11:10 Albumin/Globulin Ratio 1.0 (1.0-2.1) 07/30/17 11:10 Lipase 104 U/L (23-300) 07/28/17 22:13 TSH 3rd Generation 1.69 mIU/L (0.46-4.68) 07/29/17 08:37 Beta HCG, Quant 56379.00 mIU/ML 07/28/17 22:13 Urine Color Straw (YELLOW) 07/31/17 00:17 Urine Clarity Hazy (Clear) 07/31/17 00:17 Urine pH 6.0 (5.0-8.0) 07/31/17 00:17 Ur Specific [place] 1.002 (1.003-1.030) L 07/31/17 00:17 Urine Protein Negative mg/dL (NEGATIVE) 07/31/17 00:17 Urine Glucose (UA) Normal mg/dL (Normal) 07/31/17 00:17 Urine Ketones Negative mg/dL (NEGATIVE) 07/31/17 00:17 Urine Blood Negative (NEGATIVE) 07/31/17 00:17 Urine Nitrate Negative (NEGATIVE) 07/31/17 00:17 Urine Bilirubin Negative (NEGATIVE) 07/31/17 00:17 Urine Urobilinogen Normal mg/dL (0.2-1.0) 07/31/17 00:17 Ur Leukocyte Esterase 2+ Terry/uL (Negative) H 07/31/17 00:17 Urine WBC (Auto) 3 /hpf (0-5) 07/31/17 00:17 Urine RBC (Auto) 5 /hpf (0-3) H 07/28/17 22:13 Ur Squamous Epith Cells 1 /hpf (0-5) 07/31/17 00:17 Urine Bacteria Rare (<OCC) 07/31/17 00:17 Ur Random Creatinine 18.3 mg/dL 07/31/17 00:17 U Random Total Protein 15.0 mg/dL (0.0-12.0) H 07/31/17 00:30 Urine HCG, Qual Positive (NEGATIVE) 07/28/17 22:13 Blood Type A POSITIVE 07/28/17 22:18 Antibody Screen Negative 07/28/17 22:18 - Hospital Course Hospital Course: H HPI: "32 y.o. , 6w 2d by susanne 07/28/17 admitted for management of hyperemesis gravidarum. S/P E.D. visit 07/22 18 c/o upper abdominal pain. Incidental finding of then. Discharged home on p.o. antibiotics for UTI, which she has not been able to complete due to onset of nausea and vomiting soon after that E.D. visit. Patient reports "all day vomiting" prompting visit to [facility]. Denies dizziness, lightheadedness, chest pain, shortness of breath. Upper abdominal pain still present. Patient is also a chronic hypertensive; last took antihypertensives 07/24/17. In E.D. BPs treated with hydralazine push x 2: prior to transfer to , BP 160/103. Denies headaches, blurred vision. Patient is hungry; (+) nausea. Has not vomited since receiving anti- emetics in E.D." For nausea patient was given Reglan, Zofran, Pyridoxine, and IVFs. Patient was advanced to a regular diet slowly and nausea and vomiting resolved. For patient's hypertension patient was started on Labetalol 100mg po BID. Medicine was consulted and Labetalol increased to 200mg BID in addition to Nifedipine ER 60 mg. Renal US done which showed 5mm mid right renal cortical cyst. Renal duplex scan showed no artery stenosis. Random urine protein was 15 and random urine creatinine was 18.3. Labetalol was increased to 400mg po BID. Hydralazine 50 mg po BID was added. The final combination of these three medications stabilized the patient's blood pressure. Patient to continue these as an outpatient and follow up with the high risk clinic at [facility]. For patient's UTI, patient was given Macrobid. Patient denied pain with urination, frequency, or hematuria. For patient's chronic anemia Feosol was started on 07/31 along with a vitamin. Iron: 12, TIBC: 336 %Sat: 4, Transferrin: 255.77, Ferritin 8. Patient to continue iron supplementation as an outpatient. Discharge Exam - Head Exam Head Exam: ATRAUMATIC, NORMAL INSPECTION, NORMOCEPHALIC - Respiratory Exam Respiratory Exam: Clear to PA & Lateral, NORMAL BREATHING PATTERN, UNREMARKABLE - Cardiovascular Exam Cardiovascular Exam: REGULAR RHYTHM, RRR, +S1, +S2 - GI/Abdominal Exam GI & Abdominal Exam: Normal Bowel Sounds, Soft. absent: Distended, Firm, Guarding, Tenderness - Extremities Exam Extremities exam: normal inspection - Neurological Exam Neurological exam: Alert, Oriented x3 - Psychiatric Exam Psychiatric exam: Normal Affect, Normal Mood - Skin Skin Exam: Intact, Normal Color, Warm Discharge Plan - Discharge Medications Prescriptions: Ferrous Fumarate [Yola-Sequel] 50 mg PO BID #60 tab hydrALAZINE [Apresoline] 50 mg PO BID #60 tab Labetalol [Trandate] 400 mg PO BID #60 tab NIFEdipine ER [Procardia XL] 60 mg PO DAILY #30 ter Multivit/Folic Acid/I [] 1 tab PO DAILY 30 Days #1 tab - Follow Up Plan Condition: STABLE Disposition: HOME/ ROUTINE Instructions: Hyperemesis Gravidarum (DC), Chronic Hypertension (DC) Additional Instructions: Patient stable for discharge. Patient to follow up with high risk clinic at [facility] within one week. Patient to take: vitamins daily, Yola-Sequel twice a day, Hydralazine 50mg twice a day, Labetalol 400 mg twice a day, Nifedipine ER 60 mg daily. Patient needs to monitor her blood pressure at home. Patient to return to Emergency Room if blood pressure elevated, dizziness, nausea, vomiting, abdominal pain, vaginal bleeding/ discharge, fevers, or chills. Referrals: [facility] [Provider Group] <Zoya Wagner - Last Filed: 08/03/17 22:31> Provider - Provider Date of Admission: 07/29/17 00:15 Attending physician: Zoya Wagner MD Hospital Course - Lab Results Lab Results: Most Recent Lab Values WBC 2.6 K/uL (4.8-10.8) L 07/30/17 20:02 RBC 3.58 Mil/uL (3.80-5.20) L 07/30/17 20:02 Hgb 8.9 g/dL (11.0-16.0) L 07/30/17 20:02 Hct 27.9 % (34.0-47.0) L 07/30/17 20:02 MCV 77.9 fL (81.0-99.0) L 07/30/17 20:02 MCH 24.9 pg (27.0-31.0) L 07/30/17 20:02 MCHC 32.0 g/dL (33.0-37.0) L 07/30/17 20:02 RDW 19.1 % (11.5-14.5) H 07/30/17 20:02 Plt Count 149 K/uL (130-400) 07/30/17 20:02 MPV 10.0 fL (7.2-11.7) 07/30/17 20:02 Neut % (Auto) 64.8 % (50.0-75.0) 07/30/17 20:02 Lymph % (Auto) 17.7 % (20.0-40.0) L 07/30/17 20:02 [place] % (Auto) 15.2 % (0.0-10.0) H 07/30/17 20:02 Eos % (Auto) 0.4 % (0.0-4.0) 07/30/17 20:02 Baso % (Auto) 1.9 % (0.0-2.0) 07/30/17 20:02 Neut # 1.7 K/uL (1.8-7.0) L 07/30/17 20:02 Lymph # 0.5 K/uL (1.0-4.3) L 07/30/17 20:02 [place] # 0.4 K/uL (0.0-0.8) 07/30/17 20:02 Eos # 0.0 K/uL (0.0-0.7) 07/30/17 20:02 Baso # 0.0 K/uL (0.0-0.2) 07/30/17 20:02 Neutrophils % (Manual) 58 % (50-75) 07/30/17 11:10 Band Neutrophils % 1 % (0-2) 07/30/17 11:10 Lymphocytes % (Manual) 20 % (20-40) 07/30/17 11:10 Monocytes % (Manual) 19 % (0-10) H 07/30/17 11:10 Basophils % (Manual) 2 % (0-2) 07/30/17 11:10 Platelet Estimate Slightly decreased (NORMAL) L 07/30/17 11:10 Large Platelets Present 07/30/17 11:10 Giant Platelets Present 07/30/17 11:10 Hypochromasia (manual) Slight 07/30/17 11:10 Poikilocytosis (manual Slight 07/30/17 11:10 Anisocytosis (manual) Moderate 07/30/17 11:10 Microcytosis (manual) Slight 07/30/17 11:10 Ovalocytes Slight 07/30/17 11:10 [place] Cells Slight 07/30/17 11:10 Schistocytes Slight 07/30/17 11:10 Retic Count 0.8 % (0.5-1.5) 07/31/17 08:18 PT 12.9 SECONDS (9.7-12.2) H 07/28/17 22:18 INR 1.2 07/28/17 22:18 APTT 30 SECONDS (21-34) 07/28/17 22:18 Sodium 129 mmol/L (132-148) L 07/31/17 08:18 Potassium 3.8 mmol/L (3.6-5.2) 07/31/17 08:18 Chloride 101 mmol/L (98-107) 07/31/17 08:18 Carbon Dioxide 20 mmol/L (22-30) L 07/31/17 08:18 Anion Gap 12 (10-20) 07/31/17 08:18 BUN 5 mg/dL (7-17) L 07/31/17 08:18 Creatinine 0.6 mg/dL (0.7-1.2) L 07/31/17 08:18 Est GFR ( Amer) > 60 07/31/17 08:18 Est GFR (Non-Af Amer) > 60 07/31/17 08:18 Random Glucose 101 mg/dL (65-105) 07/31/17 08:18 Calcium 8.4 mg/dl (8.6-10.4) L 07/31/17 08:18 Iron 12 ug/dL (37-170) L 07/31/17 08:18 TIBC 336 ug/dL (250-450) 07/31/17 08:18 % Saturation 4 (20-55) L 07/31/17 08:18 Transferrin 255.77 mg/dL (206-381) 07/31/17 08:18 Ferritin 8.0 ng/mL 07/31/17 08:18 Total Bilirubin < 0.1 mg/dL (0.2-1.3) L 07/30/17 11:10 Direct Bilirubin 0.3 mg/dL (0.0-0.4) 07/28/17 22:13 AST 11 U/L (14-36) L D 07/30/17 11:10 ALT 17 U/L (9-52) 07/30/17 11:10 Alkaline Phosphatase 45 U/L (38-126) 07/30/17 11:10 Total Protein 5.4 g/dL (6.3-8.3) L 07/30/17 11:10 Albumin 2.7 g/dL (3.5-5.0) L D 07/30/17 11:10 Globulin 2.7 gm/dL (2.2-3.9) 07/30/17 11:10 Albumin/Globulin Ratio 1.0 (1.0-2.1) 07/30/17 11:10 Lipase 104 U/L (23-300) 07/28/17 22:13 Renin 0.61 ng/mL/h (0.25-5.82) 07/31/17 08:18 TSH 3rd Generation 1.69 mIU/L (0.46-4.68) 07/29/17 08:37 Beta HCG, Quant 63476.00 mIU/ML 07/28/17 22:13 Urine Color Straw (YELLOW) 07/31/17 00:17 Urine Clarity Hazy (Clear) 07/31/17 00:17 Urine pH 6.0 (5.0-8.0) 07/31/17 00:17 Ur Specific [place] 1.002 (1.003-1.030) L 07/31/17 00:17 Urine Protein Negative mg/dL (NEGATIVE) 07/31/17 00:17 Urine Glucose (UA) Normal mg/dL (Normal) 07/31/17 00:17 Urine Ketones Negative mg/dL (NEGATIVE) 07/31/17 00:17 Urine Blood Negative (NEGATIVE) 07/31/17 00:17 Urine Nitrate Negative (NEGATIVE) 07/31/17 00:17 Urine Bilirubin Negative (NEGATIVE) 07/31/17 00:17 Urine Urobilinogen Normal mg/dL (0.2-1.0) 07/31/17 00:17 Ur Leukocyte Esterase 2+ Terry/uL (Negative) H 07/31/17 00:17 Urine WBC (Auto) 3 /hpf (0-5) 07/31/17 00:17 Urine RBC (Auto) 5 /hpf (0-3) H 07/28/17 22:13 Ur Squamous Epith Cells 1 /hpf (0-5) 07/31/17 00:17 Urine Bacteria Rare (<OCC) 07/31/17 00:17 Ur Random Creatinine 18.3 mg/dL 07/31/17 00:17 U Random Total Protein 15.0 mg/dL (0.0-12.0) H 07/31/17 00:30 Urine HCG, Qual Positive (NEGATIVE) 07/28/17 22:13 Blood Type A POSITIVE 07/28/17 22:18 Antibody Screen Negative 07/28/17 22:18 Attending/Attestation - Attestation I have personally seen and examined this patient.: Yes I have fully participated in the care of the patient.: Yes I have reviewed all pertinent clinical information, including history, physical exam and plan: Yes Notes (Text): 08/03/17 22:31 I agree with the above summary, assessment and plan
[2017-08-03] MEDS ORDERED: Influenza Vaccine 60 mcg/0.5 mL SYR (4YR UP) IM ONE (14:31)
== END 2017-08-03 15:00 | disposition home or self-care (01) | DRG 886 ==
LOC: C.ER 20:53 → C.9E 07-29 00:15 → C.4M 07-29 01:05
PROVIDERS: ADMIT Obstetrics & Gynecology; ATTEND Obstetrics & Gynecology
DX: O21.1 Hyperemesis gravidarum with metabolic disturbance (principal); O23.41 Unspecified infection of urinary tract in pregnancy, first trimester; O10.911 Unspecified pre-existing hypertension complicating pregnancy, first trimester; I35.1 Nonrheumatic aortic (valve) insufficiency; E87.6 Hypokalemia; O99.011 Anemia complicating pregnancy, first trimester; O34.81 Maternal care for other abnormalities of pelvic organs, first trimester; N83.12 Corpus luteum cyst of left ovary; D50.9 Iron deficiency anemia, unspecified; N28.1 Cyst of kidney, acquired; Z3A.01 Less than 8 weeks gestation of pregnancy; Z87.891 Personal history of nicotine dependence

== ENCOUNTER 2018-01-22 22:01 | Inpatient (IN) | payer OTHER ==
[2018-01-22 22:01] VITALS: BMI 27.3
--- NOTE | 2018-01-22 22:44 | C.PDOC ---
History Of Present Illness 32-year-old female presents to the ED with complaints of left lower back pain for the past 2-3 days. Also reports she vomited yesterday. Patient complains of persistent nausea and generalized weakness. Otherwise no fever or chills. Time Seen by Provider: 01/22/18 22:42 Chief Complaint (Nursing): Back Pain History Per: Patient History/Exam Limitations: no limitations Onset/Duration Of Symptoms: Days Current Symptoms Are (Timing): Still Present Quality Of Discomfort: Dull, Cramping Severity: Moderate Pain Scale Rating Of: 4 Previous Symptoms: Back Pain Associated Symptoms: None Exacerbating Factor(s): Nothing Recent travel outside of the [place]: No Additional History Per: Patient Past Medical History Reviewed: Historical Data, Nursing Documentation, Vital Signs Vital Signs: Last Vital Signs Temp 98.2 F 01/23/18 03:44 Pulse 80 01/23/18 03:44 Resp 20 01/23/18 03:44 BP 117/64 01/23/18 03:44 Pulse Ox 100 01/23/18 04:10 - Medical History PMH: HTN (Gestational Hypertension, and chronic) Denies: Chronic Kidney Disease - [facility] Procedures RESECTION OF PRODUCTS OF CONCEPTION, ECTOPIC, OPEN APPROACH (02/22/17) RESECTION OF RIGHT FALLOPIAN TUBE, OPEN APPROACH (02/22/17) Family History: States: No Known Family Hx - Social History Hx Tobacco Use: No (former smoker) Hx Alcohol Use: No Hx Substance Use: No - Immunization History Hx Tetanus Toxoid Vaccination: No Hx Influenza Vaccination: No Hx Pneumococcal Vaccination: No Review Of Systems Constitutional: Negative for: Fever, Chills Cardiovascular: Negative for: Chest Pain Respiratory: Negative for: Shortness of Breath Gastrointestinal: Positive for: Nausea, Vomiting, Abdominal Pain Genitourinary: Negative for: Hematuria Musculoskeletal: Positive for: Back Pain Skin: Negative for: Rash Neurological: Negative for: Weakness Psych: Negative for: Anxiety Physical Exam - Physical Exam Appears: Non-toxic, No Acute Distress Skin: Warm, Dry Eye(s): bilateral: Normal Inspection Oral Mucosa: Dry Neck: Supple Chest: Symmetrical Cardiovascular: Rhythm Regular Respiratory: No Rales, Rhonchi, No Wheezing Gastrointestinal/Abdominal: Bowel Sounds, Soft, Tenderness, No Distention Back: No CVA Tenderness Extremity: Normal ROM Extremity: Bilateral: Atraumatic Pulses: Left Dorsalis Pedis: Normal, Right Dorsalis Pedis: Normal Neurological/Psych: Oriented x3 Gait: Steady ED Course And Treatment - Laboratory Results Result Diagrams: 01/22/18 23:10 01/22/18 23:10 O2 Sat by Pulse Oximetry: 100 Pulse Ox Interpretation: Normal - CT Scan/US CT A/P Other Rad Studies (CT/US): Read By Radiologist, Radiology Report Reviewed CT/US Interpretation: Name: DANISH KNOX Age: 32Years F Date: 01/22/2018. Requesting Physician: NATALIA BURGOS : [id number]. [facility] Procedure Ordered As Accession Number of. Images. CT ABDOMEN/PELVIS. WO. CT ABD PELVIS W O PO OR IV. CONT. [id number]. J. 652. Provided Clinical History: left flank pain, nausea and vomiting. EXAM: CT Abdomen and Pelvis Without Intravenous Contrast. CLINICAL HISTORY: 32 years old, female; Pain; Abdominal pain; Additional info: Left flank pain, nausea and vomiting. TECHNIQUE: Axial computed tomography images of the abdomen and pelvis without intravenous contrast. All CT. scans at this facility use at least one of these dose optimization techniques: automated exposure. control; mA and/or kV adjustment per patient size (includes targeted exams where dose is matched to. clinical indication); or iterative reconstruction. Coronal and sagittal reformatted images were created and reviewed. COMPARISON: No relevant prior studies available. FINDINGS: Lung bases: Unremarkable. No mass. No consolidation. Pleural space: Small to moderate size left pleural effusion. ABDOMEN: Liver: Unremarkable. Gallbladder and bile ducts: Unremarkable. No calcified stones. No ductal dilation. Pancreas: Unremarkable. No ductal dilation. Spleen: Unremarkable. No splenomegaly. Adrenals: Unremarkable. No mass. Kidneys and ureters: Unremarkable. No obstructing stones. No hydronephrosis. Stomach and bowel: Unremarkable. No obstruction. No mucosal thickening. PELVIS: Appendix: No findings to suggest acute appendicitis. Bladder: Unremarkable. No stones. Reproductive: Unremarkable as visualized. ABDOMEN and PELVIS: Intraperitoneal space: Unremarkable. No free air. No significant fluid collection. Bones/joints: No acute fracture. No dislocation. Soft tissues: Unremarkable. Vasculature: Unremarkable. No abdominal aortic aneurysm. Lymph nodes: Unremarkable. No enlarged lymph nodes. IMPRESSION: Small to moderate size left effusion. Thank you for allowing us to participate in the care of your patient. Dictated and Authenticated by: Silver Hidalgo MD. 01/23/2018 1:36 AM Eastern Time ([place] & [place]) Progress Note: Blood work and urine sent. Patient started on IV fluids, Zofran, and Toradol. Patient continuing to have pain. Ordered CT abdomen/pelvis without contrast. Patient continuing to c/o pain and nausea. Given 4 mg IV Morphine and 10 mg IV Reglan. Disposition Discussed With Dr.: Edilson Joshi Comment: accepted the pt on his service and took over the care Doctor Will See Patient In The: ED Counseled Patient/Family Regarding: Studies Performed, Diagnosis - Disposition Disposition: HOSPITALIZED Disposition Time: 22:44 Condition: FAIR Forms: [facility] (Micronesian) - POA Present On Arrival: None - Clinical Impression Clinical Impression: Abdominal pain, Nausea, Vomiting, Pleural effusion - Scribe Statement The provider has reviewed the documentation as recorded by the Scribe (Roxane Hilton) Provider Attestation: All medical record entries made by the Scribe were at my direction and personally dictated by me. I have reviewed the chart and agree that the record accurately reflects my personal performance of the history, physical exam, medical decision making, and the department course for this patient. I have also personally directed, reviewed, and agree with the discharge instructions and disposition. Decision To Admit - Pt Status Changed To: Hospital Disposition Of: Inpatient - Admit Certification Admit to Inpatient:: After my assessment, the patient will require hospitalization for at least two midnights. This is because of the severity of symptoms shown, intensity of services needed, and/or the medical risk in this patient being treated as an outpatient. - InPatient: Physician Admission Certification:: After my assessment, the patient will require hospitalization for at least two midnights. This is because of the severity of symptoms shown, intensity of services needed, and/or the medical risk in this patient being treated as an outpatient. - . Bed Request Type: Regular Admitting Physician: Edilson Joshi Patient Diagnosis: Abdominal pain, Nausea, Vomiting, Pleural effusion
[2018-01-22] MEDS ORDERED: Sodium Chloride 0.9% 1,000 ML IV ONE (22:56)
[2018-01-22 23:19] LABS: RBC 4.36 Mil/uL (3.80-5.20); WHITE BLOOD COUNT 8.9 K/uL (4.8-10.8)
[2018-01-22 23:20] LABS: BASO % 0.9 % (0.0-2.0); EOS % 2.2 % (0.0-4.0); HEMOGLOBIN 10.8 g/dL (11.0-16.0); LYMPH # 1.6 K/uL (1.0-4.3); LYMPH % 17.7 % (20.0-40.0); MEAN CELL VOLUME 76.5 fL (81.0-99.0); MEAN CORPUSCULAR HEMOGLOBIN 24.8 pg (27.0-31.0); MEAN CORPUSCULAR HGB CONC 32.5 g/dL (33.0-37.0); MEAN PLATELET VOLUME 9.1 fL (7.2-11.7); MONO # 0.9 K/uL (0.0-0.8); MONO % 10.5 % (0.0-10.0); NEUT # 6.1 K/uL (1.8-7.0); NEUT % 68.7 % (50.0-75.0); RED CELL DISTRIBUTION WIDTH 18.6 % (11.5-14.5)
[2018-01-22 23:21] LABS: BASO # 0.1 K/uL (0.0-0.2); EOS # 0.2 K/uL (0.0-0.7)
[2018-01-22 23:23] LABS: HCG,QUALITATIVE URINE NEGATIVE (NEGATIVE)
[2018-01-22 23:25] LABS: SQUAMOUS EPITHIAL 46 /hpf (0-5); URINE BACTERIA OCC (<OCC); URINE BILIRUBIN NEGATIVE (NEGATIVE); URINE BLOOD NEGATIVE (NEGATIVE); URINE CLARITY Hazy (Clear); URINE COLOR Yellow (YELLOW); URINE GLUCOSE (UA) NORMAL (Normal); URINE LEUKOCYTE ESTERASE TRACE Leu/uL (Negative); URINE PROTEIN NEGATIVE (NEGATIVE); URINE UROBILINOGEN NORMAL mg/dL (0.2-1.0)
[2018-01-22 23:39] LABS: ALB/GLOB RATIO 1.1 (1.0-2.1); ALBUMIN 3.8 g/dL (3.5-5.0); CALCIUM 9.2 mg/dl (8.6-10.4)
[2018-01-22] MEDS ORDERED: Potassium Chloride 10 mEq ER Tab PO STA (23:50)
[2018-01-22] MEDS ORDERED: Potassium Chloride 20 mEq ER Tab PO ONE (23:59)
[2018-01-23] MEDS ORDERED: Potassium Chloride 20 mEq 100 ML ONE
[2018-01-23] MEDS ORDERED: Sodium Chloride 0.9% 1,000 ML ONE (00:01)
[2018-01-23] MEDS ORDERED: Morphine 4 MG/ML VIAL ONE (04:10)
--- NOTE | 2018-01-23 04:20 | CP.PCM.HP ---
History of Present Illness - History of Present Illness History of Present Illness: Medicine Note for Hospitalist Service CC: left sided back pain HPI: This is a 32 year old female with PMHx of Hypertension and Aortic Valve Insufficiency who presents to the ED with left lower back pain x 4 days. Patient reports she woke up Monday morning with the pain that is achy, sharp in nature, worse with inspiration and is positional. She denied any recent trauma to the area, carry heavy objects, lifting or holding children, sleeping incorrectly on her backside. She had several episodes of nausea and vomiting, secondary to the pain. She has taken tylenol and motrin which has provided temporary relief. She denied any associated recent illness, fever, chills, cough , sick contacts, recent travel, headache, chest pain, d/c, dysuria, hematuria, or other urinary symptoms. PMD: Dr. Fitch PMHx: HTN, History of Aortic Valve Insufficiency PSHx: (2009), D&C x4; ex-lap with salpingectomy (due to ectopic 2016) Medications: Hydralazine 100mg PO BID, Nifidepine ER 60mg PO daily, Metoprolol Tartrate 25mg PO BID Allergies: Coconut: cough and upper airway spasm FHx: Mother, alive, age 73, HTN. Father, age 64, alive, HTN SHx: Smokes 2 cigarettes a day, social alcohol use, denied any illicit drug use OB Hx: G1, G2, G3: Elective G4: 2009, male , 7 lbs 12 oz, due to pre-eclampsia. 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 Hx: Menarche: 11/ Regular/ 3-5 days Denies hx of abnormal pap smear and fibroids and ovarian cysts Admit to in early 20s Present on Admission - Present on Admission Any Indicators Present on Admission: No Past Patient History - Infectious Disease Hx of Infectious Diseases: None - Past Medical History & Family History Past Medical History?: Yes - Past Social History Smoking Status: Former Smoker - CARDIAC Hx Hypertension: Yes (Gestational Hypertension, and chronic) - PULMONARY Hx Respiratory Disorders: No - NEUROLOGICAL Hx Neurological Disorder: No - HEENT Hx HEENT Problems: No - RENAL Hx Chronic Kidney Disease: No - ENDOCRINE/METABOLIC Hx Endocrine Disorders: No - HEMATOLOGICAL/ONCOLOGICAL Hx Blood Disorders: No - INTEGUMENTARY Hx Dermatological Problems: No - MUSCULOSKELETAL/RHEUMATOLOGICAL Hx Musculoskeletal Disorders: No - GASTROINTESTINAL Hx Gastrointestinal Disorders: No - GENITOURINARY/GYNECOLOGICAL Hx Genitourinary Disorders: No - PSYCHIATRIC Hx Substance Use: No - SURGICAL HISTORY Hx Surgeries: Yes Hx Section: Yes (x1) Other/Comment: 02/22/17, Exploratory laparotomy with salpingectomy - ANESTHESIA Hx Anesthesia: Yes Hx Anesthesia Reactions: No Meds Allergies/Adverse Reactions: Allergies Allergy/AdvReac Type Severity Reaction Status Date / Time coconuts Allergy Uncoded 07/28/17 21:19 Physical Exam - Constitutional Appears: No Acute Distress - Head Exam Head Exam: NORMAL INSPECTION, NORMOCEPHALIC - Eye Exam Eye Exam: EOMI, Normal appearance, PERRL. absent: Nystagmus, Scleral icterus Pupil Exam: NORMAL ACCOMODATION - ENT Exam ENT Exam: Mucous Membranes Moist - Neck Exam Neck exam: Positive for: Normal Inspection - Respiratory Exam Respiratory Exam: Decreased Breath Sounds, NORMAL BREATHING PATTERN Additional comments: LLL - Cardiovascular Exam Cardiovascular Exam: Systolic Murmur. absent: Tachycardia, Diastolic murmur, Gallop - GI/Abdominal Exam GI & Abdominal Exam: Normal Bowel Sounds, Soft, Tenderness. absent: Distended, Firm, Guarding, Hernia, Mass, Organomegaly, Rebound Additional comments: LLQ, RLQ bilateral renal bruits noted - Rectal Exam Rectal Exam: Deferred - Extremities Exam Extremities exam: Positive for: normal inspection, pedal pulses present. Negative for: pedal edema, tenderness - Back Exam Back exam: NORMAL INSPECTION - Neurological Exam Neurological exam: Alert, CN II-XII Intact, Oriented x3 - Psychiatric Exam Psychiatric exam: Normal Affect, Normal Mood - Skin Skin Exam: Dry, Intact, Normal Color, Warm Results - Vital Signs Recent Vital Signs: Last Vital Signs Temp 98.2 F 01/23/18 03:44 Pulse 80 01/23/18 03:44 Resp 20 01/23/18 03:44 BP 117/64 01/23/18 03:44 Pulse Ox 100 01/23/18 04:10 - Labs Result Diagrams: 01/22/18 23:10 01/22/18 23:10 Labs: Laboratory Results - last 24 hr 01/22/18 01/22/18 01/22/18 23:10 23:10 23:10 WBC 8.9 D RBC 4.36 Hgb 10.8 L Hct 33.3 L MCV 76.5 L MCH 24.8 L MCHC 32.5 L RDW 18.6 H Plt Count 194 MPV 9.1 Neut % (Auto) 68.7 Lymph % (Auto) 17.7 L [place] % (Auto) 10.5 H Eos % (Auto) 2.2 Baso % (Auto) 0.9 Neut # (Auto) 6.1 Lymph # (Auto) 1.6 [place] # (Auto) 0.9 H Eos # (Auto) 0.2 Baso # (Auto) 0.1 Sodium 133 Potassium 2.8 L Chloride 93 L Carbon Dioxide 27 Anion Gap 16 BUN 11 Creatinine 1.3 H Est GFR ( Amer) 57 Est GFR (Non-Af Amer) 47 Random Glucose 90 Calcium 9.2 Total Bilirubin 0.7 AST 15 ALT 20 Alkaline Phosphatase 96 Total Protein 7.2 Albumin 3.8 Globulin 3.4 Albumin/Globulin Ratio 1.1 Lipase 51 Urine Color Yellow Urine Clarity Hazy Urine pH 5.0 Ur Specific [place] 1.004 Urine Protein Negative Urine Glucose (UA) Normal Urine Ketones Negative Urine Blood Negative Urine Nitrate Negative Urine Bilirubin Negative Urine Urobilinogen Normal Ur Leukocyte Esterase Trace Urine WBC (Auto) 8 H Urine RBC (Auto) 3 Ur Squamous Epith Cells 46 H Ur Transition Epith Cell < 1 Urine Bacteria Occ H Urine HCG, Qual Negative Assessment & Plan - Assessment and Plan (Free Text) Plan: Left Lower Lobe Pleural Effusion IR consulted for diagnostic and therapeutic thoracentesis - Small to moderate Effusion (L) noted on CT abdomen/pelvis; etiology unclear - Denied any recent trauma, admitted to pleuritic pain, worse with deep inspiration - Motrin, Toradol PRN for pain - F/U CT Chest for further evaluation - F/U pleural fluid cytology after diagnostic thoracentesis Hypertension Work up July 2017 during prior admission: - Renal US--5 mm mid right renal cortical cyst - Renal duplex scan--no artery stenosis seen Current admission: - Blood pressure is controlled on 6 medications, concerned for secondary etiology - Abdominal bruits noted bilaterally, will repeat Renal US - F/U renin and aldosterone levels - Resume current regimen: Hydralazine 100mg PO BID, Nifedipine ER 60mg PO daily , Metoprolol ER 25mg PO daily, Clonidine 0.1 PO daily, Lisinopril 10mg PO daily , Triamterene-HCTZ 25mg/37.5mg 1 tab PO daily Hypokalemia - May be secondary to diuretics, and recent episodes of nausea and vomiting - Will follow up renin and aldosterone levels for secondary causes Hx Aortic Valve Insufficiency - Echo (02/23/17): Ejection fraction: 60%. Moderate concentric LVH, Left atrium mildly dilated, mild to moderate aortic regurgitation - F/U Repeat ECHO Prophylactic Measures - GI PPX: Pepcid - DVT PPX: SCDs, HepQ12 - HHD DW Dr. Joshi, Amy Hickman DO, PGY2
[2018-01-23] MEDS ORDERED: Potassium Chloride 20 mEq ER Tab PO ONE ×2 (05:04→05:46)
--- NOTE | 2018-01-23 07:13 | CP.PCM.PN ---
Objective - Vital Signs/Intake and Output Vital Signs (last 24 hours): Temp Pulse Resp BP Pulse Ox 98.8 F 68 20 131/71 98 01/23/18 06:20 01/23/18 06:20 01/23/18 06:20 01/23/18 06:20 01/23/18 06:20 - Medications Medications: Current Medications Famotidine (Pepcid) 20 mg PO DAILY [facility] Heparin Sodium (Porcine) (Heparin) 5,000 units SC Q12 [facility] Ibuprofen (Motrin Tab) 400 mg PO Q8H PRN PRN Reason: Pain, Mild (1-3) Ketorolac Tromethamine (Toradol) 30 mg IVP Q6 PRN PRN Reason: Pain, moderate (4-7) Ondansetron HCl (Zofran Inj) 4 mg IVP Q6H PRN PRN Reason: Nausea/Vomiting - Labs Labs: 01/22/18 23:10 01/22/18 23:10
[2018-01-23 08:00] VITALS: RESP 20
--- NOTE | 2018-01-23 08:01 | CP.PCM.PN ---
Subjective - Date & Time of Evaluation Date of Evaluation: 01/23/18 Time of Evaluation: 07:57 - Subjective Subjective: Pleuritic chest pain with left pleural effusion Abd pain non specific H/o acclerated htn on 6 meds, young age, hypokalemia, previously renal art doppler has been negative and renin levels have been low, will need to check renin aldosterone levels again, echo Plan Chest CT IR to drain pl effusion diagnostic Aldosterone level, echo, renal art doppler repeat, urinary metanephrines as w/u for secondary causes of htn pain control gi/dvt prophylaxsis. See orders for detail. Objective - Vital Signs/Intake and Output Vital Signs (last 24 hours): Temp Pulse Resp BP Pulse Ox 98.2 F 81 14 134/68 100 01/23/18 07:28 01/23/18 07:28 01/23/18 07:28 01/23/18 07:28 01/23/18 07:28 - Medications Medications: Current Medications Clonidine HCl (Catapres) 0.1 mg PO DAILY [facility] Famotidine (Pepcid) 20 mg PO DAILY [facility] Heparin Sodium (Porcine) (Heparin) 5,000 units SC Q12 [facility] Hydralazine HCl (Apresoline) 100 mg PO BID [facility] Ibuprofen (Motrin Tab) 400 mg PO Q8H PRN PRN Reason: Pain, Mild (1-3) Ketorolac Tromethamine (Toradol) 30 mg IVP Q6 PRN PRN Reason: Pain, moderate (4-7) Lisinopril (Zestril) 10 mg PO DAILY [facility] Metoprolol Succinate (Toprol Xl) 25 mg PO DAILY [facility] Nifedipine (Procardia Xl) 60 mg PO DAILY [facility] Ondansetron HCl (Zofran Inj) 4 mg IVP Q6H PRN PRN Reason: Nausea/Vomiting Triamterene/HCTZ (Dyazide 25 Mg-37.5 Mg) 1 cap PO DAILY [facility] - Labs Labs: 01/22/18 23:10 01/22/18 23:10
[2018-01-23 08:19] LABS: INR 1.2; PROTHROMBIN TIME 12.7 SECONDS (9.7-12.2)
[2018-01-23] MEDS ORDERED: NIFEdipine 60 mg ER Tab PO SCH (10:00)
[2018-01-23] MEDS ORDERED: Metoprolol Succinate 25 mg XL Tab PO SCH (10:00)
[2018-01-23] MEDS ORDERED: hydroCHLOROthiazide-Triamterene 25 mg-37.5 mg Cap UD PO SCH (10:00)
--- NOTE | 2018-01-23 11:00 | CP.PCM.PCO ---
Physician Communication Note - Physician Communication Note Physician Communication Note: Please see above.
--- NOTE | 2018-01-23 11:25 | CT ---
Date of service: 01/23/2018 PROCEDURE: CT Abdomen and Pelvis without intravenous contrast HISTORY: left flank pain, nausea and vomiting COMPARISON: None. TECHNIQUE: CT scan of the abdomen and pelvis was performed without administration of intravenous contrast. Oral contrast was not administered. Coronal and sagittal reformatted images were obtained. . Radiation dose: Total exam DLP = 644.81 mGy-cm. This CT exam was performed using one or more of the following dose reduction techniques: Automated exposure control, adjustment of the mA and/or kV according to patient size, and/or use of iterative reconstruction technique. FINDINGS: LOWER THORAX: The visualized right lung is clear. There is a small left pleural effusion. LIVER: Normal in size. No intrahepatic ductal dilatation. GALLBLADDER AND BILE DUCTS: No calcified gallstones. No biliary dilatation PANCREAS: Normal in size. No ductal dilatation. SPLEEN: Normal in size. ADRENALS: Normal in size. No discrete nodule. KIDNEYS AND URETERS: Normal in size without nephrolithiasis. No hydronephrosis. VASCULATURE: No aortic aneurysm. BOWEL: The small bowel loops are normal in caliber. The colon is normal in size. No bowel dilatation or wall thickening. No bowel obstruction. APPENDIX: Normal appendix. PERITONEUM: No free fluid. No free air. LYMPH NODES: No enlarged lymph nodes. BLADDER: Well distended and grossly normal in appearance. REPRODUCTIVE: The uterus is normal in size BONES: No acute fracture. Within normal limits for the patient's age OTHER FINDINGS: None. IMPRESSION: No acute abdominal or pelvic abnormality. No hydronephrosis or nephrolithiasis. No obstructive uropathy. Small left pleural effusion. A preliminary report was provided by [facility].
--- NOTE | 2018-01-23 14:06 | CT ---
Date of service: 01/23/2018 PROCEDURE: CT Chest without contrast HISTORY: eval LLL effusion COMPARISON: None. TECHNIQUE: Contiguous axial images were obtained through the chest without intravenous contrast enhancement. Sagittal and coronal reconstructions were performed. Radiation dose (DLP): 364 mGy-cm. This CT exam was performed using one or more of the following dose reduction techniques: Automated exposure control, adjustment of the mA and/or kV according to patient size, and/or use of iterative reconstruction technique. FINDINGS: LUNGS: Excluding the left pleural effusion is discoid atelectasis bordering it, no pulmonary consolidation suggested. Visualized airway clear. MEDIASTINUM: The thoracic aorta is dilated the ascending is 2.8 cm. There is greater dilatation of the descending thoracic aorta measuring approximately 4.7 x 4.8 cm. No displaced intimal calcifications suggested. There is some dependent posterior slight hyperdensity in the descending aneurysmally dilated aortic - intraluminal blood/ hemorrhagic thrombus here is a consideration. To evaluate for dissection consider contrast enhanced CT thoracic angiogram. Prior to completing this report, these findings and recommendation were called up to the floor the 5th floor were the patient is located. These findings were directly discussed with the nurse taking care of the patient Sin at 1:50 p.m. a physician was not available at the time of the call. The nurse has my name -where I am located [facility] outpatient for further discussion as needed. The left pleural effusion posterior to this hyperdense material has Hounsfield units mostly equal to or less 20 The heart is enlarged. No pericardial fusion. Main pulmonary artery unremarkable. No vascular congestion. No lymphadenopathy. PLEURA: There is a small left pleural effusion present. No pneumothorax. BONES: No fracture. No destructive lesion. UPPER ABDOMEN: Grossly unremarkable. OTHER FINDINGS: None. IMPRESSION: Descending thoracic aortic aneurysm. Most of this dilatation is at and/or just distal to the aortic arch branching. The ascending aortic arch is 2.8 cm. The posterior dependent hyperdensity within the descending thoracic aortic aneurysmal segment is compatible with hemorrhagic material - hemorrhagic thrombus is 1 consideration. No displaced calcified intima noted. The left pleural effusion Hounsfield units are not suggestive of a hemo thorax. A CT of the chest/ CTA is recommended for further evaluation. To evaluate for dissection consider contrast enhanced CT thoracic angiogram. Prior to completing this report, these findings and recommendation were called up to the 5th floor were the patient is located. These findings were directly discussed with the nurse taking care of the patient Sin at 1:50 p.m. on 01/23/2018. As a physician was not available at the time of the call. The nurse has my name -where I am located [facility] outpatient for further discussion as needed.
--- NOTE | 2018-01-23 15:02 | CARD ---
APPROVED REPORT Date of service: 01/23/2018 EXAM: Two-dimensional and M-mode echocardiogram with Doppler and color Doppler. Other Information Quality : GoodRhythm : NSR INDICATION Pleural Effusion lvh RISK FACTORS Hypertension Hyperlipidemia 2D DIMENSIONS IVSd2.4 (0.7-1.1cm)Aortic Root (2D)2.8 (2.0-3.7cm) LVDd4.7 (3.9-5.9cm)PWd1.8 (0.7-1.1cm) LVDs3.6 (2.5-4.0cm) M-Mode DIMENSIONS RVDd1.94 (2.1-3.2cm)Left Atrium (MM)4.16 (2.5-4.0cm) IVSd1.53 (0.7-1.1cm)Aortic Root3.44 (2.2-3.7cm) LVDd5.41 (4.0-5.6cm)Aortic Cusp Exc.1.25 (1.5-2.0cm) PWd1.67 (0.7-1.1cm)FS (%) 37 % LVDs3.44 (2.0-3.8cm)LVEF (%)66 (>50%) Aortic Valve AoV Peak Lkoonxbn055.3cm/Jony Peak GR.16mmHgAI P 1/2 [id number] Mitral Valve MV E Ipnfxymj01.9cm/sMV A Mprdbclv88.0cm/sE/A ratio1.1 TDI E/Lateral E'0.0E/Medial E'0.0 Tricuspid Valve TR Peak Iwxafghu453iz/sTR Peak Gr.13ckLvRHWR96xhBz LEFT VENTRICLE The Left Ventricle is mildly dilated. There is moderate concentric left ventricular hypertrophy. The left ventricular systolic function is normal. The left ventricular ejection fraction is within the normal range. There is normal LV segmental wall motion. Transmitral Doppler flow pattern is Grade II-pseudonormal filling dynamics. Elevated left atrial pressure. RIGHT VENTRICLE The right ventricle is normal size. The right ventricular systolic function is normal. ATRIA The left atrium is mildly dilated. The right atrium is moderately dilated. The interatrial septum is intact with no evidence for an atrial septal defect. AORTIC VALVE The aortic valve is normal in structure. There is mild aortic regurgitation. MITRAL VALVE The mitral valve is normal in structure. Mitral regurgitation is trace. TRICUSPID VALVE The tricuspid valve is normal in structure. There is moderate tricuspid regurgitation. Right ventricular systolic pressure is estimated at 52 mmHg. There is moderate pulmonary hypertension. PULMONIC VALVE The pulmonary valve is normal in structure. There is trace to mild pulmonic valvular regurgitation. GREAT VESSELS The aortic root is normal in size. The IVC is normal in size and collapses >50% with inspiration. PERICARDIAL EFFUSION There is no pericardial effusion. <Conclusion> There is moderate concentric left ventricular hypertrophy. The left ventricular systolic function is normal. There is normal LV segmental wall motion. Moderate diastolic dysfunction Grade II-pseudonormal filling dynamics. Elevated left atrial pressure. The right ventricular systolic function is normal. Mild to moderate bi-atrial enlargement. There is mild aortic regurgitation. There is moderate tricuspid regurgitation. Right ventricular systolic pressure is estimated at - 52 mmHg compatible with moderate pulmonary hypertension. There is no pericardial effusion.
--- NOTE | 2018-01-23 16:39 | CP.PCM.CON ---
History of Present Illness - History of Present Illness History of Present Illness: Cardiothoracic Surgery Consult Note for Dr. Matthews This is a 32F with a PMH of severe refractory hypertension, and aortic insufficiency. She reports that she had a gradual onset of left lower quadrant abdominal and back pain that began on Monday. She has never had nay pain like this before. Nothing makes it better and nothing makes it worse. The pain does not radiate. She reports dyspnea with exertion. She denies chest pain. PMH: HTN, History of Aortic Valve Insufficiency PSH: (2009), D&C x4; ex-lap with salpingectomy (due to ectopic 2016) Meds: Hydralazine 100mg PO BID, Nifidepine ER 60mg PO daily, Metoprolol Tartrate 25mg PO BID ALL: Coconut FH: Mother, alive, age 73, HTN. Father, age 64, alive, HTN SH: Smokes 2 cigarettes a day, social alcohol use, denied any illicit drug use Review of Systems - Review of Systems All systems: reviewed and no additional remarkable complaints except - Cardiovascular Cardiovascular: Chest Pain. absent: Dyspnea - Respiratory Respiratory: Dyspnea Past Patient History - Infectious Disease Hx of Infectious Diseases: None - Past Medical History & Family History Past Medical History?: Yes - Past Social History Smoking Status: Former Smoker - CARDIAC Hx Cardiac Disorders: Yes Hx Hypertension: Yes (Gestational Hypertension, and chronic) - PULMONARY Hx Respiratory Disorders: No - NEUROLOGICAL Hx Neurological Disorder: No - HEENT Hx HEENT Problems: No - RENAL Hx Chronic Kidney Disease: No - ENDOCRINE/METABOLIC Hx Endocrine Disorders: No - HEMATOLOGICAL/ONCOLOGICAL Hx Blood Disorders: No - INTEGUMENTARY Hx Dermatological Problems: No - MUSCULOSKELETAL/RHEUMATOLOGICAL Hx Falls: No - GASTROINTESTINAL Hx Gastrointestinal Disorders: No - GENITOURINARY/GYNECOLOGICAL Hx Genitourinary Disorders: No - PSYCHIATRIC Hx Substance Use: No - SURGICAL HISTORY Hx Surgeries: Yes Hx Section: Yes (x1) Other/Comment: 02/22/17, Exploratory laparotomy with salpingectomy - ANESTHESIA Hx Anesthesia: Yes Hx Anesthesia Reactions: No Hx Malignant Hyperthermia: No Has any member of the family had a problem w/ anesthesia?: No Meds Allergies/Adverse Reactions: Allergies Allergy/AdvReac Type Severity Reaction Status Date / Time coconuts Allergy Uncoded 07/28/17 21:19 - Medications Medications: Current Medications Clonidine HCl (Catapres) 0.1 mg PO DAILY [facility] Last Admin: 01/23/18 09:54 Dose: 0.1 mg Famotidine (Pepcid) 20 mg PO DAILY [facility] Last Admin: 01/23/18 09:54 Dose: 20 mg Heparin Sodium (Porcine) (Heparin) 5,000 units SC Q12 [facility] Hydralazine HCl (Apresoline) 100 mg PO BID [facility] Last Admin: 01/23/18 09:54 Dose: 100 mg Ibuprofen (Motrin Tab) 400 mg PO Q8H PRN PRN Reason: Pain, Mild (1-3) Ketorolac Tromethamine (Toradol) 30 mg IVP Q6 PRN PRN Reason: Pain, moderate (4-7) Last Admin: 01/23/18 09:55 Dose: 30 mg Lisinopril (Zestril) 10 mg PO DAILY [facility] Last Admin: 01/23/18 09:54 Dose: 10 mg Metoprolol Succinate (Toprol Xl) 25 mg PO DAILY [facility] Last Admin: 01/23/18 09:54 Dose: 25 mg Nifedipine (Procardia Xl) 60 mg PO DAILY [facility] Last Admin: 01/23/18 09:54 Dose: 60 mg Ondansetron HCl (Zofran Inj) 4 mg IVP Q6H PRN PRN Reason: Nausea/Vomiting Last Admin: 01/23/18 09:54 Dose: 4 mg Pneumococcal Polyvalent Vaccine (Pneumovax 23 Vaccine) 0.5 ml IM .ONCE ONE Stop: 01/24/18 10:01 Triamterene/HCTZ (Dyazide 25 Mg-37.5 Mg) 1 cap PO DAILY [facility] Last Admin: 01/23/18 09:55 Dose: 1 cap Physical Exam - Constitutional Appears: Non-toxic, No Acute Distress - Head Exam Head Exam: ATRAUMATIC, NORMOCEPHALIC - Eye Exam Eye Exam: EOMI - ENT Exam ENT Exam: Mucous Membranes Moist - Respiratory Exam Respiratory Exam: NORMAL BREATHING PATTERN - Cardiovascular Exam Cardiovascular Exam: +S1, +S2 - GI/Abdominal Exam GI & Abdominal Exam: Soft, Tenderness. absent: Distended, Firm, Guarding - Extremities Exam Extremities exam: Positive for: normal inspection - Neurological Exam Neurological exam: Alert, Oriented x3 - Psychiatric Exam Psychiatric exam: Normal Affect, Normal Mood - Skin Skin Exam: Dry, Intact Results - Vital Signs Recent Vital Signs: Last Vital Signs Temp 98.5 F 01/23/18 15:05 Pulse 65 01/23/18 15:05 Resp 20 01/23/18 15:05 BP 101/61 01/23/18 15:05 Pulse Ox 97 01/23/18 15:05 - Labs Result Diagrams: 01/22/18 23:10 01/22/18 23:10 Labs: Laboratory Results - last 24 hr 01/22/18 01/22/18 01/22/18 23:10 23:10 23:10 WBC 8.9 D RBC 4.36 Hgb 10.8 L Hct 33.3 L MCV 76.5 L MCH 24.8 L MCHC 32.5 L RDW 18.6 H Plt Count 194 MPV 9.1 Neut % (Auto) 68.7 Lymph % (Auto) 17.7 L [place] % (Auto) 10.5 H Eos % (Auto) 2.2 Baso % (Auto) 0.9 Neut # (Auto) 6.1 Lymph # (Auto) 1.6 [place] # (Auto) 0.9 H Eos # (Auto) 0.2 Baso # (Auto) 0.1 PT INR APTT Sodium 133 Potassium 2.8 L Chloride 93 L Carbon Dioxide 27 Anion Gap 16 BUN 11 Creatinine 1.3 H Est GFR ( Amer) 57 Est GFR (Non-Af Amer) 47 Random Glucose 90 Calcium 9.2 Total Bilirubin 0.7 AST 15 ALT 20 Alkaline Phosphatase 96 NT-Pro-B Natriuret Pep Total Protein 7.2 Albumin 3.8 Globulin 3.4 Albumin/Globulin Ratio 1.1 Lipase 51 Urine Color Yellow Urine Clarity Hazy Urine pH 5.0 Ur Specific [place] 1.004 Urine Protein Negative Urine Glucose (UA) Normal Urine Ketones Negative Urine Blood Negative Urine Nitrate Negative Urine Bilirubin Negative Urine Urobilinogen Normal Ur Leukocyte Esterase Trace Urine WBC (Auto) 8 H Urine RBC (Auto) 3 Ur Squamous Epith Cells 46 H Ur Transition Epith Cell < 1 Urine Bacteria Occ H Urine HCG, Qual Negative 01/23/18 01/23/18 05:54 08:08 WBC RBC Hgb Hct MCV MCH MCHC RDW Plt Count MPV Neut % (Auto) Lymph % (Auto) [place] % (Auto) Eos % (Auto) Baso % (Auto) Neut # (Auto) Lymph # (Auto) [place] # (Auto) Eos # (Auto) Baso # (Auto) PT 12.7 H INR 1.2 APTT 32 Sodium Potassium Chloride Carbon Dioxide Anion Gap BUN Creatinine Est GFR ( Amer) Est GFR (Non-Af Amer) Random Glucose Calcium Total Bilirubin AST ALT Alkaline Phosphatase NT-Pro-B Natriuret Pep 1600 H Total Protein Albumin Globulin Albumin/Globulin Ratio Lipase Urine Color Urine Clarity Urine pH Ur Specific [place] Urine Protein Urine Glucose (UA) Urine Ketones Urine Blood Urine Nitrate Urine Bilirubin Urine Urobilinogen Ur Leukocyte Esterase Urine WBC (Auto) Urine RBC (Auto) Ur Squamous Epith Cells Ur Transition Epith Cell Urine Bacteria Urine HCG, Qual Assessment & Plan - Assessment and Plan (Free Text) Assessment: 32F with an ascending and descending aortic aneurism Plan: 1L bolus, CT Aortogram followed by more IVF If pt remains asymptomatic she can followup with Dr. Matthews outpatient call [phone] D/W Dr. Cassie Crawford PGY3
[2018-01-23] MEDS ORDERED: Lactated Ringer's 1,000 ML IV ONE (16:45)
[2018-01-23] MEDS ORDERED: Lactated Ringer's 500 ML IV ONE (16:46)
[2018-01-23] MEDS ORDERED: Iodixanol 320 MG/ML 100 ML BOTTLE IV ONE (19:54)
--- NOTE | 2018-01-23 22:47 | CP.PCM.CON ---
History of Present Illness - History of Present Illness History of Present Illness: Patient seen and evaluated Uncontrolled HTN with electrolyte issues- Renal/HTN consult with Dr. Dangelo Ruiz/Alysha Descending thoracic and Abdominal aortic dissection: Consult with Dr. Stephie isaac in am Past Patient History - Infectious Disease Hx of Infectious Diseases: None - Past Medical History & Family History Past Medical History?: Yes - Past Social History Smoking Status: Former Smoker - CARDIAC Hx Cardiac Disorders: Yes Hx Hypertension: Yes (Gestational Hypertension, and chronic) - PULMONARY Hx Respiratory Disorders: No - NEUROLOGICAL Hx Neurological Disorder: No - HEENT Hx HEENT Problems: No - RENAL Hx Chronic Kidney Disease: No - ENDOCRINE/METABOLIC Hx Endocrine Disorders: No - HEMATOLOGICAL/ONCOLOGICAL Hx Blood Disorders: No - INTEGUMENTARY Hx Dermatological Problems: No - MUSCULOSKELETAL/RHEUMATOLOGICAL Hx Falls: No - GASTROINTESTINAL Hx Gastrointestinal Disorders: No - GENITOURINARY/GYNECOLOGICAL Hx Genitourinary Disorders: No - PSYCHIATRIC Hx Substance Use: No - SURGICAL HISTORY Hx Surgeries: Yes Hx Section: Yes (x1) Other/Comment: 02/22/17, Exploratory laparotomy with salpingectomy - ANESTHESIA Hx Anesthesia: Yes Hx Anesthesia Reactions: No Hx Malignant Hyperthermia: No Has any member of the family had a problem w/ anesthesia?: No Meds Allergies/Adverse Reactions: Allergies Allergy/AdvReac Type Severity Reaction Status Date / Time coconuts Allergy Uncoded 07/28/17 21:19 - Medications Medications: Current Medications Clonidine HCl (Catapres) 0.1 mg PO DAILY [facility] Last Admin: 01/23/18 09:54 Dose: 0.1 mg Famotidine (Pepcid) 20 mg PO DAILY [facility] Last Admin: 01/23/18 09:54 Dose: 20 mg Heparin Sodium (Porcine) (Heparin) 5,000 units SC Q12 [facility] Hydralazine HCl (Apresoline) 100 mg PO BID [facility] Last Admin: 01/23/18 19:24 Dose: 100 mg Ibuprofen (Motrin Tab) 400 mg PO Q8H PRN PRN Reason: Pain, Mild (1-3) Ketorolac Tromethamine (Toradol) 30 mg IVP Q6 PRN PRN Reason: Pain, moderate (4-7) Last Admin: 01/23/18 17:50 Dose: 30 mg Lisinopril (Zestril) 10 mg PO DAILY [facility] Last Admin: 01/23/18 09:54 Dose: 10 mg Metoprolol Succinate (Toprol Xl) 25 mg PO DAILY [facility] Last Admin: 01/23/18 09:54 Dose: 25 mg Nifedipine (Procardia Xl) 60 mg PO DAILY [facility] Last Admin: 01/23/18 09:54 Dose: 60 mg Ondansetron HCl (Zofran Inj) 4 mg IVP Q6H PRN PRN Reason: Nausea/Vomiting Last Admin: 01/23/18 09:54 Dose: 4 mg Pneumococcal Polyvalent Vaccine (Pneumovax 23 Vaccine) 0.5 ml IM .ONCE ONE Stop: 01/24/18 10:01 Triamterene/HCTZ (Dyazide 25 Mg-37.5 Mg) 1 cap PO DAILY [facility] Last Admin: 01/23/18 09:55 Dose: 1 cap Results - Vital Signs Recent Vital Signs: Last Vital Signs Temp 98.5 F 01/23/18 15:05 Pulse 65 01/23/18 15:05 Resp 20 01/23/18 15:05 BP 101/61 01/23/18 15:05 Pulse Ox 97 01/23/18 15:05 - Labs Result Diagrams: 01/22/18 23:10 01/22/18 23:10 Labs: Laboratory Results - last 24 hr 01/22/18 01/22/18 01/22/18 23:10 23:10 23:10 WBC 8.9 D RBC 4.36 Hgb 10.8 L Hct 33.3 L MCV 76.5 L MCH 24.8 L MCHC 32.5 L RDW 18.6 H Plt Count 194 MPV 9.1 Neut % (Auto) 68.7 Lymph % (Auto) 17.7 L [place] % (Auto) 10.5 H Eos % (Auto) 2.2 Baso % (Auto) 0.9 Neut # (Auto) 6.1 Lymph # (Auto) 1.6 [place] # (Auto) 0.9 H Eos # (Auto) 0.2 Baso # (Auto) 0.1 PT INR APTT Sodium 133 Potassium 2.8 L Chloride 93 L Carbon Dioxide 27 Anion Gap 16 BUN 11 Creatinine 1.3 H Est GFR ( Amer) 57 Est GFR (Non-Af Amer) 47 Random Glucose 90 Calcium 9.2 Total Bilirubin 0.7 AST 15 ALT 20 Alkaline Phosphatase 96 NT-Pro-B Natriuret Pep Total Protein 7.2 Albumin 3.8 Globulin 3.4 Albumin/Globulin Ratio 1.1 Lipase 51 Urine Color Yellow Urine Clarity Hazy Urine pH 5.0 Ur Specific Ramsay 1.004 Urine Protein Negative Urine Glucose (UA) Normal Urine Ketones Negative Urine Blood Negative Urine Nitrate Negative Urine Bilirubin Negative Urine Urobilinogen Normal Ur Leukocyte Esterase Trace Urine WBC (Auto) 8 H Urine RBC (Auto) 3 Ur Squamous Epith Cells 46 H Ur Transition Epith Cell < 1 Urine Bacteria Occ H Urine HCG, Qual Negative 01/23/18 01/23/18 05:54 08:08 WBC RBC Hgb Hct MCV MCH MCHC RDW Plt Count MPV Neut % (Auto) Lymph % (Auto) [place] % (Auto) Eos % (Auto) Baso % (Auto) Neut # (Auto) Lymph # (Auto) [place] # (Auto) Eos # (Auto) Baso # (Auto) PT 12.7 H INR 1.2 APTT 32 Sodium Potassium Chloride Carbon Dioxide Anion Gap BUN Creatinine Est GFR ( Amer) Est GFR (Non-Af Amer) Random Glucose Calcium Total Bilirubin AST ALT Alkaline Phosphatase NT-Pro-B Natriuret Pep 1600 H Total Protein Albumin Globulin Albumin/Globulin Ratio Lipase Urine Color Urine Clarity Urine pH Ur Specific [place] Urine Protein Urine Glucose (UA) Urine Ketones Urine Blood Urine Nitrate Urine Bilirubin Urine Urobilinogen Ur Leukocyte Esterase Urine WBC (Auto) Urine RBC (Auto) Ur Squamous Epith Cells Ur Transition Epith Cell Urine Bacteria Urine HCG, Qual
[2018-01-24 00:13] VITALS: BP 110/65; PULSE 70; TEMP 98.7; O2SAT 98
[2018-01-24] MEDS ORDERED: Pneumococcal 23-Valent Vaccine IM ONE (10:00)
--- NOTE | 2018-01-24 10:44 | CT ---
PROCEDURE: CT Angiography Chest, Abdomen and Pelvis with and without intravenous contrast HISTORY: Evaluation of Aortic aneurysm COMPARISON: None. TECHNIQUE: Contiguous axial images of the chest, abdomen and pelvis were obtained in the phase of aortic enhancement. A noncontrast enhanced CT of the chest was also obtained to evaluate for possible intramural thrombus. Coronal and sagittal reformats were generated. IV dose administered: 100 mL Visipaque 320 Radiation dose: Total exam DLP = 1415.7 mGy-cm. This CT exam was performed using one or more of the following dose reduction techniques: Automated exposure control, adjustment of the mA and/or kV according to patient size, and/or use of iterative reconstruction technique. FINDINGS: AORTA (CHEST AND ABDOMEN): Descending thoracic aortic aneurysm measuring up to 4.7 cm with dissection flap beaking in from the aortic arch, distal to the great vessels, to the left common iliac artery with involvement of the proximal celiac artery. Small amount of intramural thrombus identified in the aortic arch and proximal descending thoracic aorta. Both lumens are widely patent and equally opacified. Ascending aorta and aortic root are not enlarged. The superior mesenteric artery, inferior mesenteric artery and the renal arteries are widely patent. The pelvic arteries are unremarkable. LUNGS: Left lower lobe atelectasis. No nodule, mass or consolidation. MEDIASTINUM: Unremarkable. Normal caliber aorta and pulmonary arterial trunk. No aortic dissection. Normal size heart. LYMPH NODES: Unremarkable. PLEURA: Small simple left pleural effusion. No pneumothorax. LIVER: Unremarkable. No gross lesion or ductal dilatation. GALLBLADDER AND BILE DUCTS: Unremarkable. PANCREAS: Unremarkable. No gross lesion or ductal dilatation. SPLEEN: Unremarkable. ADRENALS: Unremarkable. No mass. KIDNEYS AND URETERS: Unremarkable. No hydronephrosis. No solid mass. STOMACH AND BOWEL: Unremarkable. No obstruction. No gross mural thickening. APPENDIX: Normal appendix. PERITONEUM: Unremarkable. No free fluid. No free air. LYMPH NODES: Unremarkable. No enlarged lymph nodes. BLADDER: Unremarkable. REPRODUCTIVE: Unremarkable. BONES: No acute fracture. OTHER FINDINGS: None. IMPRESSION: Descending thoracoabdominal aortic dissection extending from the descending aorta, distal to the great vessels, to the left common iliac artery with extension/involvement of the proximal celiac artery. Thoracic aortic aneurysm measuring up to 4.7 cm. Small left pleural effusion.
== END 2018-01-24 00:30 | disposition short-term general hospital (02) | DRG 243 ==
LOC: C.ER 22:01 → C.9E 01-23 05:32 → C.5S 01-23 07:26
PROVIDERS: ADMIT Internal Medicine Pulmonary Disease; ATTEND Internal Medicine Pulmonary Disease
DX: M54.5 Low back pain (principal); J90 Pleural effusion, not elsewhere classified; I35.1 Nonrheumatic aortic (valve) insufficiency; E87.6 Hypokalemia; I10 Essential (primary) hypertension; Z87.891 Personal history of nicotine dependence; I71.2 Thoracic aortic aneurysm, without rupture